=== PATIENT | male | born 1980 | race Caucasian/White ===

== ENCOUNTER 2020-07-15 15:00 | Outpatient (REF) | payer MEDICARE, MEDICAID, SELFPAY | END 2020-07-15 15:01 | disposition home or self-care (01) | LOC: HO.LAB 15:00 | PROVIDERS: PCP Internal Medicine; Visit Provider Internal Medicine | DX: Z20.828 Contact with and (suspected) exposure to other viral communicable diseases (principal) | CPT/HCPCS: 87635 ==

== ENCOUNTER 2020-10-10 13:14 | Outpatient (REF) | payer MEDICARE, MEDICAID, SELFPAY | END 2020-10-10 13:15 | disposition home or self-care (01) | LOC: HO.LAB 13:14 | PROVIDERS: PCP Internal Medicine; Visit Provider Internal Medicine | DX: Z20.822 Contact with and (suspected) exposure to COVID-19 (principal) | CPT/HCPCS: 36415; C9803; U0003 ==

== ENCOUNTER 2020-11-26 04:10 | Inpatient (IN) | payer MEDICARE, MEDICAID, SELFPAY ==
[2020-11-26] VITALS (10 sets, daily range): BP systolic 107–150; BP diastolic 66–91; PULSE 70–112; RESP 16–20; TEMP 36.4–37.4; O2SAT 94–100; BMI 34.4
--- NOTE | ~2020-11-26 | XR_ITS ---
EXAMINATION: XR SHOULDER, LEFT CLINICAL INFORMATION: Pain left shoulder COMPARISON: None TECHNIQUE: AP external rotation, Grashey, scapular Y, and axillary views of the left shoulder. FINDINGS: There is mild reduction in the left AC joint space with periarticular spurring. The glenohumeral joint space is normal. There is no visible acute fracture, dislocation or subluxation. The soft tissues are normal. XR/XR shoulder LT min 2V IMPRESSION: Mild degenerative changes left AC joint. No visible acute fracture or dislocation seen.
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
[2020-11-26] MEDS: LORazepam 1 MG TABLET 2 MG PO (04:40)
[2020-11-26 04:49] LABS: Basophils Absolute Auto 0.1 X10*3/uL (0.0-0.2); Basophils Percent Auto 0.5 % (0-2); Eosinophils Absolute Auto 0.1 X10*3/uL (0.0-0.4); Eosinophils Percent Auto 0.6 % (0-4); Imm Gran Abs Auto 0.04 X10*3/uL (0.00-0.03); Imm Gran Pct Auto 0.3 % (0.0-0.4); Lymphocytes Absolute Auto 3.7 X10*3/uL (1.2-4.9); Lymphocytes Percent Auto 25.8 % (20-40); Mean Corpuscular HGB Conc 34.1 g/dl (31.0-36.0); Mean Corpuscular Hemoglobin 29.8 pg (27.0-33.0); Mean Corpuscular Volume 87.3 fL (80-98); Mean Platelet Volume 9.1 fL (9.4-12.4); Monocytes Absolute Auto 0.9 X10*3/uL (0.1-1.2); Monocytes Percent Auto 6.3 % (2-11); Neutrophils Absolute Auto 9.5 X10*3/uL (2.0-8.3); Neutrophils Percent Auto 66.5 % (45-73); Platelet Count 414 X10*3/uL (160-400); Red Blood Count 5.04 X10*6/uL (4.60-5.80); Red Cell Distribution Width 13.2 % (11.0-16.0); White Blood Count 14.3 X10*3/uL (4.8-10.8)
[2020-11-26 04:50] LABS: MANUAL DIFF FLAG NO
--- NOTE | 2020-11-26 05:02 | PC.NURSE ---
AMBER ASSIGNED TO PT.
[2020-11-26 05:03] LABS: COVID-19 Test Negative (Negative)
[2020-11-26 05:12] LABS: Ethanol 149 mg/dL
[2020-11-26 05:16] LABS: Alanine Aminotransferase 20 U/L (0-40); Albumin Level 4.8 g/dL (3.5-5.0); Alkaline Phosphatase 64 U/L (39-117); Anion Gap 18 (12-20); Aspartate Amino Transferase 16 U/L (5-37); Bilirubin Direct < 0.2 mg/dL (0.0-0.5); Bilirubin Total 0.2 mg/dL (0.0-1.0); Blood Urea Nitrogen 12 mg/dL (9-16); Calcium 9.3 mg/dL (8.4-10.2); Carbon Dioxide 24 mmol/L (22-29); Chloride 104 mmol/L (96-108); Creatinine Clr Calc Pharmacy 85.2; Estimated Glomerular Filt Rate > 60; Glucose Random 114 mg/dL (60-115); Potassium 4.4 mmol/L (3.3-5.1); Sodium 142 mmol/L (135-145); Total Protein 7.8 g/dL (6.5-8.0)
[2020-11-26] MEDS: Ibuprofen 600 MG TABLET PO (05:49)
[2020-11-26 06:27] LABS: Amphetamine Screen Urine Not Detected (Not Detect); Barbiturates, Urine Not Detected (Not Detect); Benzodiazepines Screen Urine Not Detected (Not Detect); Cannabinoid Screen Urine POSITIVE (Not Detect); Cocaine Screen Urine POSITIVE (Not Detect); Opiate Screen Urine Not Detected (Not Detect); Phencyclidine Screen Urine Not Detected (Not Detect)
--- NOTE | 2020-11-26 07:03 | PC.NURSE ---
received report from Cherelle cruz pt is currently asleep, respirations even and unlabored, sitter in place
--- NOTE | 2020-11-26 09:42 | PC.NURSE ---
Pt transferred from main ED to Pod, report received from MOISES Villarreal. Pt awake, reports +SI, no plan ('whatever it takes.' Reports +etoh use daily, last used this morning. Pt in common area, familiar w/ pod, aware that he is waiting for [facility] evaluation. No other concerns reported at this time.
--- NOTE | 2020-11-26 11:26 | PC.NURSE ---
Pt alert, pleasant. awaiting [facility] evaluation. No concerns reported.
--- NOTE | 2020-11-26 12:00 | PC.NURSE ---
[facility] called to confirm receipt of fax- per clinician, fax received.
--- NOTE | 2020-11-26 14:25 | MHC.CARE ---
CARE Team assessed patient to need inpatient psychiatric treatment, he will remain in the ED until a placement is secured. At this time, patient is voluntary for treatment but is on a section 12A and considered not safe to leave. Providers updated about plan of care.
--- NOTE | 2020-11-26 16:30 | PC.NURSE ---
Pt resting, resp unlabored. Pt to xray and returned w/o incident.
--- NOTE | 2020-11-26 18:09 | PC.NURSE ---
Pt resting, denies any concerns at this time, no symptoms of withdrawal except for mild sensitivity.
[2020-11-27 00:11] VITALS: BP 126/75; PULSE 73; RESP 17; TEMP 36.9; O2SAT 97
[2020-11-27] MEDS: QUEtiapine Fumarate 50 MG TABLET 100 MG PO (00:37)
--- NOTE | 2020-11-27 00:49 | PC.NURSE ---
Patient reported he is struggling to sleep needs medication for help, stated he used to take serequel 300 mg at bedtime, pharmacy claim history checked and patient was Serequel 300 mg untill last January, provide notified/ordered Serequel 100 mg administered as ordered/pending effect, will continue to monitor.
--- NOTE | 2020-11-27 08:51 | PC.NURSE ---
PT SLEEPING. BEDSEARCH CONTINUES. CLOSE OBSERVATION MAINTAINED
[2020-11-27 08:54] VITALS: RESP 16
--- NOTE | 2020-11-27 15:16 | PC.NURSE ---
Pt asleep at current. No signs of distress. Respirations even and unlabored.
[2020-11-27 16:34] VITALS: BP 147/86; PULSE 89; RESP 20; TEMP 36.1; O2SAT 100
--- NOTE | 2020-11-27 17:02 | PC.NURSE ---
Pt reporting increasing anxiety, requesting medication. Provider aware.
[2020-11-27] MEDS: LORazepam 1 MG TABLET 2 MG PO (17:08)
--- NOTE | 2020-11-27 17:47 | PC.NURSE ---
Pt meeting with recovery unit operator at current
--- NOTE | 2020-11-27 17:53 | MHC.RECOVSUP ---
? Reason for consult : Support o Current location: [facility] o Identified substance use concern: Cocaine - Support ? Intervention: o Community resources provided o Harm reduction discussion ? Plan: o Patient to follow up with H after discharge ? Additional information: Patient is looking for support in his recovery.. Resources was given to Patient. Places that he would be able to go when he discharge from [facility] and find support he is looking for
--- NOTE | 2020-11-27 19:14 | PC.NURSE ---
Patient in milieu watching TV, socializing with co-patient, mood pleasant, no distress reported, will continue to monitor.
[2020-11-27] MEDS: QUEtiapine Fumarate 200 MG TABLET 100 MG PO (21:12)
--- NOTE | 2020-11-27 22:03 | PC.NURSE ---
Patient in bed appears resting, took his Serequel 100 mg as requested, no distress reported, will continue to monitor.
[2020-11-28] VITALS: BP 109/79; PULSE 113; RESP 18; TEMP 36.2; O2SAT 96
--- NOTE | 2020-11-28 | ECG_ITS ---
Test Reason : COCAINE USE Blood Pressure : / mmHG Vent. Rate : 071 BPM Atrial Rate : 071 BPM P-R Int : 148 ms QRS Dur : 096 ms QT Int : 390 ms P-R-T Axes : 011 059 016 degrees QTc Int : 423 ms Normal sinus rhythm Nonspecific ST and T wave abnormality Abnormal ECG When compared with ECG of 26-DEC-2019 11:03, No significant change was found Referred By: Yahir Grissom Electronically Signed By:FRANCOISE ADAMS MD
[2020-11-28 06:00] VITALS: RESP 18
--- NOTE | 2020-11-28 07:03 | PC.NURSE ---
Report received. PT currently sleeping, respirations even and unlabored, in no apparent distress. PT is inpatient bedsearch.
[2020-11-28 09:00] VITALS: BP 114/62; PULSE 73; RESP 18; TEMP 37; O2SAT 97
[2020-11-28] MEDS: LORazepam 1 MG TABLET 2 MG PO (10:50)
--- NOTE | 2020-11-28 12:39 | PC.NURSE ---
Nurse to nurse completed with Mary Jane from
[2020-11-28 16:20] VITALS: BP 130/67; PULSE 80; TEMP 36.9
[2020-11-28] MEDS: LORazepam 0.5 MG TABLET 1 MG PO (20:04)
--- NOTE | 2020-11-28 20:13 | PC.NURSE ---
this is one of several M5 admissions for this 40 year old male. legal CV. dx MDD, cocaine/alcohol use d/o. was referred to by N as well as the CARE team. nurse to nurse and collateral information obtained prior to admission. pt with no significant medical issues. cooperative to admission process. reports + depression and anxiety. reports + si with increase in thoughts when using substances but feels supported in hospital environment. reports poor sleep due to intrusive nightmares and reports feeling easily triggered. is homeless and recently sold car and belongings he had in storage. reports + ah. reports + street drug and alcohol intake. when asked how he supports use responded ''you can figure those things out'' ''I hustle'' reports binge drinking of alcohol several times a month with use of cocaine ''a gram at a time'' last use prior to ER admit. denies current w/d s/s ''i don't experience w/d'' [facility] VS:130/67, 80. reports he needs mental health treatment and does not want to consider placement at a [facility] at this time. has + behavioral health providers. reports being on probation but does not need to check in with them at this time but did sign release , also reports he needs to call the [place] court system tomorrow as he has a pending court date. oriented to unit. is visible in milieu.
--- NOTE | 2020-11-28 20:52 | PC.ADMIT ---
pharmacy-[facility] reports that pt has not had filled prescription for latuda since May. Seroquel he reports taking 300mg at hs is from an old prescription. reports medication clarification can be obtained from provider Jitendra Davalos
[2020-11-28] MEDS: QUEtiapine Fumarate 100 MG TABLET PO (23:12)
[2020-11-29] MEDS: traZODone HCL 50 MG TABLET PO (00:37)
[2020-11-29] MEDS: LORazepam 0.5 MG TABLET 1 MG PO ×3 (00:37→22:01)
[2020-11-29 06:00] VITALS: BP 96/58; PULSE 82; RESP 16; TEMP 36.7
[2020-11-29] MEDS: Lurasidone HCl 20 MG TABLET PO (08:25)
[2020-11-29] MEDS: Nicotine 21 MG PATCH.TD24 TRANSDERMA (08:25)
[2020-11-29 08:44] LABS: Cholesterol 239 mg/dL; Estimated Average Glucose 117 mg/dL; HDL Cholesterol 45 mg/dL; Hemoglobin A1c % 5.7 %; LDL Cholesterol Calculated 125 mg/dl; Triglycerides 345 mg/dL
[2020-11-29 09:08] LABS: Free T4 (Free Thyroxine) 1.01 ng/dL (0.71-1.85); Thyroid Stimulating Hormone 2.42 uIU/mL (0.32-4.0)
[2020-11-29 12:00] VITALS: BP 134/85; PULSE 86; RESP 18; TEMP 36.1; O2SAT 97
[2020-11-29 16:00] VITALS: BP 136/78; PULSE 89; TEMP 37.1
[2020-11-29 18:00] VITALS: BP 136/78; PULSE 89; TEMP 37.1
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
[2020-11-29] MEDS: QUEtiapine Fumarate 200 MG TABLET PO (22:01)
[2020-11-30 06:20] VITALS: BP 97/55; PULSE 67; RESP 18; TEMP 36.2; O2SAT 97
[2020-11-30 08:00] VITALS: BP 123/56; PULSE 66; RESP 16; TEMP 36.2; O2SAT 97
[2020-11-30] MEDS: Nicotine 21 MG PATCH.TD24 TRANSDERMA (08:56)
[2020-11-30] MEDS: Lurasidone HCl 20 MG TABLET PO (08:57)
[2020-11-30 10:00] VITALS: BP 104/58; PULSE 56; RESP 16; TEMP 36.9; O2SAT 97
[2020-11-30 11:53] LABS: Folate 15.9 ng/mL (> or = 4.0); Vitamin B12 442 pg/mL (200-900)
--- NOTE | 2020-11-30 12:13 | P.PNPSI_ITS ---
Subjective Subjective Date of Service: 11/30/20 Reason For Visit: Alcohol cocaine cannabis use D/O major depression Subjective Notes: Conditional Voluntary Interim History: Patient was pleasant and cooperative. Reported difficulties with insomnia and racing thoughts. I discussed CSS and patient is interested in [facility]. Later in afternoon patient became agitated and needed p.r.n. meds per staff. Will continue to monitor. Encourage abstinence and motivation Medication Compliance: Yes Side effects from medications: No Attending Groups: No Review of Systems Review of Systems Constitutional : No Fever, No Chills ENT/Mouth : No Ear Pain, No Nasal Congestion, No sore throat Eyes: No Eye Pain, No Swelling, No Redness Cardiovascular : No Chest Pain, No SOB Respiratory : No Cough, No Sputum, No Dyspnea Gastrointestinal : No Nausea, No Vomiting, No Diarrhea, No Hematochezia, No Melena Genitourinary : No Dysuria, No Urinary Frequency, No Hematuria Musculoskeletal : No Myalgias Skin : No Skin Lesions, No rash Neuro : No Weakness, No Numbness, No Paresthesias, No Dizziness, No Headache Psych : positive Anxiety, positive Depression, positive SI/HI Heme/Lymph: No Lymphadenopathy Endocrine : No Polyuria, No Polydipsia All other systems reviewed and are negative Reports behavioral changes Psychiatric: Reports anxiety, Reports behavioral changes, Reports depression, Reports difficulty concentrating, Reports hopelessness, Reports irritability, Reports mood swings, Reports homicidal ideation and Reports suicidal ideation Mental Status Exam Mental Status Exam Patient Appearance: Appropriate Patient Orientation: Person, Place, Time and Situation Level of Consciousness: Alert Patient Behavior: Talkative Mood Description: Labile and Angry Affect Description: Labile Patient Cognition Impaired: No Ability to Follow Directions: Good Speech Pattern: Spontaneous Speech and Loud Memory Description: Intact Diagnostics Vital Signs (24Hr): Vital Signs - 24 hr 11/29/20 16:00 11/29/20 18:00 11/30/20 06:20 Temperature 98.7 F 98.7 F 97.2 F Pulse Rate 89 89 67 Respiratory Rate 18 Blood Pressure 136/78 136/78 97/55 L Pulse Oximetry 97 11/30/20 08:00 11/30/20 10:00 Temperature 97.2 F 98.4 F Pulse Rate 66 56 Respiratory Rate 16 16 Blood Pressure 123/56 L 104/58 L Pulse Oximetry 97 97 Body Mass Index 34.4 Labs Results: 11/26/20 04:42 11/26/20 04:42 Labs: Laboratory Results - last 48 hr 11/29/20 11/29/20 11/29/20 08:03 08:03 08:03 Estimat Average Glucose 117 Hemoglobin A1c % 5.7 Magnesium 2.0 Triglycerides 345 Cholesterol 239 LDL Cholesterol, Calc 125 HDL Cholesterol 45 Vitamin B12 442 Folate 15.9 TSH 2.42 Free T4 1.01 Imaging Radiology Impressions: ITS Impressions Shoulder X-Ray 11/26/20 15:32 IMPRESSION: Mild degenerative changes left AC joint. No visible acute fracture or dislocation seen. Medications Medications Current Medications Generic Name Dose Route Start Last Admin Trade Name Freq PRN Reason Stop Dose Admin Acetaminophen 650 mg 11/28/20 13:03 Acetaminophen 325 Mg Tablet PO Q6H PRN Headache/Pain Mild Scale (1-3) Al Hydroxide/Mg Hydroxide 30 ml 11/28/20 13:03 Magnesium Hydrox/Alum Hydrox 30 Ml Oral.Susp PO Q6H PRN Heartburn/Nausea Hydroxyzine HCl 25 mg 11/28/20 13:03 Hydroxyzine Hcl 25 Mg Tablet PO BEDTIME PRN Anxiety Lorazepam 1 mg 11/28/20 13:03 11/29/20 22:01 Lorazepam 0.5 Mg Tablet PO 1 mg Q4H PRN Administration withdrawl, anxiety Lurasidone HCl 20 mg 11/29/20 09:00 11/30/20 08:57 Lurasidone Hcl 20 Mg Tablet PO 20 mg DAILY FLORENTIN Administration Magnesium Hydroxide 30 ml 11/28/20 13:03 Milk Of Magnesia 30 Ml Oral.Susp PO DAILY PRN Constipation Nicotine 21 mg 11/28/20 20:25 11/30/20 08:56 Nicotine 21 Mg Patch.Td24 TRANSDERMA 21 mg DAILY FLORENTIN Administration Nicotine Polacrilex 2 mg 11/28/20 20:20 Nicotine Polacrilex 2 Mg Lozenge BUCCAL Q2H PRN Nicotine Cravings Quetiapine Fumarate 200 mg 11/29/20 21:00 11/29/20 22:01 Quetiapine Fumarate 200 Mg Tablet PO 200 mg BEDTIME FLORENTIN Administration Trazodone HCl 50 mg 11/28/20 13:03 11/29/20 00:37 Trazodone Hcl 50 Mg Tablet PO 50 mg BEDTIME PRN Administration Insomnia Allergies Allergies Allergy/AdvReac Type Severity Reaction Status Date / Time No Known Allergies Allergy Unverified 06/06/20 16:26 [No Known Allergies*] Assessment & Plan Assessment & Plan (1) Bipolar 1 disorder: Status: Acute Code(s): F31.9 - Bipolar disorder, unspecified Assessment and Plan: -Increase Seroquel to 300 mg q.h.s. and add p.r.n.. Greater than 50% of the session was spent on counseling and/or coordination of care Reason for contiued inpatient stay Substantial Risk for: harm to self and rapid decompensation
[2020-11-30] MEDS: LORazepam 0.5 MG TABLET 1 MG PO ×2 (13:58→18:51)
[2020-11-30] MEDS: QUEtiapine Fumarate 100 MG TABLET PO (16:17)
[2020-11-30 18:00] VITALS: BP 132/84; PULSE 89; RESP 18; TEMP 36.6
[2020-11-30] MEDS: QUEtiapine Fumarate 300 MG TABLET PO (21:34)
[2020-12-01 06:35] VITALS: PULSE 71; RESP 18; TEMP 36.4; O2SAT 97
[2020-12-01 08:00] VITALS: BP 118/75; PULSE 70; RESP 16; TEMP 36.6; O2SAT 97
--- NOTE | 2020-12-01 08:02 | HO.PSYCHPN ---
Subjective Subjective Date of Service: 12/01/20 Reason For Visit: Alcohol cocaine cannabis use D/O major depression Interim History: 12/01/2020: Patient had a difficult afternoon yesterday. But responded well to p.r.n. . Was triggered by a male peer. Continues to experience agitation and anxiety. 11/30/2020atient was pleasant and cooperative. Reported difficulties with insomnia and racing thoughts. I discussed CSS and patient is interested in [facility]. Later in afternoon patient became agitated and needed p.r.n. meds per staff. Will continue to monitor. Encourage abstinence and motivation Review of Systems Review of Systems Constitutional : No Fever, No Chills ENT/Mouth : No Ear Pain, No Nasal Congestion, No sore throat Eyes: No Eye Pain, No Swelling, No Redness Cardiovascular : No Chest Pain, No SOB Respiratory : No Cough, No Sputum, No Dyspnea Gastrointestinal : No Nausea, No Vomiting, No Diarrhea, No Hematochezia, No Melena Genitourinary : No Dysuria, No Urinary Frequency, No Hematuria Musculoskeletal : No Myalgias Skin : No Skin Lesions, No rash Neuro : No Weakness, No Numbness, No Paresthesias, No Dizziness, No Headache Psych : positive Anxiety, positive Depression, positive SI/HI Heme/Lymph: No Lymphadenopathy Endocrine : No Polyuria, No Polydipsia All other systems reviewed and are negative Reports behavioral changes Psychiatric: Reports anxiety, Reports behavioral changes, Reports depression, Reports difficulty concentrating, Reports hopelessness, Reports irritability, Reports mood swings, Reports homicidal ideation and Reports suicidal ideation Mental Status Exam Mental Status Exam Patient Appearance: Appropriate Patient Orientation: Person, Place, Time and Situation Level of Consciousness: Alert Patient Behavior: Talkative Mood Description: Labile and Angry Affect Description: Labile Patient Cognition Impaired: No Ability to Follow Directions: Good Speech Pattern: Spontaneous Speech and Loud Memory Description: Intact Diagnostics Vital Signs (24Hr): Vital Signs - 24 hr 11/30/20 08:00 11/30/20 10:00 11/30/20 18:00 Temperature 97.2 F 98.4 F 97.8 F Pulse Rate 66 56 89 Respiratory Rate 16 16 18 Blood Pressure 123/56 L 104/58 L 132/84 Pulse Oximetry 97 97 12/01/20 06:35 Temperature 97.6 F Pulse Rate 71 Respiratory Rate 18 Blood Pressure Pulse Oximetry 97 Body Mass Index 34.4 Labs Results: 11/26/20 04:42 11/26/20 04:42 Labs: Laboratory Results - last 48 hr 11/29/20 11/29/20 11/29/20 08:03 08:03 08:03 Estimat Average Glucose 117 Hemoglobin A1c % 5.7 Magnesium 2.0 Triglycerides 345 Cholesterol 239 LDL Cholesterol, Calc 125 HDL Cholesterol 45 Vitamin B12 442 Folate 15.9 TSH 2.42 Free T4 1.01 Imaging Radiology Impressions: ITS Impressions Shoulder X-Ray 11/26/20 15:32 IMPRESSION: Mild degenerative changes left AC joint. No visible acute fracture or dislocation seen. Medications Medications Current Medications Generic Name Dose Route Start Last Admin Trade Name Freq PRN Reason Stop Dose Admin Acetaminophen 650 mg 11/28/20 13:03 Acetaminophen 325 Mg Tablet PO Q6H PRN Headache/Pain Mild Scale (1-3) Al Hydroxide/Mg Hydroxide 30 ml 11/28/20 13:03 Magnesium Hydrox/Alum Hydrox 30 Ml Oral.Susp PO Q6H PRN Heartburn/Nausea Hydroxyzine HCl 25 mg 11/28/20 13:03 Hydroxyzine Hcl 25 Mg Tablet PO BEDTIME PRN Anxiety Lorazepam 1 mg 11/28/20 13:03 11/30/20 18:51 Lorazepam 0.5 Mg Tablet PO 1 mg Q4H PRN Administration withdrawl, anxiety Lurasidone HCl 20 mg 11/29/20 09:00 11/30/20 08:57 Lurasidone Hcl 20 Mg Tablet PO 20 mg DAILY FLORENTIN Administration Magnesium Hydroxide 30 ml 11/28/20 13:03 Milk Of Magnesia 30 Ml Oral.Susp PO DAILY PRN Constipation Nicotine 21 mg 11/28/20 20:25 11/30/20 08:56 Nicotine 21 Mg Patch.Td24 TRANSDERMA 21 mg DAILY FLORENTIN Administration Nicotine Polacrilex 2 mg 11/28/20 20:20 Nicotine Polacrilex 2 Mg Lozenge BUCCAL Q2H PRN Nicotine Cravings Quetiapine Fumarate 100 mg 11/30/20 16:05 11/30/20 16:17 Quetiapine Fumarate 100 Mg Tablet PO 50 mg Q4H PRN Administration anxiety/restlessness Quetiapine Fumarate 300 mg 11/30/20 21:00 11/30/20 21:34 Quetiapine Fumarate 300 Mg Tablet PO 300 mg BEDTIME FLORENTIN Administration Trazodone HCl 50 mg 11/28/20 13:03 11/29/20 00:37 Trazodone Hcl 50 Mg Tablet PO 50 mg BEDTIME PRN Administration Insomnia Allergies Allergies Allergy/AdvReac Type Severity Reaction Status Date / Time No Known Allergies Allergy Unverified 06/06/20 16:26 [No Known Allergies*] Assessment & Plan Assessment & Plan (1) Bipolar 1 disorder: Status: Acute Code(s): F31.9 - Bipolar disorder, unspecified Assessment and Plan: -Increase Seroquel to 300 mg q.h.s. and add p.r.n.. Greater than 50% of the session was spent on counseling and/or coordination of care Reason for contiued inpatient stay Substantial Risk for: harm to self and inability to function
[2020-12-01] MEDS: Lurasidone HCl 20 MG TABLET PO (08:32)
[2020-12-01] MEDS: Nicotine 21 MG PATCH.TD24 TRANSDERMA (08:32)
[2020-12-01] MEDS: LORazepam 0.5 MG TABLET 1 MG PO ×3 (11:25→20:50)
[2020-12-01 18:00] VITALS: BP 127/74; PULSE 95; RESP 18; TEMP 36.3
[2020-12-01] MEDS: QUEtiapine Fumarate 100 MG TABLET PO (20:50)
[2020-12-01 20:54] VITALS: BP 130/78; PULSE 103; RESP 18; TEMP 36.7
[2020-12-01] MEDS: QUEtiapine Fumarate 300 MG TABLET PO (22:12)
[2020-12-02 03:50] VITALS: BP 110/71; PULSE 100; RESP 18; TEMP 36.3; O2SAT 97
[2020-12-02] MEDS: Lurasidone HCl 20 MG TABLET PO (10:07)
[2020-12-02] MEDS: LORazepam 0.5 MG TABLET 1 MG PO ×2 (10:47→15:52)
[2020-12-02] MEDS: QUEtiapine Fumarate 100 MG TABLET PO (15:52)
[2020-12-02 16:00] VITALS: BP 128/71; PULSE 90; RESP 18; TEMP 36.5
--- NOTE | 2020-12-02 17:32 | HO.PSYCHPN ---
Subjective Subjective Date of Service: 12/02/20 Reason For Visit: Alcohol cocaine cannabis use D/O major depression Subjective Notes: Conditional Voluntary Interim History: Pt reports sleep latency sx, 2-3 hours. Once asleep is able to remain asleep. Ongoing SI, discussed hearing voices, since youth. Main issue is my drifting situation . Son learned of pt's admission over the weekend. Pt discussed his ongoing worry and rumination regarding son's mother. She has had a conversation with pt regarding his needing to stabilize to care for their son-he worries she has a terminal illness as she has recently had medical issues that were serious. This concept is overwhelming, citing housing as the structural issue, however taking on primary parenting responsibility is a thought he does not begin to know how to prepare for. States niece told his son he was hospitalized-he was able to explain but with great anxiety and distress. Unsure if he can manage this, but wants guidance to try. Medication Compliance: Yes Side effects from medications: No Attending Groups: No Review of Systems Review of Systems Yes all other systems are reviewed and are negative (denies medical sx.) Reports behavioral changes Psychiatric: Reports abnormal sleep pattern, Reports anxiety, Reports behavioral changes, Reports depression, Reports difficulty concentrating, Reports auditory hallucinations, Reports hopelessness, Reports irritability, Reports mood swings and Reports panic attacks Mental Status Exam Mental Status Exam Patient Appearance: Disheveled (towel over his head) Patient Orientation: Person, Place, Time and Situation Level of Consciousness: Awake Patient Behavior: Appropriate, Talkative, Cooperative, Anxious, Distractible and Good Eye Contact Mood Description: Constricted Affect Description: Constricted Patient Cognition Impaired: No Ability to Follow Directions: Good Speech Pattern: Clear and Spontaneous Speech Memory Description: Intact Hallucinations: Auditory Delusions: Not Present Thought Content: positive for [place] and positive for Circumstantial Depressive Symptoms: Increased Anxiety, Insomnia, Diff. Making Decisions, Increased Irritability, Difficulty Sleeping, Feelings of Worthlessness, Feelings of Guilt, Unhappiness, Thoughts of /Suicide (+ SI) and Low Self Esteem Judgement: Fair Diagnostics Vital Signs (24Hr): Vital Signs - 24 hr 12/01/20 18:00 12/01/20 20:54 12/02/20 03:50 Temperature 97.4 F 98.0 F 97.4 F Pulse Rate 95 103 H 100 Respiratory Rate 18 18 18 Blood Pressure 127/74 130/78 110/71 Pulse Oximetry 97 Body Mass Index 34.4 Labs Results: 11/26/20 04:42 11/26/20 04:42 Imaging Radiology Impressions: ITS Impressions Shoulder X-Ray 11/26/20 15:32 IMPRESSION: Mild degenerative changes left AC joint. No visible acute fracture or dislocation seen. Medications Medications Current Medications Generic Name Dose Route Start Last Admin Trade Name Freq PRN Reason Stop Dose Admin Acetaminophen 650 mg 11/28/20 13:03 Acetaminophen 325 Mg Tablet PO Q6H PRN Headache/Pain Mild Scale (1-3) Al Hydroxide/Mg Hydroxide 30 ml 11/28/20 13:03 Magnesium Hydrox/Alum Hydrox 30 Ml Oral.Susp PO Q6H PRN Heartburn/Nausea Hydroxyzine HCl 25 mg 11/28/20 13:03 Hydroxyzine Hcl 25 Mg Tablet PO BEDTIME PRN Anxiety Lorazepam 1 mg 11/28/20 13:03 12/02/20 15:52 Lorazepam 0.5 Mg Tablet PO 1 mg Q4H PRN Administration withdrawl, anxiety Lurasidone HCl 20 mg 11/29/20 09:00 12/02/20 10:07 Lurasidone Hcl 20 Mg Tablet PO 20 mg DAILY FLORENTIN Administration Magnesium Hydroxide 30 ml 11/28/20 13:03 Milk Of Magnesia 30 Ml Oral.Susp PO DAILY PRN Constipation Nicotine 21 mg 11/28/20 20:25 12/02/20 10:09 Nicotine 21 Mg Patch.Td24 TRANSDERMA Not Given DAILY FLORENTIN Nicotine Polacrilex 2 mg 11/28/20 20:20 Nicotine Polacrilex 2 Mg Lozenge BUCCAL Q2H PRN Nicotine Cravings Quetiapine Fumarate 100 mg 11/30/20 16:05 12/02/20 15:52 Quetiapine Fumarate 100 Mg Tablet PO 100 mg Q4H PRN Administration anxiety/restlessness Quetiapine Fumarate 300 mg 11/30/20 21:00 12/01/20 22:12 Quetiapine Fumarate 300 Mg Tablet PO 300 mg BEDTIME FLORENTIN Administration Trazodone HCl 50 mg 11/28/20 13:03 11/29/20 00:37 Trazodone Hcl 50 Mg Tablet PO 50 mg BEDTIME PRN Administration Insomnia Allergies Allergies Allergy/AdvReac Type Severity Reaction Status Date / Time No Known Allergies Allergy Unverified 06/06/20 16:26 [No Known Allergies*] Assessment & Plan Assessment & Plan (1) Bipolar 1 disorder: Status: Acute Code(s): F31.9 - Bipolar disorder, unspecified Assessment and Plan: -Increase Latuda to 40 mg daily. -Remeron 7.5 mg hs Greater than 50% of the session was spent on counseling and/or coordination of care Reason for contiued inpatient stay Substantial Risk for: harm to self, inability to function and rapid decompensation
[2020-12-02 18:00] VITALS: BP 128/71; PULSE 90; RESP 18; TEMP 36.5
[2020-12-02] MEDS: Mirtazapine 7.5 MG TABLET PO (22:03)
[2020-12-02] MEDS: Lurasidone HCl 40 MG TABLET PO (22:03)
[2020-12-02] MEDS: QUEtiapine Fumarate 300 MG TABLET PO (22:03)
[2020-12-03 06:25] VITALS: BP 87/54; PULSE 70; RESP 20; TEMP 36.4; O2SAT 97
[2020-12-03] MEDS: LORazepam 0.5 MG TABLET 1 MG PO (09:25)
[2020-12-03 12:48] LABS: COVID-19 Test Negative (Negative)
[2020-12-03] MEDS: QUEtiapine Fumarate 100 MG TABLET PO (14:16)
[2020-12-03] MEDS: LORazepam 1 MG TABLET 2 MG PO (17:11)
[2020-12-03 17:35] VITALS: BP 135/66; PULSE 101; TEMP 37.1
[2020-12-03] MEDS: Lurasidone HCl 40 MG TABLET PO (17:52)
--- NOTE | 2020-12-03 18:08 | HO.PSYCHPN ---
Subjective Subjective Date of Service: 12/03/20 Reason For Visit: Alcohol cocaine cannabis use D/O major depression Subjective Notes: 3 Day Interim History: Pt reports that his former employer has offered him a job and an apartment. Ex-partner has offered assistance with transportation to the job. Ex-partner and son visited and pt reports he is wanting to take this opportunity. Reviewed current symptoms. Pt reports sleep latency continues to be about 1.5 hours. Appetite is intact. Symptoms of depression and SI are lessened, denies current SI, plan or intent stating- I just need help with resources-then I need to take responsibility and make things work . Having a place to live is everything-the help from my boss and ex I am very thankful for. I need to take meds, not use and follow up. Medication Compliance: Yes Side effects from medications: No Attending Groups: No Review of Systems Review of Systems Yes all other systems are reviewed and are negative (denies today) Mental Status Exam Mental Status Exam Patient Appearance: Appropriate Patient Orientation: Person, Place, Time and Situation Level of Consciousness: Alert Patient Behavior: Talkative Mood Description: Anxious, Labile and Apprehensive Affect Description: Labile Patient Cognition Impaired: No Ability to Follow Directions: Good Speech Pattern: Spontaneous Speech Memory Description: Intact Hallucinations: None Delusions: Not Present Thought Process: Intact Thought Content: positive for Intact Depressive Symptoms: Increased Anxiety, Increased Irritability and Low Self Esteem Judgement: Good Diagnostics Vital Signs (24Hr): Vital Signs - 24 hr 12/03/20 06:25 Temperature 97.6 F Pulse Rate 70 Respiratory Rate 20 Blood Pressure 87/54 L Pulse Oximetry 97 Body Mass Index 34.4 Labs Results: 11/26/20 04:42 11/26/20 04:42 Labs: Laboratory Results - last 48 hr 12/03/20 12:09 COVID-19 ([facility]) Negative COVID-19 Clin Com See Note Imaging Radiology Impressions: ITS Impressions Shoulder X-Ray 11/26/20 15:32 IMPRESSION: Mild degenerative changes left AC joint. No visible acute fracture or dislocation seen. Medications Medications Current Medications Generic Name Dose Route Start Last Admin Trade Name Freq PRN Reason Stop Dose Admin Acetaminophen 650 mg 11/28/20 13:03 Acetaminophen 325 Mg Tablet PO Q6H PRN Headache/Pain Mild Scale (1-3) Al Hydroxide/Mg Hydroxide 30 ml 11/28/20 13:03 Magnesium Hydrox/Alum Hydrox 30 Ml Oral.Susp PO Q6H PRN Heartburn/Nausea Hydroxyzine HCl 25 mg 11/28/20 13:03 Hydroxyzine Hcl 25 Mg Tablet PO BEDTIME PRN Anxiety Lurasidone HCl 40 mg 12/02/20 21:00 12/02/20 22:03 Lurasidone Hcl 40 Mg Tablet PO 40 mg BEDTIME FLORENTIN Administration Magnesium Hydroxide 30 ml 11/28/20 13:03 Milk Of Magnesia 30 Ml Oral.Susp PO DAILY PRN Constipation Mirtazapine 7.5 mg 12/02/20 21:00 12/02/20 22:03 Mirtazapine 7.5 Mg Tablet PO 7.5 mg BEDTIME FLORENTIN Administration Nicotine 21 mg 11/28/20 20:25 12/03/20 08:40 Nicotine 21 Mg Patch.Td24 TRANSDERMA Not Given DAILY FLORENTIN Nicotine Polacrilex 2 mg 11/28/20 20:20 Nicotine Polacrilex 2 Mg Lozenge BUCCAL Q2H PRN Nicotine Cravings Quetiapine Fumarate 100 mg 11/30/20 16:05 12/03/20 14:16 Quetiapine Fumarate 100 Mg Tablet PO 100 mg Q4H PRN Administration anxiety/restlessness Quetiapine Fumarate 300 mg 11/30/20 21:00 12/02/20 22:03 Quetiapine Fumarate 300 Mg Tablet PO 300 mg BEDTIME FLORENTIN Administration Trazodone HCl 50 mg 11/28/20 13:03 11/29/20 00:37 Trazodone Hcl 50 Mg Tablet PO 50 mg BEDTIME PRN Administration Insomnia Allergies Allergies Allergy/AdvReac Type Severity Reaction Status Date / Time No Known Allergies Allergy Unverified 06/06/20 16:26 [No Known Allergies*] Assessment & Plan Assessment & Plan (1) Bipolar 1 disorder: Status: Acute Code(s): F31.9 - Bipolar disorder, unspecified Assessment and Plan: Tentative discharge for tomorrow on TDN (2) Polysubstance abuse: Status: Acute Code(s): F19.10 - Other psychoactive substance abuse, uncomplicated Greater than 50% of the session was spent on counseling and/or coordination of care Reason for contiued inpatient stay Substantial Risk for: stable for discharge
[2020-12-03] MEDS: QUEtiapine Fumarate 300 MG TABLET PO (21:58)
[2020-12-03] MEDS: Mirtazapine 7.5 MG TABLET PO (21:58)
[2020-12-04 06:30] VITALS: BP 94/51; PULSE 70; RESP 18; TEMP 36.3; O2SAT 97
--- NOTE | 2020-12-04 15:32 | PM.PSYDC ---
DS: Providers Provider Date of Service: 12/22/20 Date of admission: 11/28/20 13:03 Date of discharge: 12/04/20 Primary care physician: Jaime Hackett MD Admitting clinician: Lia Palomino Attending physician on admission: Raulito Baez Attending physician on discharge: Raulito Baez Discharging clinician: Lia Palomino DS: Diagnosis Discharge Diagnosis (1) Bipolar 1 disorder: Status: Acute Problem details: 40 yo male, to ER from mother's home after he threatened violence and suicide due to issues of homelessness, conflict within the family, substance abuse and underdeveloped coping skills. Pt reported to ER team auditory perceptual alteractions, command, telling him to burn the apartment building down. He reported a history of bipolar disorder diagnosis and treatment, having recently initiated Latuda with his out patient team, but had stopped taking this for approximately 5 weeks ORAL AND MAXILLOFACIAL SURGERY due to not attending appointments. (2) Polysubstance abuse: Status: Acute Problem details: Pt reports daily alcohol use, daily cocaine use and intermittent cannabis use. DS: Medications Discharge Medications Home Medications: Home Medications Medication Instructions Recorded Confirmed No Known Home Meds 11/29/20 11/29/20 Previous Rx's Medication Instructions Recorded lurasidone [Latuda] 40 mg PO BEDTIME #30 tab 12/04/20 mirtazapine 7.5 mg PO BEDTIME #30 tab 12/04/20 quetiapine 300 mg PO BEDTIME #30 tab 12/04/20 Discharge Plan Discharge Anticipated Discharge Date/Time: 12/04/20 12:00 Patient Disposition: Home, Self-Care Referrals: Cherelle Minor (therapist) [Other] - 12/10/20 12:00 pm (Telehealth appointment) Amee Walter (psychiatrist) [Other] - 01/01/21 10:00 am (Telehealth appointment) Jaime Hackett MD [Primary Care Provider] - 12/16/20 2:00 pm (in office) Discharge Medications: New Latuda 40 mg Tablet 40 mg PO BEDTIME Qty: 30 RF: 0 mirtazapine 7.5 mg Tablet 7.5 mg PO BEDTIME Qty: 30 RF: 0 quetiapine 300 mg Tablet 300 mg PO BEDTIME Qty: 30 RF: 0 No Action No Known Home Meds RF: 0 Discharge Orders: Discharge Order (Routine); Ordered 12/04/20 Ordered By: Lia Palomino Diet: advance to usual diet Activity on Discharge: As tolerated Stand Alone Forms: Patient Portal Discharge page, Community Support Care Plan Goals: Mood stabilization Sobriety Health Concerns: Bipolar Disorder Polysubstance Use Plan of Treatment: Attend scheduled appointments Take medications as directed You have chosen to leave the hospital before discharge was recommended. Your medications will be in need of adjustment. You may follow up with your out patient providers for this. You have indicated that you have been offered work and housing by your employer, thus your reason to leave early. Call and or return if you are feeling unsafe or believe you need re-evaluation for in patient care. Discharge Date/Time: 12/04/20 12:30 Mental Status Exam Mental Status Exam Patient Appearance: Appropriate Patient Orientation: Person, Place, Time and Situation Level of Consciousness: Alert Patient Behavior: Talkative and Anxious Mood Description: Constricted Affect Description: Constricted Patient Cognition Impaired: No Ability to Follow Directions: Good Speech Pattern: Spontaneous Speech Memory Description: Intact Hallucinations: None Delusions: Not Present Thought Process: Intact Thought Content: positive for Intact, positive for [place] and positive for Circumstantial Abnormal Motor Activity Signs and Symptoms: Restlessness Judgement: Good Data Data Completed and Pending Completed studies during hospitalization [Text1]: 11/29/20 11/29/20 11/29/20 08:03 08:03 08:03 Estimat Average Glucose 117 Hemoglobin A1c % 5.7 Magnesium 2.0 Triglycerides 345 Cholesterol 239 LDL Cholesterol, Calc 125 HDL Cholesterol 45 Vitamin B12 442 Folate 15.9 TSH 2.42 Free T4 1.01 COVID-19 ([facility]) COVID-19 Clin Com 12/03/20 12:09 Estimat Average Glucose Hemoglobin A1c % Magnesium Triglycerides Cholesterol LDL Cholesterol, Calc HDL Cholesterol Vitamin B12 Folate TSH Free T4 COVID-19 ([facility]) Negative COVID-19 Clin Com See Note Imaging Diagnostic Imaging Impressions Shoulder X-Ray 11/26/20 15:32 IMPRESSION: Mild degenerative changes left AC joint. No visible acute fracture or dislocation seen. DS: Summary Hospital Course Hospital Course: Pt signed a conditional voluntary for admission. He identified several stressors which, combined with his bipolar disorder and substance abuse precipitated increased lability and suicidal ideation, including chronic homelessness for approximately 10 years. Pt was accepted for [place] housing in 2019, however, he reports his mother declined this offer for him without his awareness. This initiated a family conflict and significant anger toward mother which persists and is an issue. Mother lives in senior housing and pt is unable to stay with her and as a result lives with friends, in friends cars etc. Pt also has no license, no transportation and no job. Recently, the mother of his 12 yo son confronted him and told him he needed to get his life organized and he would need to take on responsiblity for the child-pt discussed feeling terrifed that she has terminal illness and is here to begin to get help so he can provide stable parenting for his child. Pt restarted medications, titrated Latuda to 40 mg, Seroquel to 300 mg to assist with agitation and initiated Remeron 7.5 mg to assist with sleep quality. The mother of his child and his former employer made him an offer at the ending of the hospitalization to return to work, have an apartment supplied by his employer, and the child's mother would assist with transportation with the understanding pt would comply with out pt treatment and participate in addiction self-help. Pt accepted their offer and left the hospital early to begin work with the understanding that he would comply with out-patient treatment. His symptoms of agitation were present throughout the admission and did decrease with assistance in these three areas of his life. Time spent discussing smoking cessation with patient: 3 to 10 minutes Status at Discharge Cognitive/behavioral status at discharge: alert, oriented, denies SI, HI, no sx of psychosis, affect and mood constricted and apprehensive to begin these new opportunities offered to him. Functional status at discharge: independent ambulation Overall status at discharge: patient is progressing back to baseline Time Spent with Patient Time attestation: Total time spent providing and/or coordinating discharge services:35 Time spent: Greater than 30 minutes
== END 2020-12-04 12:30 | disposition home or self-care (01) | DRG 885 ==
LOC: HO.ED 09:27 → HO.PM5 11-28 13:40
PROVIDERS: Admitting Provider Psychiatry & Neurology Psychiatry; Emergency Provider Emergency Medicine; PCP Internal Medicine; Visit Provider Clinical Nurse Specialist Psychiatric/Mental Health, Adult
DX: F31.9 Bipolar disorder, unspecified (principal); R45.851 Suicidal ideations; Z20.822 Contact with and (suspected) exposure to COVID-19; F17.210 Nicotine dependence, cigarettes, uncomplicated; Z71.6 Tobacco abuse counseling; Z79.899 Other long term (current) drug therapy
CPT/HCPCS: 36415; 73030; 80048; 80061; 80076; 80307; 80320; 82607; 82746; 83036; 83735; 84439; 84443; 85025; 87635; 93005; 99285

== ENCOUNTER 2025-05-03 14:46 | Inpatient (IN) | payer MEDICARE, SELFPAY ==
[2025-05-03] VITALS (17 sets, daily range): BP systolic 107–160; BP diastolic 59–95; PULSE 70–101; RESP 12–26; TEMP 36.5; O2SAT 94–99; BMI 34.3
--- NOTE | ~2025-05-03 | CT_ITS ---
EXAMINATION: CT HEAD WITHOUT CONTRAST (STROKE PROTOCOL) CLINICAL INFORMATION: Dysarthria right hemibody weakness. COMPARISON: None available. TECHNIQUE: Contiguous axial imaging was performed from the skull base to vertex without intravenous administration of contrast. This CT examination was performed using dose optimization techniques as appropriate, variously including the following: *Automated exposure control *Adjustment of mA and/or kV according to patient size (this includes techniques or standardized protocols for targeted exams where dose is matched to indication/reason for exam; i.e. extremities or head) *Use of iterative reconstruction technique. DLP: 703 mg centimeter. FINDINGS: No acute intracranial hemorrhage, mass effect, midline shift, hydrocephalus or herniation. Bhat-white matter differentiation is normal. No increased density in the MCA. Posterior cranial fossa contents demonstrated no acute hemorrhage or gross mass effect. There is normal position of the cerebellar tonsils. No gross masses in the sellar/suprasellar region. The paranasal sinuses demonstrate no air-fluid levels. Tympanic cavities and mastoid cells are aerated. CT/CT head for STROKE IMPRESSION: No acute brain abnormality or acute hemorrhage. This critical result was discussed via tiger connect with emergency physician Dr. Antonio Steele at 3:00 PM hours on May 03, 2025. It was ascertained that the content and urgency of the report was understood at the time of direct communication. Electronically signed by: Hayden Murillo MD 05/03/2025 03:03 PM EDT
--- NOTE | ~2025-05-03 | XR_ITS ---
EXAMINATION: XR CHEST 1 VIEW HISTORY: Right-sided weakness, evaluate for pneumonia, COMPARISON: Comparison is made with the prior examination dated 10/23/2016. FINDINGS: A single AP portable view of the chest performed at 3:16 PM is submitted. There are low lung volumes. There are opacities in both upper lung zones which could represent pneumonia. Evaluation is limited by AP portable technique. There is no pleural effusion, pneumothorax, or pulmonary vascular congestion. The heart is normal in size. The bones are intact. XR/XR chest 1V IMPRESSION: Low lung volumes. Opacities in both upper lung zones which could represent pneumonia. PA and lateral views with improved inspiratory effort are recommended when the patient is able. Electronically signed by: Austin Ervin MD 05/03/2025 03:29 PM EDT
--- NOTE | ~2025-05-03 | MR_ITS ---
EXAMINATION: MR BRAIN WITHOUT IV CONTRAST HISTORY: CVA s/p TNK TECHNIQUE: Sagittal T1, and axial T1, FLAIR, T2, gradient echo, and diffusion weighted MR images of the brain were obtained. COMPARISON: Correlation is made with an unenhanced head CT dated 05/03/2025. FINDINGS: The pituitary is normal in size. The cerebellar tonsils are normally located. There are small foci of restricted diffusion in the left stone radiata and left basal ganglia, consistent with acute infarcts. This area is hyperintense on FLAIR and T2-weighted images. Bhat/white differentiation is normal. A few scattered punctate T2 hyperintensities are noted on the FLAIR and T2-weighted images, which are nonspecific, but often seen in the setting of small vessel ischemic disease. There is no mass effect or midline shift. No intra or extra-axial fluid collections are identified. Normal vascular flow voids are noted in the basilar and carotid arteries. The visualized paranasal sinuses are clear. MR/MR head/brain wo con IMPRESSION: Small acute infarcts in the left stone radiata and basal ganglia. Findings discussed with Dr. Miller via secure text message on 05/04/2025 at 4:02 PM. Electronically signed by: Austin Ervin MD 05/04/2025 04:03 PM EDT
--- NOTE | ~2025-05-03 | CT_ITS ---
EXAMINATION: CTA NECK WITH CONTRAST (STROKE) CTA BRAIN WITH CONTRAST (STROKE) CLINICAL INFORMATION: Suspect acute stroke. Assess for major vessel occlusion. Please call report. COMPARISON: CT brain without contrast performed earlier today. TECHNIQUE: CTA of the head and neck was performed in the axial plane from the mediastinum to the skull vertex using 70 mL Omnipaque 350 intravenous contrast. Additional reformatted multiplanar images including maximum intensity projection MIP images are generated on the CT workstation. This CT examination was performed using dose optimization techniques as appropriate, variously including the following: *Automated exposure control *Adjustment of mA and/or kV according to patient size (this includes techniques or standardized protocols for targeted exams where dose is matched to indication/reason for exam; i.e. extremities or head) *Use of iterative reconstruction technique FINDINGS: The degree of stenosis determined by criteria similar to NASCET. Brain: Postcontrast CT brain reveals no enhancing mass, edema or midline shift. The lateral ventricles are symmetrical and appear normal. There is symmetrical vascular distribution seen in both cerebral and cerebellar hemispheres. Chest CTA: The pulmonary artery and its bifurcation right and left pulmonary artery are normal. No intraluminal filling defect. The thoracic aorta is of normal caliber normal three-vessel branching. The origins are patent. The right brachiocephalic artery bifurcates normally into the right common carotid and subclavian artery. The origin of right vertebral artery of the subclavian is normal. The left common carotid and left subclavian arteries are widely patent. The right subclavian artery is of normal caliber Neck CTA: Bilateral common carotid artery, bulb and bifurcation into internal/external carotid arteries are widely patent. Both internal carotid arteries are patent throughout their course in the neck except for mild tortuosity and hair pin band in the distal segments. Both vertebral arteries are patent throughout the course of the neck with left vertebral artery slightly larger compared to the right side. Mild prominent bilateral tonsils is noted with mild concentric pharyngeal airway narrowing. No abnormal lymph nodes visualized Brain CTA: Vertebral arteries combine to form a widely patent basilar artery. The basilar artery bifurcates normally into bilateral posterior cerebral arteries. No aneurysm or dissection seen in the posterior circulation. Both internal carotid arteries are patent throughout the petrous, cavernous and supraclinoid ICA segments. Normal into anterior middle cerebral artery branches in middle cerebral arteries trifurcate normally in the sylvian fissure. Bone windows reveal no gross CT/CT angio head neck STROKE IMPRESSION: Unremarkable CTA neck. Unremarkable CTA brain. This critical test result is communicated to Dr. Josias Steele by phone in the ED at 3:40 PM. Electronically signed by: Oscar Beltran MD 05/03/2025 03:46 PM EDT
--- NOTE | ~2025-05-03 | CT_ITS ---
CLINICAL HISTORY: Recurrence of expressive aphasia and right-sided --- Additional Notes or Special Instructions: Weakness, patient received TNK rule out bleed CT head without contrast. COMPARISON: CT head dated 05/03/25 at 14:54 EDT FINDINGS: The visualized paranasal sinuses are clear. The mastoid air cells are clear. No calvarial fracture. No evidence for mass or mass effect. No intracranial hemorrhage or abnormal extra-axial fluid collection. No CT evidence of acute infarct. No evidence of hydrocephalus. The basilar cisterns are patent. Posterior fossa appears unremarkable. IMPRESSION: 1. No acute intracranial findings. This document has been electronically signed by: Charly Hung MD on 05/03/2025 17:55:21
--- NOTE | 2025-05-03 14:49 | ECG_ITS ---
Test Reason : STROKE Blood Pressure : */* mmHG Vent. Rate : 83 BPM Atrial Rate : 83 BPM P-R Int : 142 ms QRS Dur : 132 ms QT Int : 456 ms P-R-T Axes : 32 46 17 degrees QTcB Int : 535 ms Normal sinus rhythm with sinus arrhythmia Non-specific intra-ventricular conduction block Abnormal ECG When compared with ECG of 28-Nov-2020 09:16, Questionable change in QRS duration Referred By: Antonio Steele Electronically Signed By: Ciro Thurston
--- NOTE | 2025-05-03 14:49 | ED_ITS ---
HPI - Neuro Symptoms/Deficit General Chief Complaint: Stroke Stated Complaint: ?STROKE,DONNA R WEAK,SLURR,DROOP PER EMS Time Seen by Provider: 05/03/25 14:49 Source: patient and EMS Mode of arrival: EMS Limitations: no limitations History of Present Illness ED Provider: Dr. Antonio Steele HPI Narrative: 44-year-old male with a history of bipolar disorder, schizophrenia off medications for 1 year who presents emergency department for evaluation of sudden onset of right-sided hemiparalysis and dysarthric speech with last well- known time at 14:00 hours. The patient states that he went to visit his mother at [facility] in his taking the bus back to [facility]. He states that around 14:00 hours he noted numbness of the right side of his face, and right side of his body. He states the numbness resolved but then returned. He states that the bus ticket turning almost fell out of the seat because his right side was weak. When the patient got to a bus stop an ambulance was called and he was brought to emergency department for evaluation of possible stroke. On my evaluation the patient had right-sided facial droop with dysarthric speech and right paralysis of his arm and leg. Patient was weighed and then transferred to immediately to the CT scan. CT scan of the brain without IV contrast on my reading revealed no acute bleed, Dr. Rowan came to the emergency department and also read the CT scan is negative for bleed therefore the patient was given TNK while he was in CT. CT angiogram was then performed after TNK was given. The patient was then brought to room 2 and his symptoms completely resolved. Patient has no dysarthric speech and has full range of motion of his right side with no facial droop but no numbness. Related Data Home Medications ?Medication ?Instructions ?Recorded ?Confirmed No Known Home Meds 05/03/25 05/03/25 Allergies Allergy/AdvReac Type Severity Reaction Status Date / Time No Known Allergies (No Known Allergy Unverified 05/03/25 15:17 Allergies*) Review of Systems 2 Review of Systems: Yes all other systems are reviewed and are negative [facility] Past Medical History [facility] Narrative: Social history: The patient denies tobacco use. He states he occasionally drinks alcohol in the last drank 6 beers yesterday. Patient states that he smokes large marijuana blunts 6 times a day. Patient states that he has several social stressors including having to leave his apartment because he assuming his landlord and his mother being ill. Medical History Bipolar 1 disorder Schizophrenia Family History Family History Father Anxiety Mother Diabetes High blood pressure Social History Social History Household Members: Other Housing: Homeless Do you presently have visiting nurse or other home services: No Alcohol intake: current Alcohol intake frequency: holidays/special occasions only Cigarette Packs Per Day: 1 Cigarettes Per Day: 20.0 Years Smoked: since age 9 Second Hand Smoke Exposure: Yes Substance Use Type: Crack/Cocaine and Marijuana service: No Sexual orientation: Straight/Heterosexual Physical Exam 2 Vital Signs: Vital Signs: Last Vital Signs Temp 97.7 F 05/03/25 15:14 Pulse 81 05/03/25 15:30 Resp 21 H 05/03/25 15:30 BP 148/88 H 05/03/25 15:30 Pulse Ox 98 05/03/25 15:30 O2 Del Method Room Air 05/03/25 15:30 BMI result Body Mass Index 34.3 Vital signs revealed an elevated respiratory rate of 21 and elevated blood pressure of 148/88 Exam: General: Awake, alert, dysarthric but comprehensible speech Head: Normocephalic, atraumatic EENT: PERRL, Lids normal, sclera normal, conjunctiva normal, nose normal , ears normal, throat without erythema or exudates Neck: Supple, no adenopathy Lung: breath sounds symmetric, no wheezing, rales or rhonchi Chest: symmetric movement, nontender Heart: regular rate and rhythm, normal S1, S2 no murmurs or rubs Abdomen: soft, non-tender, nondistended, normal bowel sounds Back: no vertebral tenderness, no CVAT Extremities: no deformities, moves all extremities symmetrically Neuro: General: ?Awake, alert, oriented person, month and age, dysarthric, comprehensible speech Cranial nerves: ?Cranial nerves revealed a right facial droop Strength: Paralysis of the right upper and lower extremities Cerebellar: Initially unable to perform secondary to right-sided paralysis Psych: Pleasant, cooperative Medications Administered Generic Name Dose Route Start Last Admin Trade Name Freq PRN Reason Stop Dose Admin Sodium Chloride 1,000 mls @ 999 mls/hr 05/03/25 15:00 05/03/25 15:34 Ns IV 05/03/25 16:00 999 mls/hr .[id number] FLORENTIN Administration Discontinued Medications Generic Name Dose Route Start Last Admin Trade Name Freq PRN Reason Stop Dose Admin Iohexol 100 ml 05/03/25 15:15 05/03/25 15:16 Iohexol 350 Mg/Ml 100 Ml Infus..Btl IV 05/03/25 15:16 70 ml ONCE ONE Administration Tenecteplase 25 mg 05/03/25 14:52 05/03/25 15:05 Tenecteplase 50 Mg/10 Ml Kit IVPUSH 05/03/25 14:53 25 mg ONCE ONE Administration Medical Decision Making Medical Decision Making MDM Narrative: 44-year-old male with a history of bipolar disorder, schizophrenia off medications for 1 year who presents emergency department for evaluation of sudden onset of right-sided hemiparalysis and dysarthric speech with last well- known time at 14:00 hours. The patient states that he went to visit his mother at [facility] in his taking the bus back to [facility]. He states that around 14:00 hours he noted numbness of the right side of his face, and right side of his body. He states the numbness resolved but then returned. He states that the bus ticket turning almost fell out of the seat because his right side was weak. When the patient got to a bus stop an ambulance was called and he was brought to emergency department for evaluation of possible stroke. On my evaluation the patient had right-sided facial droop with dysarthric speech and right paralysis of his arm and leg. Patient was weighed and then transferred to immediately to the CT scan. CT scan of the brain without IV contrast on my reading revealed no acute bleed, Dr. Rowan came to the emergency department and also read the CT scan is negative for bleed therefore the patient was given TNK while he was in CT. CT angiogram was then performed after TNK was given. The patient was then brought to room 2 and his symptoms completely resolved. Patient has no dysarthric speech and has full range of motion of his right side with no facial droop but no numbness. Differential diagnosis: ?Includes but is not limited to stroke, tumor, mass effect, intracranial bleed, anemia, electrolyte abnormalities Course: 15:54 My independent interpretation patient's laboratory evaluation is as follows: WBC elevated 13,700-appears to be chronic. Normocytic anemia with an H&H of 13.9 and 39.9-chronic. Platelet count was normal 363,000. Coags normal. Glucose elevated 121. LFTs were normal. Triglycerides slightly elevated 164. Total cholesterol elevated 214. LDH elevated 128. HDL elevated 54. CT scan of the brain revealed no acute bleed or stroke. CT angiogram head and neck revealed no acute findings. 16:02 I did discuss the patient's presentation over tiger text with the covering ship captain, Dr. Miller and the patient will be admitted to the intensive care unit for further management of his stroke and TNK treatment. Admission/Observation Consideration of admission/observation: Escalation of care including admission/observation considered (Yes) Consult Healthcare Provider Management of the patient was discussed with: [employer] Production Technician (Full Stack Developer, Dr. Miller and neurologist, Dr. Rowan) Lab Data MDM Lab Attestation statement: I reviewed the patient's lab results. 05/03/25 15:08 05/03/25 15:08 Labs: Lab Results 05/03/25 05/03/25 Range/Units 14:54 15:08 WBC 13.7 H (4.8-10.8) X10*3/uL RBC 4.56 L (4.60-5.80) X10*6/uL Hgb 13.9 L (14.0-18.0) g/dl Hct 39.9 L (42.0-52.0) % MCV 87.5 (80.0-98.0) fL MCH 30.5 (27.0-33.0) pg MCHC 34.8 (31.0-36.0) g/dl RDW 14.1 (11.0-16.0) % Plt Count 363 (160-400) X10*3/uL MPV 9.0 L (9.4-12.4) fL Immature Gran % (Auto) 0.3 (0.0-0.4) % Neut % (Auto) 67.0 (45-73) % Lymph % (Auto) 25.5 (20-40) % [place] % (Auto) 6.7 (2-11) % Eos % (Auto) 0.3 (0-4) % Baso % (Auto) 0.2 (0-2) % Lymph # (Auto) 3.5 (1.2-4.9) X10*3/uL [place] # (Auto) 0.9 (0.1-1.2) X10*3/uL Eos # (Auto) 0.0 (0.0-0.4) X10*3/uL Baso # (Auto) 0.0 (0.0-0.2) X10*3/uL Abs Immat Gran (auto) 0.04 H (0.00-0.03) X10*3/uL Absolute Neuts (auto) 9.2 H (2.0-8.3) x10*3/uL Absolute Nucleated RBC 0.000 (0.0-0.012) X10*3/uL Nucleated RBC % (auto) 0.0 (0.0-0.2) /100WBC PT 10.5 L (10.9-12.4) SEC Whole Blood PT 13.1 (11.1-13.5) sec INR 0.9 (0.9-1.1) Whole Blood INR 1.1 (0.9-1.1) APTT 26.9 (26.7-34.1) SEC Sodium 138 (135-145) mmol/L Potassium 3.6 (3.3-5.1) mmol/L Chloride 105 (96-108) mmol/L Carbon Dioxide 22 (22-29) mmol/L Anion Gap 15 (12-20) BUN 12 (9-16) mg/dL Creatinine 0.76 (0.5-1.4) mg/dL Estim Creat Clear Calc 139.2 Estimated GFR > 60 POC Glucose 132 H (60-115) mg/dL Random Glucose 121 H (60-115) mg/dL Calcium 8.9 (8.4-10.2) mg/dL Total Bilirubin 0.4 (0.0-1.0) mg/dL Direct Bilirubin 0.2 (0.0-0.5) mg/dL AST 20 (5-37) U/L ALT 16 (0-40) U/L Alkaline Phosphatase 66 (39-117) U/L Total Protein 6.9 (6.5-8.0) g/dL Albumin 4.4 (3.5-5.0) g/dL Triglycerides 164 H (<150) mg/dL Cholesterol 214 H (<200) mg/dL LDL Cholesterol, Calc 128 H (<100) mg/dL HDL Cholesterol 54 (>40) mg/dL Independent Interpretation I performed an independent interpretation of an: EKG Interpretation: My independent interpretation patient's 12 EKG is as follows, normal sinus rhythm with a rate of 83, normal AR interval, prolonged QRS of 132 milliseconds, prolonged QTC of 535 milliseconds, nonspecific intraventricular conduction delay, no ST segment elevation, no ST segment depression, no PACs, no PVCs, no significant T-wave abnormalities. Radiology Impression Discussion of test interpretation with radiology: I have reviewed the radiologist's reading. Radiologist Impression: CT head for STROKE IMPRESSION: No acute brain abnormality or acute hemorrhage. This critical result was discussed via tiger connect with emergency physician Dr. Antonio Steele at 3:00 PM hours on May 03, 2025. It was ascertained that the content and urgency of the report was understood at the time of direct communication. Electronically signed by: Hayden Murillo MD 05/03/2025 03:[address] angio head neck STROKE IMPRESSION: Unremarkable CTA neck. Unremarkable CTA brain. This critical test result is communicated to Dr. Josias Steele by phone in the ED at 3:40 PM. Electronically signed by: Oscar Beltran MD 05/03/2025 03:46 PM EDT Independent Historian Clinical information obtained from an independent historian. History obtained from or confirmed by: EMS Chronic Conditions Patient?s care impacted by: Other (Bipolar disorder) NIH Stroke Scale Internal: Initial- Upon Arrival Level of Consciousness: Alert Level of Consciousness Questions: Answers both questions correctly Level of Consciousness Commands: Performs both tasks correctly Best Gaze: Normal Visual: No visual loss Critical Care Time Critical Care Time Critical Care Time: Yes Total Critical Care Time: 55 Attestation: Critical Care: The patient was critically ill with a high probability of imminent or life threatening deterioration. I spent greater than 30 minutes of discontinuous time evaluating the patient,delivering critical care at the bedside, discussing and evaluating pertinent data with consultants. Critical care time does not include time spent performing separately billable procedures or teaching. Total time spent performing critical care was 55 minutes. Discharge Plan Discharge Patient Disposition: Admitted As Inpatient Print Language: Tristanian
[2025-05-03 15:03] LABS: Prothrombin Time Whole Bld POC 13.1 sec (11.1-13.5); ~PT, ~INR - Anti Coag Clinic 1.1 (0.9-1.1)
[2025-05-03 15:05] LABS: Glucose, Whole Blood 132 mg/dL (60-115)
[2025-05-03 15:12] LABS: MANUAL DIFF FLAG NO
[2025-05-03 15:13] LABS: Hematocrit 39.9 % (42.0-52.0); Hemoglobin 13.9 g/dl (14.0-18.0); Imm Gran Abs Auto 0.04 X10*3/uL (0.00-0.03); Imm Gran Pct Auto 0.3 % (0.0-0.4); Lymphocytes Absolute Auto 3.5 X10*3/uL (1.2-4.9); Mean Corpuscular HGB Conc 34.8 g/dl (31.0-36.0); Mean Corpuscular Hemoglobin 30.5 pg (27.0-33.0); Mean Corpuscular Volume 87.5 fL (80.0-98.0); NRBC Abs Auto 0.000 X10*3/uL (0.0-0.012); NRBC Pct Auto 0.0 /100WBC (0.0-0.2); Platelet Count 363 X10*3/uL (160-400); Red Blood Count 4.56 X10*6/uL (4.60-5.80); White Blood Count 13.7 X10*3/uL (4.8-10.8)
[2025-05-03] MEDS: iohexoL 350 MG/ML 100 ML INFUS..BTL IV (15:16)
[2025-05-03 15:18] LABS: INTERNATIONAL NORM RATIO 0.9 (0.9-1.1); Prothrombin Time 10.5 SEC (10.9-12.4)
[2025-05-03 15:20] LABS: Partial Thromboplastin Time 26.9 SEC (26.7-34.1)
[2025-05-03 15:22] LABS: Stroke Lab Use COMPLETE
--- NOTE | 2025-05-03 15:26 | MHC.STROKE ---
Stroke Alert in the ED Pt evaluated at the door by provider and went directly to CT Pt with sudden onset right sided weakness - upper and lower extremity and slurred speech. LKWT 2pm Dr. Rowan to CT for evaluation. Decision was made to give TNK. Dose per protocol. Pt educated on Stroke protocol. Stroke Education provided - pamphlet given. Will continue to assist as needed.
[2025-05-03 15:29] LABS: Alanine Aminotransferase 16 U/L (0-40); Albumin Level 4.4 g/dL (3.5-5.0); Alkaline Phosphatase 66 U/L (39-117); Anion Gap 15 (12-20); Aspartate Amino Transferase 20 U/L (5-37); Blood Urea Nitrogen 12 mg/dL (9-16); Calcium 8.9 mg/dL (8.4-10.2); Carbon Dioxide 22 mmol/L (22-29); Chloride 105 mmol/L (96-108); Cholesterol 214 mg/dL (<200); Creatinine Clr Calc Pharmacy 139.2; Estimated Glomerular Filt Rate > 60; HDL Cholesterol 54 mg/dL (>40); Potassium 3.6 mmol/L (3.3-5.1); Sodium 138 mmol/L (135-145); Total Protein 6.9 g/dL (6.5-8.0); Triglycerides 164 mg/dL (<150)
[2025-05-03 15:36] LABS: Troponin-I High Sensitivity < 2.7 ng/L (<3.5-35.0)
--- NOTE | 2025-05-03 15:55 | PC.NURSE ---
Pt comes to ED via EMS as a stroke alert. Per EMS: [place] bus [place] with c/o sudden onset R upper and lower limb flaccidity, slurred speech, and R facial droop. Pt A&Ox3 on arrival to scene, VSS Pt reports family Hx stroke On arrival Pt evaluated on stretcher by Dr. Steele and sent to CT for emergent for imaging. RN stroke educator at bedside Following dry first CT imagine, verbal orders given by Dr. Steele to give TNK. TNK given at 1505. Upon completion of imaging Pt proceeds to ED 2 and remains under direct video effects editor. VS [id number] with neuro checks. 1535: Pt alerts this RN that he is now able to perform ROMs of RUE and RLE Speech is now clear No facial droop noted. Dr. Mayorga and RN stroke educator alerted and both come to bedside for eval. VS continue to remain stable and neuro checks are unremarkable. Pt will remain on Q15min VS until 1700. Pt will be admitted and transported to ICU when room available.
--- NOTE | 2025-05-03 15:57 | MHC.STROKE ---
1535- Pt with complete resolution of symptoms. Pt speaking in full clear sentences, moving all extremities. Provider and neurology aware
--- NOTE | 2025-05-03 16:43 | PHA.MEDREC ---
Addendum entered by Caterina Knott RPh 05/03/25 16:48: reviewed by [facility]. Original Note: Pharmacy Consult ? Medication Reconciliation Pharmacy has reviewed the medication reconciliation done by nursing. Patient states he is taking Quetiapine 50 mg Qam, Quetiapine 100 mg Daily, Quetiapine 300 mg Qpm, and Zolpedem 10 mg, however there is no claim history. Patient states he hasn't been able to pick them up from his pharmacy due to his insurance. Patient states he hasn't had any of his medication in over a year. Left off med list.
[2025-05-03 16:53] LABS: Cannabinoid Screen Urine POSITIVE (Not Detect)
--- NOTE | 2025-05-03 16:56 | PC.NURSE ---
1654: Pt presents with sudden onset of flaccidity to R arm and R L as well as inability to formulate words. Pt is A&Ox3 and can shake head yes and no to answer questions. Dr. Steele called to bedside urgently for eval. Pt will be brought urgently for CT.
[2025-05-03 16:57] LABS: Glucose, Whole Blood 94 mg/dL (60-115)
--- NOTE | 2025-05-03 17:09 | PC.NURSE ---
1703: While on CT table, Pt reports return of ability to move R arm and leg. Pt demonstrates ability to life R leg and move R arm Speech is clear at this time. Pt proceeds with imaging.
--- NOTE | 2025-05-03 17:39 | PC.NURSE ---
Pt to be transferred to ICU for continued care RN to RN report completed with MOISES Maravilla. Pt escorted to ICU by this RN and RN Stroke Educator. Care of Pt relinquished to MOISES Maravilla at 1727.
--- NOTE | 2025-05-03 19:11 | P.HPCC_ITS ---
History of Present Illness Date of Service: 05/04/25 Chief Complaint: Right-sided hemiplegia 45-year-old gentleman with underlying bipolar disorder, schizophrenia off medications presented complaining of an acute offset of right-sided weakness with difficulty speaking. On ER evaluation CT head with no acute findings. Patient administered TNK and admitted to intensive care unit for close monitoring. Had/neck imaging with no large vessel obstruction. Review of Systems 2 Constitutional: Constitutional: Denies daytime sleepiness, Denies excessive sweating, Denies fatigue, Denies fever(s), Denies lethargy, Denies malaise, Denies night sweats, Denies snoring and Denies weight loss Eyes: Eyes: Denies blurry vision and Denies itchy eyes ENT: Denies nasal congestion, Denies post nasal drip, Denies sinus pain, Denies sinus pressure and Denies other ( Thrush) Cardiovascular: Cardiovascular: Denies chest pain, Denies pedal edema, Denies dyspnea, Denies orthopnea and Denies paroxysmal nocturnal dyspnea Respiratory: Respiratory: Denies cough, Denies hemoptysis, Denies excessive phlegm production, Denies dyspnea, Denies snoring and Denies wheezing Gastrointestinal: Gastrointestinal: Denies abdominal pain and Denies heartburn Musculoskeletal: Musculoskeletal: Denies myalgias, Denies arthralgias and Denies joint swelling Integumentary/Breasts: Skin/Breast: Denies rash Neurologic: Reports focal weakness Psychiatric: Psychiatric: Denies abnormal sleep pattern and Denies anxiety Endocrine: Endocrine: Denies excessive sweating, Denies fatigue and Denies heat intolerance Hematologic/Lymphatic: Hematologic/Lymphatic: Denies easy bruising Allergic/Immunologic: Allergic/Immunologic: Denies itchy eyes, Denies seasonal rhinorrhea and Denies wheezing PMFSH Past Medical History Medical History Bipolar 1 disorder Schizophrenia Family History Family History Father Anxiety Mother Diabetes High blood pressure Social History Social History Household Members: None Housing: Apartment Do you presently have visiting nurse or other home services: No Alcohol intake: current Alcohol intake frequency: holidays/special occasions only Patient Tobacco Use Status: Never used Tobacco Cigarette Packs Per Day: 1 Cigarettes Per Day: 20.0 Years Smoked: since age 9 Smoked in Last 30 Days: No Second Hand Smoke Exposure: Yes Use of substances other than those prescribed or required for medical reasons: No Substance Use Type: Crack/Cocaine and Marijuana Currently Displaying Signs/Symptoms of Drug Intoxication Withdrawal: No Have you been hit, kicked, punched, or otherwise hurt by someone within the past year? If so, by whom?: No Advance Directives: No Advance Directives Information Provided: Yes Do you have a plan to hurt others: No Plan Nutrition Risks: No Nutritional Risk Poor oral hygiene: No service: No Sexual orientation: Straight/Heterosexual Meds Allergies Allergy/AdvReac Type Severity Reaction Status Date / Time No Known Allergies (No Known Allergy Unverified 05/03/25 15:17 Allergies*) Active Medications: Current Medications Sodium Chloride (0.9 % Sodium Chloride Flush 3 Ml Syringe) 3 ml IVFLUSH QSHIFT [facility] Home Medications ?Medication ?Instructions ?Recorded ?Confirmed ?Last Taken ?Type No Known Home Meds 05/03/25 05/03/25 Un known History Physical Exam 2 Vital Signs: Vital Signs: Last Vital Signs Temp 97.7 F 05/03/25 15:14 Pulse 77 05/03/25 19:00 Resp 12 05/03/25 19:00 BP 131/61 05/03/25 19:00 Pulse Ox 96 05/03/25 19:00 O2 Del Method Room Air 05/03/25 19:00 BMI result Body Mass Index 34.3 Const: General: no acute distress and alert Nutritional Appearance: not obese Orientation/consciousness: Other orientation findings ( oriented) HEENT: Head: Yes atraumatic Eyes: General: appearance normal, both eyes and all related structures S clerae: sclerae normal EOM: EOMs intact bilaterally Neck: Neck: Yes supple Lymphatic: no lymphadenopathy noted Resp: Effort & Inspection: normal respiratory effort and no use of accessory muscles Auscultation: clear to auscultation bilaterally Cardio: Rate: regular rate Rhythm: regular rhythm Heart sounds: no gallops, no murmurs and no rubs GI: Palpation (GI): Soft to palpation and Other GI palpation findings present ( Nontender) Auscultation: normal bowel sounds Skin: General skin exam: other ( warm) Neuro: Other: Essentially normal neurological exam. Extrem: General: No clubbing, No cyanosis and No edema Results Labs 05/04/25 04:30 05/04/25 04:30 Labs: Laboratory Results - last 24 hr 05/03/25 05/03/25 05/03/25 14:54 15:08 16:25 MCV 87.5 MCH 30.5 MCHC 34.8 RDW 14.1 Plt Count 363 MPV 9.0 L Immature Gran % (Auto) 0.3 Neut % (Auto) 67.0 Lymph % (Auto) 25.5 [place] % (Auto) 6.7 Eos % (Auto) 0.3 Baso % (Auto) 0.2 Lymph # (Auto) 3.5 [place] # (Auto) 0.9 Eos # (Auto) 0.0 Baso # (Auto) 0.0 Abs Immat Gran (auto) 0.04 H Absolute Neuts (auto) 9.2 H Absolute Nucleated RBC 0.000 Nucleated RBC % (auto) 0.0 PT 10.5 L Whole Blood PT 13.1 INR 0.9 Whole Blood INR 1.1 APTT 26.9 Anion Gap 15 Estim Creat Clear Calc 139.2 Estimated GFR > 60 POC Glucose 132 H Random Glucose 121 H Calcium 8.9 Total Bilirubin 0.4 Direct Bilirubin 0.2 AST 20 ALT 16 Alkaline Phosphatase 66 Total Protein 6.9 Albumin 4.4 Triglycerides 164 H Cholesterol 214 H LDL Cholesterol, Calc 128 H HDL Cholesterol 54 Urine Opiates Screen Not Detected Ur Buprenorphine Scrn Not Detected Ur Oxycodone Screen Not Detected Urine Methadone Screen Not Detected Urine Fentanyl Screen Not Detected Ur Barbiturates Screen Not Detected Ur Phencyclidine Scrn Not Detected Ur Amphetamines Screen Not Detected U Benzodiazepines Scrn Not Detected Urine Cocaine Screen Not Detected U Marijuana (THC) Screen POSITIVE H 05/03/25 16:51 MCV MCH MCHC RDW Plt Count MPV Immature Gran % (Auto) Neut % (Auto) Lymph % (Auto) [place] % (Auto) Eos % (Auto) Baso % (Auto) Lymph # (Auto) [place] # (Auto) Eos # (Auto) Baso # (Auto) Abs Immat Gran (auto) Absolute Neuts (auto) Absolute Nucleated RBC Nucleated RBC % (auto) PT Whole Blood PT INR Whole Blood INR APTT Anion Gap Estim Creat Clear Calc Estimated GFR POC Glucose 94 Random Glucose Calcium Total Bilirubin Direct Bilirubin AST ALT Alkaline Phosphatase Total Protein Albumin Triglycerides Cholesterol LDL Cholesterol, Calc HDL Cholesterol Urine Opiates Screen Ur Buprenorphine Scrn Ur Oxycodone Screen Urine Methadone Screen Urine Fentanyl Screen Ur Barbiturates Screen Ur Phencyclidine Scrn Ur Amphetamines Screen U Benzodiazepines Scrn Urine Cocaine Screen U Marijuana (THC) Screen Imaging Radiologist's Impressions: Impressions Head CT 05/03/25 13:54 IMPRESSION: No acute brain abnormality or acute hemorrhage. This critical result was discussed via tiger connect with emergency physician Dr. Antonio Steele at 3:00 PM hours on May 03, 2025. It was ascertained that the content and urgency of the report was understood at the time of direct communication. Electronically signed by: Hayden Murillo MD 05/03/2025 03:03 PM EDT RP Chest X-Ray 05/03/25 14:16 IMPRESSION: Low lung volumes. Opacities in both upper lung zones which could represent pneumonia. PA and lateral views with improved inspiratory effort are recommended when the patient is able. Electronically signed by: Austin Ervin MD 05/03/2025 03:29 PM EDT RP Head/Neck CTA 05/03/25 14:59 IMPRESSION: Unremarkable CTA neck. Unremarkable CTA brain. This critical test result is communicated to Dr. Josias Steele by phone in the ED at 3:40 PM. Electronically signed by: Oscar Beltran MD 05/03/2025 03:46 PM EDT RP Assessment and Plan (1) Polysubstance abuse: Status: Acute (2) Bipolar 1 disorder: Status: Acute (3) Stroke: Status: Acute Plan Assessment: 45-year-old gentleman with underlying bipolar disorder and schizophrenia off medications, substance abuse admitted with stroke-like symptoms, now status post TNK with resolution of symptoms. Plan: Neuro: Stroke-like symptoms with resolution after TNK. MRI brain is pending. Neurology consultation is pending. PT/OT. Cardiac: No acute issues. Pulmonary: No acute issues. Renal: No acute issues. Endo: No acute issues. GI: No acute issues. ID: No acute issues Heme/Onc: No acute issues. Psych: Underlying bipolar/schizophrenia. Miscellaneous: No acute issues. Prophylaxis: Pneumatic compression Diet: Cardiac
[2025-05-03] MEDS: 0.9 % Sodium Chloride Flush 3 ML SYRINGE IVFLUSH (23:21)
[2025-05-04] VITALS (15 sets, daily range): BP systolic 111–144; BP diastolic 65–90; PULSE 61–78; RESP 12–31; TEMP 36.1–36.7; O2SAT 95–100; BMI 34.0
[2025-05-04 04:57] LABS: MANUAL DIFF FLAG NO
[2025-05-04 04:59] LABS: Hematocrit 39.8 % (42.0-52.0); Hemoglobin 13.9 g/dl (14.0-18.0); Imm Gran Abs Auto 0.07 X10*3/uL (0.00-0.03); Imm Gran Pct Auto 0.5 % (0.0-0.4); Lymphocytes Absolute Auto 3.0 X10*3/uL (1.2-4.9); Mean Corpuscular HGB Conc 34.9 g/dl (31.0-36.0); Mean Corpuscular Hemoglobin 30.6 pg (27.0-33.0); Mean Corpuscular Volume 87.7 fL (80.0-98.0); NRBC Abs Auto 0.000 X10*3/uL (0.0-0.012); NRBC Pct Auto 0.0 /100WBC (0.0-0.2); Platelet Count 338 X10*3/uL (160-400); Red Blood Count 4.54 X10*6/uL (4.60-5.80); White Blood Count 12.9 X10*3/uL (4.8-10.8)
[2025-05-04 05:16] LABS: Anion Gap 12 (12-20); Blood Urea Nitrogen 11 mg/dL (9-16); Calcium 8.4 mg/dL (8.4-10.2); Carbon Dioxide 25 mmol/L (22-29); Chloride 104 mmol/L (96-108); Cholesterol 200 mg/dL (<200); Creatinine Clr Calc Pharmacy 141.1; Estimated Glomerular Filt Rate > 60; HDL Cholesterol 50 mg/dL (>40); Magnesium 2.0 mg/dL (1.6-2.6); Potassium 3.4 mmol/L (3.3-5.1); Sodium 138 mmol/L (135-145); Triglycerides 168 mg/dL (<150)
--- NOTE | 2025-05-04 07:00 | CA_ITS ---
Transthoracic Echocardiogram Patient (Last, First, Middle): Stephan Johnson, Gender: Male Date of : 1980 Age: 45 Procedure Date: 05/04/2025 Procedure Type: Transthoracic Echocardiogram Location: ICU Height: 172.72 cm Weight: 101.15 kg BSA: 2.14 m2 Heart Rate: 74 bpm BP: 121 / 79 mmHg Cuff Stitcher: SB Referring MD: Brock Miller MD Symptoms: CVA s/p TNK Study Quality: Adequate w/Contrast ECG Rhythm: Sinus Conclusions: - Normal left ventricular size, thickness, systolic function, and wall motion. The visually estimated ejection fraction is between 55-60%. Diastolic function is normal for age. - Normal right ventricular cavity size and systolic function. - There is no evidence of interatrial shunt by agitated saline. - There is mild dilatation of the sinuses of Valsalva measuring 3.80 cm and mild dilatation of the ascending aorta measuring 3.40 cm. Findings Procedure Information Contrast agent, definity, is being given per protocol without apparent complications. Left Ventricle Normal left ventricular size, thickness, systolic function, and wall motion. The visually estimated ejection fraction is between 55-60%. Diastolic function is normal for age. Right Ventricle Normal right ventricular cavity size and systolic function. Atria The left atrium is normal in size. There is no evidence of interatrial shunt by agitated saline. The right atrium is normal in size. Aortic Valve Normal aortic valve structure and function. There is no aortic valve stenosis. There is no aortic valve regurgitation. Mitral Valve Normal mitral valve structure and function. There is no mitral valve regurgitation. There is no mitral valve stenosis. Pulmonic Valve The pulmonic valve is normal. There is no pulmonic valve regurgitation. Tricuspid Valve Normal tricuspid valve structure. There is no tricuspid valve regurgitation. Tricuspid regurgitation envelope is inadequate for calculation of right ventricular systolic pressure. Normal right atrial pressure. Great Vessels There is mild dilatation of the sinuses of Valsalva measuring 3.80 cm and mild dilatation of the ascending aorta measuring 3.40 cm. The visualized portions of the pulmonary artery and branches are normal. Venous The inferior vena cava is normal in size and collapses greater than 50% with inspiration. Pericardium/Pleural There is no evidence of pericardial effusion. Prior Study Comparison No prior study available for comparison. Measurements 2D Linear Measurements IVSd: 1.15 0.6-0.9/0.6-1.0 cm LVIDd: 5.04 3.9-5.3/4.2-5.9 cm LVIDd Index: 2.36 2.4-3.2/2.2-3.1 cm/m2 LVIDs: 3.17 2.0-3.6 cm LVPWd: 1.01 0.7-1.1 cm LA Diam: 3.40 2.7-3.8/3.0-4.0 cm LAIDs Index: 1.59 1.5-2.3 cm/m2 LV Mass: 255.03 67-162/88-224 g LV Mass Index: 119.17 43-95/49-115 g/m2 LVOT Diam: 2.50 3.0+(-)1.3 cm 2D Systolic Function EF 4C: 56.10 >55% EF 2C: 50.60 >55% EF BiP: 55.00 >55% Mitral Valve MV Pk E: 0.59 MV PK A: 0.57 MV Decel Time: 243.00 E/A: 1.00 E'Lateral: 8.38 E'Medial: 5.22 E/E' Med: 11.30 E/E' Lat: 7.10 PHT: 71.00 MVA PHT: 3.10 Decel [place]: 2.43 Aortic Valve AoV Pk Brian: 1.12 AoV Mn Brian: 0.71 AoV VTI: 0.19 AoV Pk Grad: 5.00 Aov Mn Grad: 3.00 JOSE Cont.VTI: 5.39 LVOT LVOT Pk Brian: 1.20 LVOT Mn Brian: 0.88 LVOT VTI: 0.20 LVOT Pk Grad: 6.00 LVOT Mn Grad: 4.00 LVOT Diam: 2.50 LVOT Area: 4.91 Diastolic Function MV Pk E: 0.59 MV Pk A: 0.57 E/A: 1.00 E'Medial: 5.22 E/E' Med: 11.30 E' Laterial: 8.38 E/E' Lat: 7.10 Right Ventricle TAPSE (mm): 24.40 TVS' Brian: 20.70 Great Vessels Aorta Sinus of Valsalva: 3.80 2.0-3.5 cm Ao Asc: 3.40 2.1-3.4 cm Pulmonary Veins Pulm Vein S/D 1.80 Pulmonary Valve PV Pk Brian: 0.92 Peak PV Grad: 3.00 Updated in Other Vendor System with Status of Final Ciro Thurston MD electronically signed on 05/04/2025 3:35:58 PM with status of Final
--- NOTE | 2025-05-04 07:03 | PC.NURSE ---
Assumed care of patient at 2300 Neuro?s every hour, negative since 2299, headache that was noted no longer present, stroke symptoms continue to be absent, denies pain or discomfort, voiding clear urine in urinal at bedside, patient repositions self, stand by assist for urining
[2025-05-04 07:20] LABS: Glucose, Whole Blood 99 mg/dL (60-115)
[2025-05-04] MEDS: 0.9 % Sodium Chloride Flush 3 ML SYRINGE IVFLUSH ×3 (07:34→21:02)
[2025-05-04] MEDS: Potassium Chloride Packet 20 MEQ PACKET 40 MEQ PO (07:34)
--- NOTE | 2025-05-04 08:28 | MHC.SLORD ---
Speech Language Pathology Order Status: Speech order to be cancelled. Patient is s/p TNK administration w/ complete resolution of symptoms. Discussed w/ Dr. Miller. Patient passed RN swallow screen and is ordered regular [place] diet. CONSUMER INSIGHT MANAGER consult no longer needed per Dr. Miller. Please re-refer if needed.
--- NOTE | 2025-05-04 08:55 | P.PNCC_ITS ---
Subjective Subjective Date of Service: 05/04/25 Interval History: 45-year-old gentleman with underlying bipolar disorder, schizophrenia off medications presented complaining of an acute offset of right-sided weakness with difficulty speaking. On ER evaluation CT head with no acute findings. Patient administered TNK and admitted to intensive care unit for close monitoring. Head/neck imaging with no large vessel obstruction. No events overnight. Critical Care Time (minutes): 0 Physical Exam 2 Vital Signs: Vital Signs: Last Vital Signs Temp 97.0 F 05/04/25 08:00 Pulse 77 05/04/25 08:00 Resp 21 H 05/04/25 08:00 BP 119/84 05/04/25 08:00 Pulse Ox 96 05/04/25 08:00 O2 Del Method Room Air 05/04/25 08:00 BMI result Body Mass Index 34.0 Const: General: no acute distress, alert and awake Eyes: Sclerae: sclerae normal EOM: EOMs intact bilaterally Neck: Neck: Yes no lymphadenopathy, Yes trachea midline and Yes supple Resp: Effort & Inspection: normal respiratory effort and no respiratory distress Auscultation: clear to auscultation bilaterally Cardio: Rate: regular rate Rhythm: regular rhythm Heart sounds: no gallops, no murmurs and no rubs GI: Palpation (GI): Soft to palpation and Other GI palpation findings present ( Nontender) Auscultation: normal bowel sounds Neuro: Other: Normal neurologic exam Extrem: General: Yes no pedal edema, No clubbing and No cyanosis Objective Data Labs 05/04/25 04:30 05/04/25 04:30 Labs: Laboratory Results - last 24 hr 05/03/25 05/03/25 05/03/25 14:54 15:08 16:25 WBC 13.7 H RBC 4.56 L Hgb 13.9 L Hct 39.9 L MCV 87.5 MCH 30.5 MCHC 34.8 RDW 14.1 Plt Count 363 MPV 9.0 L Immature Gran % (Auto) 0.3 Neut % (Auto) 67.0 Lymph % (Auto) 25.5 [place] % (Auto) 6.7 Eos % (Auto) 0.3 Baso % (Auto) 0.2 Lymph # (Auto) 3.5 [place] # (Auto) 0.9 Eos # (Auto) 0.0 Baso # (Auto) 0.0 Abs Immat Gran (auto) 0.04 H Absolute Neuts (auto) 9.2 H Absolute Nucleated RBC 0.000 Nucleated RBC % (auto) 0.0 PT 10.5 L Whole Blood PT 13.1 INR 0.9 Whole Blood INR 1.1 APTT 26.9 Sodium 138 Potassium 3.6 Chloride 105 Carbon Dioxide 22 Anion Gap 15 BUN 12 Creatinine 0.76 Estim Creat Clear Calc 139.2 Estimated GFR > 60 POC Glucose 132 H Random Glucose 121 H Calcium 8.9 Phosphorus Magnesium Total Bilirubin 0.4 Direct Bilirubin 0.2 AST 20 ALT 16 Alkaline Phosphatase 66 Troponin I High Sens < 2.7 Total Protein 6.9 Albumin 4.4 Triglycerides 164 H Cholesterol 214 H LDL Cholesterol, Calc 128 H HDL Cholesterol 54 Urine Opiates Screen Not Detected Ur Buprenorphine Scrn Not Detected Ur Oxycodone Screen Not Detected Urine Methadone Screen Not Detected Urine Fentanyl Screen Not Detected Ur Barbiturates Screen Not Detected Ur Phencyclidine Scrn Not Detected Ur Amphetamines Screen Not Detected U Benzodiazepines Scrn Not Detected Urine Cocaine Screen Not Detected U Marijuana (THC) Screen POSITIVE H 05/03/25 05/04/25 05/04/25 16:51 04:30 07:15 WBC 12.9 H RBC 4.54 L Hgb 13.9 L Hct 39.8 L MCV 87.7 MCH 30.6 MCHC 34.9 RDW 14.0 Plt Count 338 MPV 9.1 L Immature Gran % (Auto) 0.5 H Neut % (Auto) 67.0 Lymph % (Auto) 23.6 [place] % (Auto) 7.8 Eos % (Auto) 0.9 Baso % (Auto) 0.2 Lymph # (Auto) 3.0 [place] # (Auto) 1.0 Eos # (Auto) 0.1 Baso # (Auto) 0.0 Abs Immat Gran (auto) 0.07 H Absolute Neuts (auto) 8.6 H Absolute Nucleated RBC 0.000 Nucleated RBC % (auto) 0.0 PT Whole Blood PT INR Whole Blood INR APTT Sodium 138 Potassium 3.4 Chloride 104 Carbon Dioxide 25 Anion Gap 12 BUN 11 Creatinine 0.75 Estim Creat Clear Calc 141.1 Estimated GFR > 60 POC Glucose 94 99 Random Glucose 92 Calcium 8.4 Phosphorus 3.4 Magnesium 2.0 Total Bilirubin Direct Bilirubin AST ALT Alkaline Phosphatase Troponin I High Sens Total Protein Albumin Triglycerides 168 H Cholesterol 200 H LDL Cholesterol, Calc 117 H HDL Cholesterol 50 Urine Opiates Screen Ur Buprenorphine Scrn Ur Oxycodone Screen Urine Methadone Screen Urine Fentanyl Screen Ur Barbiturates Screen Ur Phencyclidine Scrn Ur Amphetamines Screen U Benzodiazepines Scrn Urine Cocaine Screen U Marijuana (THC) Screen Progress Note: A&P Assessment and plan (1) Bipolar 1 disorder: Status: Acute (2) Polysubstance abuse: Status: Acute (3) Stroke: Status: Acute Plan Assessment: 45-year-old gentleman with underlying bipolar disorder and schizophrenia off medications, substance abuse admitted with stroke-like symptoms, now status post TNK with resolution of symptoms. Plan: Neuro: Stroke-like symptoms with resolution after TNK. MRI brain is pending. Neurology consultation is pending. PT/OT. Cardiac: No acute issues. 2D echo is pending. Pulmonary: No acute issues. Renal: No acute issues. Endo: No acute issues. GI: No acute issues. ID: No acute issues Heme/Onc: No acute issues. Psych: Underlying bipolar/schizophrenia. Miscellaneous: No acute issues. Prophylaxis: Pneumatic compression Diet: Cardiac Quality Stroke Does the patient have a stroke diagnosis?: Yes Reason for No Anti-thrombotic by Day Two: N/A - Med Ordered VTE Prior VTE?: No VTE Risk Level:: Medical - moderate - high VTE Device Contraindication: N/A - Device Ordered VTE Drug Contraindication: Treatment Not Indicated
--- NOTE | 2025-05-04 10:36 | MHC.CM.PN ---
Addendum entered by Tiffany Lewis RN 05/04/25 16:02: WHEN PT COMPLETED HCP, PT REPORTED THEY WANT HIM TO GO UPSTAIRS TO PSYCH UNIT WHEN HE IS CLEARED, PT REPORTS HE WOULD LIKE TO SIGN IN AND GET BACK ON HIS PSYCH MEDS HE HAS BEEN OFF MEDS FOR ALMOST 2 YRS. Addendum entered by Tiffany Lewis RN 05/04/25 15:58: CM RECEIVED MESSAGE FROM PATIENT CASE COORDINATOR WHO REPORTED SHE CALLED SEVERAL PCP OFFICES AND WAS TOLD THEY WERE NOT TAKING NEW PT'S UNTIL NEXT YEAR. CM MET W/PT TO COMPLETE HCP, PT PROVIDED W/EDUCATIONAL HAND OUT IN [place], PT HAS NAMED HIS CHILD MOTHER/EX PONCE PIERRE [phone] HIS [facility] AND SISTER MARIA ANTONIA JOHN [phone] HIS ALTERNATE, PT RECEIVED ORIGINAL AND COPY PLACED IN PHYSICAL CHART. Original Note: IMM 05/04/25, EMR REVIEWED, PT W/R SIDED WEAKNESS/STROKE IN ICU TNK, CM MET W/PT WHO IS A&0X4, PT REPORRTS HE LIVES ALONE, IS FULLY INDEP W/CARE, DENIES USE OF DME/SERVICES, PT REPORTS HIS GOAL FOR DC IS HOME W/SHUTTLE VS BUS PASS. PT REPORTS HE HAS NOT SEEN HIS PCP FOR APPROX 5 YRS AND IS INTERESTED IN NEW PCP, TASK FOR NEW PCP APPT SENT TO CM OFFICE.
--- NOTE | 2025-05-04 11:36 | P.CNNE_ITS ---
History of Present Illness Data of Consult Service Date: 05/03/25 Primary Care Provider: Jaime Hackett MD HPI Reason for consult: Stroke 45 years old man with past medical history of psychotic disease and sometime using cocaine came to hospital with sudden onset of right-sided weakness and difficulty speaking. He was evaluated in emergency room where I saw him and then I again saw him this morning. In emergency room he had right hemiparesis including face arm or leg and mild difficulty speaking. With tentative diagnosis of acute ischemic infarct and negative head CT, he was treated with TNK and admitted in ICU. This morning he was doing better with resolution of symptoms. He said that his last use of cocaine was few days ago. Review of Systems 2 Review of Systems: No recent cold or flu-like illness or headache PMFSH Past Medical History Medical History Bipolar 1 disorder Schizophrenia Family History Family History Father Anxiety Mother Diabetes High blood pressure Social History Social History Household Members: None Housing: Apartment Do you presently have visiting nurse or other home services: No Alcohol intake: current Alcohol intake frequency: holidays/special occasions only Patient Tobacco Use Status: Never used Tobacco Cigarette Packs Per Day: 1 Cigarettes Per Day: 20.0 Years Smoked: since age 9 Smoked in Last 30 Days: No Second Hand Smoke Exposure: Yes Use of substances other than those prescribed or required for medical reasons: No Substance Use Type: Crack/Cocaine and Marijuana Currently Displaying Signs/Symptoms of Drug Intoxication Withdrawal: No Have you been hit, kicked, punched, or otherwise hurt by someone within the past year? If so, by whom?: No Advance Directives: No Advance Directives Information Provided: Yes Do you have a plan to hurt others: No Plan Nutrition Risks: No Nutritional Risk Poor oral hygiene: No service: No Sexual orientation: Straight/Heterosexual Meds Allergies Allergy/AdvReac Type Severity Reaction Status Date / Time No Known Allergies (No Known Allergy Unverified 05/03/25 15:17 Allergies*) Active Medications: Current Medications Melatonin (Melatonin 3 Mg Tablet) 9 mg PO BEDTIME PRN PRN Reason: Insomnia Last Admin: 05/03/25 22:29 Dose: 9 mg Sodium Chloride (0.9 % Sodium Chloride Flush 3 Ml Syringe) 3 ml IVFLUSH QSHIFT FLORENTIN Last Admin: 05/04/25 07:34 Dose: 3 ml Home Medications ?Medication ?Instructions ?Recorded ?Confirmed ?Last Taken ?Type No Known Home Meds 05/03/25 05/03/25 Un known History Physical Exam 2 Vital Signs: Vital Signs: Last Vital Signs Temp 97.0 F 05/04/25 10:00 Pulse 74 05/04/25 10:00 Resp 12 05/04/25 10:00 BP 124/76 05/04/25 10:00 Pulse Ox 96 05/04/25 10:00 O2 Del Method Room Air 05/04/25 10:00 BMI result Body Mass Index 34.0 Neuro: Other: He is alert and awake with normal spontaneity of speech fluency comprehension and slightly anxious affect. Face is symmetrical. Visual naqvi are full. There was no pronator drift. [id number] testing is normal. There was no focal arm or leg weakness. Plantars are flexor. Deep tendon reflexes are trace to absent. Speech is normal. Results Labs 05/04/25 04:30 05/04/25 04:30 Labs: Short CBC 05/03/25 05/04/25 Range/Units 15:08 04:30 WBC 13.7 H 12.9 H (4.8-10.8) X10*3/uL Hgb 13.9 L 13.9 L (14.0-18.0) g/dl Hct 39.9 L 39.8 L (42.0-52.0) % Plt Count 363 338 (160-400) X10*3/uL BMP 05/03/25 05/04/25 15:08 04:30 Sodium 138 138 Potassium 3.6 3.4 Chloride 105 104 Carbon Dioxide 22 25 BUN 12 11 Creatinine 0.76 0.75 Calcium 8.9 8.4 Liver Function 05/03/25 Range/Units 15:08 Total Bilirubin 0.4 (0.0-1.0) mg/dL Direct Bilirubin 0.2 (0.0-0.5) mg/dL AST 20 (5-37) U/L ALT 16 (0-40) U/L Alkaline Phosphatase 66 (39-117) U/L Albumin 4.4 (3.5-5.0) g/dL Head CT did not reveal any significant abnormality. CTA was okay. Assessment and Plan (1) Stroke: Qualifiers: CVA mechanism: unspecified Qualified Code(s): I63.9 - Cerebral infarction, unspecified Status: Acute 45 years old man with underlying history of psychotic disease and history of cocaine use, last use few days ago, came to hospital with sudden onset of right hemiparesis and slurred speech. With tentative diagnosis of acute ischemic infarct, he was treated with TNK. CTA did not reveal any large vessel disease. Now he was doing better with resolution of symptoms. My recommendation is to obtain a noncontrast MRI of brain. He was educated about strokes and was strongly advised to not use cocaine and minimize alcohol use. Other stroke risk factors including lipid abnormality should also be treated. His blood pressure was intermittently high and should also be address. After 24 hours of TNK, I would start him on aspirin 81 mg daily and a statin dose. Procedures Date of Service Date of Service: 05/04/25
--- NOTE | 2025-05-04 11:50 | PM.EVENT ---
Event Note Date of Service: 05/04/25 Event Note: Patient admitted for right-sided weakness with difficulty speaking. Received TNK in ED, symptoms resolved. Symptoms then recurred, repeat brain imaging was negative. Symptoms have subsequently resolved, MRI pending. Evaluated by PT/OT not deemed to need any services. Passed swallow evaluation. Seen by Neurology, After 24 hours of TNK we will start aspirin, statin. Time Spent With Patient Time: Total time managing care of this patient today ____ minutes.
[2025-05-04 12:06] LABS: Glucose, Whole Blood 103 mg/dL (60-115)
--- NOTE | 2025-05-04 15:39 | PC.NURSE ---
P: Alteration in Neurological Functioning I: See nursing documentation and MD orders E: Neuro exam done Q1hr sp TNK per provider. No new deficits noted. Pt transferred to [facility]
[2025-05-04 15:41] LABS: Glucose, Whole Blood 119 mg/dL (60-115)
[2025-05-04 21:08] LABS: Glucose, Whole Blood 109 mg/dL (60-115)
[2025-05-05] VITALS: BP 112/62; PULSE 82; RESP 16; TEMP 36.4; O2SAT 98
[2025-05-05 05:57] VITALS: BMI 34.1
[2025-05-05 07:46] LABS: Glucose, Whole Blood 104 mg/dL (60-115)
[2025-05-05] MEDS: 0.9 % Sodium Chloride Flush 3 ML SYRINGE IVFLUSH (07:54)
--- NOTE | 2025-05-05 07:58 | PM.DS ---
DS: Providers Provider Date of Service: 05/05/25 Date of admission: 05/03/25 16:12 Date of discharge: 05/05/25 Primary care physician: Jaime Hackett MD Consults: 05/03/25 16:09 Consult to Neurology Routine Consulting Provider: [facility] Reason for consultation: CVA s/p TNK Has provider been notified: No DS: Diagnosis Discharge Diagnosis (1) Stroke: Status: Acute DS: Summary Hospital Course Hospital Course: History and physical as per admitting provider. 45-year-old gentleman with underlying bipolar disorder, schizophrenia off medications presented complaining of an acute offset of right-sided weakness with difficulty speaking. On ER evaluation CT head with no acute findings. Patient administered TNK and admitted to intensive care unit for close monitoring. Had/neck imaging with no large vessel obstruction. 45-year-old man treated for acute stroke. Status post TNK on 05/03/2025 with resolution of symptoms. Brain MRI showed small acute infarcts in the left stone radiata and basal ganglia. Seen and evaluated by Physical therapy with no recommendation for continued physical therapy or occupational therapy. Patient educated on the importance of healthy lifestyle, weight loss, exercise, avoiding drug use. Patient will be sent home on aspirin and statin. Patient should follow up with the primary care provider as needed Bipolar, schizophrenia. Not on any home medications. Recommended to follow up with outpatient psychiatry Time Attestation Discharge Coordination Time (in mins): 40 Quality: Safe Use of Opioids Does Pt have an Active Cancer Diagnosis on the Problem List?: No Quality: Stroke Does the patient have a stroke diagnosis?: No Physical Exam Exam: Exam: Appearing in no acute distress head is normocephalic atraumatic eyes pupils are PERRLA sclera is anicteric mouth throat mucous membranes are intact and moist neck is supple no lymphadenopathy, no JVD noted lung sounds are clear to auscultation heart regular rate rhythm, clear S1, S2 positive bowel sounds, abdomen is soft, nontender neuro patient is alert x3, no focal deficits Vital Signs: Vital Signs: Last Vital Signs Temp 97.5 F 05/05/25 00:00 Pulse 82 05/05/25 00:00 Resp 16 05/05/25 00:00 BP 112/62 05/05/25 00:00 Pulse Ox 98 05/05/25 00:00 O2 Del Method Room Air 05/05/25 00:00 BMI result Body Mass Index 34.1 DS: Data Data Completed and Pending Labs on day of discharge: Laboratory Results - last 24 hr 05/04/25 05/04/25 05/04/25 11:44 15:36 21:02 POC Glucose 103 119 H 109 05/05/25 07:31 POC Glucose 104 Discharge Plan Discharge Anticipated Discharge Date/Time: 05/05/25 07:56 Patient Disposition: Home, Self-Care Discharge Diagnosis: Stroke Referrals: Jaime Hackett MD [Primary Care Provider, Internal Medicine] - 1 Week Discharge Medications: New atorvastatin 40 mg Tablet 40 mg PO BEDTIME Qty: 30 0RF aspirin 81 mg Tablet,Delayed Release (Dr/Ec) 81 mg PO DAILY Qty: 30 0RF Discharge Orders: Discharge Order (Routine); Ordered 05/05/25 Ordered By: Khadijah Benitez Diet: Advance to usual diet Activity on Discharge: As tolerated Stand Alone Forms: Patient Portal Discharge page Print Language: Uzbek Care Plan Goals: You have been started on aspirin 81 mg daily and atorvastatin 40 mg daily Health Concerns: Stroke Plan of Treatment: Follow up with primary care provider as needed Take all medications as prescribed Assessment: See discharge summary
[2025-05-05 08:00] VITALS: BP 133/87; PULSE 71; RESP 18; TEMP 36.1; O2SAT 99
[2025-05-05 08:03] LABS: MANUAL DIFF FLAG NO
[2025-05-05 08:11] LABS: Hematocrit 40.9 % (42.0-52.0); Hemoglobin 14.1 g/dl (14.0-18.0); Imm Gran Abs Auto 0.04 X10*3/uL (0.00-0.03); Imm Gran Pct Auto 0.4 % (0.0-0.4); Lymphocytes Absolute Auto 2.3 X10*3/uL (1.2-4.9); Mean Corpuscular HGB Conc 34.5 g/dl (31.0-36.0); Mean Corpuscular Hemoglobin 30.8 pg (27.0-33.0); Mean Corpuscular Volume 89.3 fL (80.0-98.0); NRBC Abs Auto 0.000 X10*3/uL (0.0-0.012); NRBC Pct Auto 0.0 /100WBC (0.0-0.2); Platelet Count 329 X10*3/uL (160-400); Red Blood Count 4.58 X10*6/uL (4.60-5.80); White Blood Count 11.1 X10*3/uL (4.8-10.8)
[2025-05-05 08:28] LABS: Albumin Level 4.0 g/dL (3.5-5.0); Anion Gap 18 (12-20); Blood Urea Nitrogen 17 mg/dL (9-16); Calcium 8.7 mg/dL (8.4-10.2); Carbon Dioxide 25 mmol/L (22-29); Chloride 100 mmol/L (96-108); Creatinine Clr Calc Pharmacy 131.8; Estimated Glomerular Filt Rate > 60; Magnesium 2.1 mg/dL (1.6-2.6); Potassium 3.7 mmol/L (3.3-5.1); Sodium 139 mmol/L (135-145)
--- NOTE | 2025-05-05 11:25 | MHC.CM.PN ---
Pt is medically cleared for discharge home self-care, he will transport home via Lyft ride.
== END 2025-05-05 10:24 | disposition home or self-care (01) | DRG 62 ==
LOC: HO.ED 16:15 → HO.EDOVER 16:39 → HO.ICU 17:16 → HO.IMC 05-04 12:47
PROVIDERS: Admitting Provider Internal Medicine Pulmonary Disease; Emergency Provider Emergency Medicine Emergency Medical Services; PCP Internal Medicine; Visit Provider Nurse Practitioner Acute Care
DX: I63.9 Cerebral infarction, unspecified (principal); G81.91 Hemiplegia, unspecified affecting right dominant side; F31.9 Bipolar disorder, unspecified; F19.10 Other psychoactive substance abuse, uncomplicated; Z79.82 Long term (current) use of aspirin; Z79.899 Other long term (current) drug therapy
CPT/HCPCS: 36415; 70450; 70496; 70498; 70551; 71045; 80048; 80061; 80076; 80307; 82040; 82947; 83735; 84100; 84484; 85025; 85610; 85730; 93005; 93306; 97161; 97165; 99285; J2250; J3101; Q9957; Q9967

== ENCOUNTER → 2025-05-03 14:49 | Outpatient (BNV) | payer MEDICARE, MEDICAID, SELFPAY | PROVIDERS: Emergency Provider Emergency Medicine Emergency Medical Services; Visit Provider Radiology Diagnostic Radiology | DX: I63.9 Cerebral infarction, unspecified (principal); R91.8 Other nonspecific abnormal finding of lung field | CPT/HCPCS: 70496; 70498; 71045 ==

== ENCOUNTER → 2025-05-03 14:49 | Outpatient (BNV) | payer MEDICARE, SELFPAY | PROVIDERS: Admitting Provider Internal Medicine Pulmonary Disease; Emergency Provider Emergency Medicine Emergency Medical Services; PCP Internal Medicine; Visit Provider Internal Medicine Cardiovascular Disease | DX: I49.9 Cardiac arrhythmia, unspecified (principal); I45.4 Nonspecific intraventricular block | CPT/HCPCS: 93010 ==

== ENCOUNTER 2025-05-03 16:12 | Outpatient (BNV) | payer MEDICARE, SELFPAY | END 2025-05-04 08:00 | PROVIDERS: Admitting Provider Internal Medicine Pulmonary Disease; Emergency Provider Emergency Medicine Emergency Medical Services; PCP Internal Medicine; Visit Provider Radiology Diagnostic Radiology | DX: I63.81 Other cerebral infarction due to occlusion or stenosis of small artery (principal) | CPT/HCPCS: 70551 ==

== ENCOUNTER 2025-05-03 16:12 | Outpatient (BNV) | payer MEDICARE, SELFPAY | END 2025-05-04 07:00 | PROVIDERS: Admitting Provider Internal Medicine Pulmonary Disease; Emergency Provider Emergency Medicine Emergency Medical Services; PCP Internal Medicine; Visit Provider Internal Medicine Cardiovascular Disease | DX: I67.9 Cerebrovascular disease, unspecified (principal) | CPT/HCPCS: 93306 ==

== ENCOUNTER → 2025-05-03 16:12 | Outpatient (BNV) | payer MEDICARE, SELFPAY | PROVIDERS: Admitting Provider Internal Medicine Pulmonary Disease; Emergency Provider Emergency Medicine Emergency Medical Services; PCP Internal Medicine; Visit Provider Internal Medicine Pulmonary Disease | DX: F19.10 Other psychoactive substance abuse, uncomplicated (principal); F31.9 Bipolar disorder, unspecified; I63.9 Cerebral infarction, unspecified | CPT/HCPCS: 99222; 99231 ==

== ENCOUNTER → 2025-05-03 16:12 | Outpatient (BNV) | payer MEDICARE, SELFPAY | PROVIDERS: Admitting Provider Internal Medicine Pulmonary Disease; Emergency Provider Emergency Medicine Emergency Medical Services; PCP Internal Medicine; Visit Provider Physician Assistant Medical | DX: I63.9 Cerebral infarction, unspecified (principal) | CPT/HCPCS: 99239; 99499 ==

== ENCOUNTER → 2025-05-03 16:12 | Outpatient (BNV) | payer MEDICARE, SELFPAY | PROVIDERS: Admitting Provider Internal Medicine Pulmonary Disease; Emergency Provider Emergency Medicine Emergency Medical Services; PCP Internal Medicine; Visit Provider Psychiatry & Neurology Neurology | DX: I63.9 Cerebral infarction, unspecified (principal) | CPT/HCPCS: 99222 ==

== ENCOUNTER 2025-05-05 23:35 | Inpatient (IN) | payer MEDICARE, SELFPAY ==
[2025-05-05 23:49] VITALS: BP 165/79; PULSE 113; RESP 20; TEMP 35.8; O2SAT 99; BMI 32.7
[2025-05-06 00:16] LABS: MANUAL DIFF FLAG NO
[2025-05-06 00:18] LABS: Hematocrit 39.9 % (42.0-52.0); Hemoglobin 14.0 g/dl (14.0-18.0); Imm Gran Abs Auto 0.04 X10*3/uL (0.00-0.03); Imm Gran Pct Auto 0.3 % (0.0-0.4); Lymphocytes Absolute Auto 3.5 X10*3/uL (1.2-4.9); Mean Corpuscular HGB Conc 35.1 g/dl (31.0-36.0); Mean Corpuscular Hemoglobin 30.2 pg (27.0-33.0); Mean Corpuscular Volume 86.2 fL (80.0-98.0); NRBC Abs Auto 0.000 X10*3/uL (0.0-0.012); NRBC Pct Auto 0.0 /100WBC (0.0-0.2); Platelet Count 400 X10*3/uL (160-400); Red Blood Count 4.63 X10*6/uL (4.60-5.80); White Blood Count 13.4 X10*3/uL (4.8-10.8)
[2025-05-06 00:40] LABS: Alanine Aminotransferase 18 U/L (0-40); Albumin Level 4.8 g/dL (3.5-5.0); Alkaline Phosphatase 69 U/L (39-117); Anion Gap 18 (12-20); Aspartate Amino Transferase 17 U/L (5-37); Blood Urea Nitrogen 12 mg/dL (9-16); Calcium 9.5 mg/dL (8.4-10.2); Carbon Dioxide 21 mmol/L (22-29); Chloride 108 mmol/L (96-108); Creatinine Clr Calc Pharmacy 124.5; Estimated Glomerular Filt Rate > 60; Potassium 3.8 mmol/L (3.3-5.1); Sodium 143 mmol/L (135-145); Total Protein 7.6 g/dL (6.5-8.0)
--- NOTE | 2025-05-06 00:56 | ED_ITS ---
HPI - Psych General Chief Complaint: Psychiatric Symptoms Stated Complaint: depression Time Seen by Provider: 05/06/25 00:27 Source: patient Mode of arrival: ambulatory Limitations: no limitations History of Present Illness ED Provider: Dr. Pilar Thomas HPI Narrative: Patient comes to the emergency room by private vehicle. According to the patient, he was discharged home today from the hospital, he was here for a CVA. Patient states that when he got home, his niece and the patient had an argument, then use brought him to the emergency room and dropped him off. Patient states that he feels suicidal, wants to kill himself in any possible way, complaining of family health stressors. At this time, patient states that he feels very angry because he can not sleep, overall, patient states that he has a lot of stress and feels very unhappy with his life and wants to end it. Denies HI Related Data Previous Rx's ?Medication ?Instructions ?Recorded aspirin 81 mg tablet,delayed 81 mg PO DAILY #30 tabs 0 05/05/25 release atorvastatin 40 mg tablet 40 mg PO BEDTIME #30 tabs Allergies Allergy/AdvReac Type Severity Reaction Status Date / Time No Known Allergies (No Known Allergy Verified 05/05/25 23:52 Allergies*) Review of Systems 2 Review of Systems: Constitutional : No Weight loss, No Fever, No Chills, No Night Sweats, No Fatigue, No Malaise ENT/Mouth : No Hearing loss, No Ear Pain, No Nasal Congestion, No Sinus Pain, No Hoarseness, No sore throat, No Rhinorrhea, No Swallowing Difficulty Eyes: No Eye Pain, No Swelling, No Redness, No Foreign Body, No Discharge, No Vision Changes Cardiovascular : No Chest Pain, No SOB, No Dyspnea on Exertion, No Orthopnea, No Edema, No Palpitations Respiratory : No Cough, No Sputum, No Wheezing, No Smoke Exposure, No Dyspnea Gastrointestinal : No Nausea, No Vomiting, No Diarrhea, No Constipation, No abdominal Pain, No Hematochezia, No Melena Genitourinary : no irregular bleeding, No Dysuria, No Urinary Frequency, No Hematuria, No Urinary Incontinence, No Urgency, No Flank Pain, No Urinary Flow Changes, No Hesitancy Musculoskeletal : No joint pain, No Myalgias, No Joint Swelling Skin : No Skin Lesions, No rash Neuro : No Weakness, No Numbness, No Paresthesias, No Loss of Consciousness, No Dizziness, No Headache Psych : complaining of anxiety, depression, suicidal ideation, no homicidal ideation Heme/Lymph: No Bruising, No Bleeding,No Lymphadenopathy Endocrine : No Polyuria, No Polydipsia, No Temperature Intolerance [facility] Past Medical History Medical History Schizophrenia Bipolar 1 disorder Family History Family History Father Anxiety Mother Diabetes High blood pressure Social History Social History Household Members: None Housing: Apartment Do you presently have visiting nurse or other home services: No Alcohol intake: current Alcohol intake frequency: holidays/special occasions only Patient Tobacco Use Status: Never used Tobacco Cigarette Packs Per Day: 1 Cigarettes Per Day: 20.0 Years Smoked: since age 9 Smoked in Last 30 Days: No Second Hand Smoke Exposure: Yes Use of substances other than those prescribed or required for medical reasons: No Substance Use Type: Crack/Cocaine and Marijuana Advance Directives: No Advance Directives Information Provided: No Do you have a plan to hurt others: No Plan service: No Sexual orientation: Straight/Heterosexual Physical Exam 2 Exam: Exam: Appearance: Alert. Oriented X3. No acute distress. Eyes: Pupils equal, round and reactive to light. ENT: Pharynx normal. Neck: Normal inspection. Neck supple. No lymph nodes noted. No crepitus CVS: Normal heart rate and rhythm. Pulses normal. Normal S1 and S2 Respiratory: No respiratory distress. Breath sounds normal. No Wheezing. No rales Abdomen: Soft and nontender. No rigidity. No distention. Skin: Skin warm and dry. Normal skin color. Normal skin turgor. Extremities: No lower extremity edema. No Lacerations. No Rash Neuro: Oriented X 3. No motor deficit. No sensory deficit. Moving all extremities. No slurred speech. CN 2 through 12 grossly intact Psych: calm, cooperative, normal affect Vital Signs: Vital Signs: Last Vital Signs Temp 98.6 F 05/07/25 09:04 Pulse 73 05/07/25 09:04 Resp 14 05/07/25 09:04 BP 133/87 05/07/25 09:04 Pulse Ox 97 05/07/25 09:04 O2 Del Method Room Air 05/07/25 09:04 BMI result Body Mass Index 32.7 Course Course Course Narrative: patient was discharged a few hours ago for a CVA. Now returning for psychiatric symptoms including anxiety depression anger, complaining of suicidal ideation, denies HI Reevaluation(s) Reevaluation #1: DR. Padilla's progress note 05/06/2025 9:00. VSS, calm, continue with section 12, bed search is underway, will continue with physician observation. Time: 09:00 Reevaluation #2: Time: 08:40 Date: 05/07/25 Provider: EDGAR Etienne Patient in physician observation for psychiatric evaluation.? No acute events reported overnight. No current complaints. VS stable.? Patient is in bed search status. Will continue to monitor. Reevaluation #3: Time: 15:29 Date: 05/07/25 Provider: Essence Pickens DO Physician observation ended at 329pm. Patient to be admitted as inpatient to psychiatry Medications Administered Discontinued Medications Generic Name Dose Route Start Last Admin Trade Name Freq PRN Reason Stop Dose Admin Diphenhydramine HCl 50 mg 05/06/25 00:59 05/06/25 01:59 Diphenhydramine Hcl 25 Mg Capsule PO 05/06/25 01:00 50 mg ONCE ONE Administration Lorazepam 2 mg 05/06/25 00:59 05/06/25 02:01 Lorazepam 1 Mg Tablet PO 05/06/25 01:00 2 mg ONCE ONE Administration Lorazepam 2 mg 05/06/25 11:29 05/06/25 12:34 Lorazepam 1 Mg Tablet PO 05/06/25 11:30 2 mg ONCE ONE Administration Lorazepam 1 mg 05/07/25 14:34 05/07/25 14:41 Lorazepam 1 Mg Tablet PO 05/07/25 14:35 1 mg ONCE ONE Administration Medical Decision Making Medical Decision Making [facility] Narrative: no significant acute abnormality in patient's hematology or chemistry, normal LFTs, ETOH 190 patient is now on a Section 1 care team consult pending physician observation started at 01:00 Differential Diagnosis Differential Diagnoses: The differential diagnosis associated with the presentation includes ( anxiety, depression, suicidal ideation, bipolar disorder) Admission/Observation Consideration of admission/observation: Escalation of care including admission/observation considered ( patient is waiting to be seen by the care team to determine his disposition) Lab Data MDM Lab Attestation statement: I reviewed the patient's lab results. 05/06/25 00:11 05/06/25 00:11 Labs: Lab Results 05/06/25 05/06/25 Range/Units 00:11 11:18 WBC 13.4 H (4.8-10.8) X10*3/uL RBC 4.63 (4.60-5.80) X10*6/uL Hgb 14.0 (14.0-18.0) g/dl Hct 39.9 L (42.0-52.0) % MCV 86.2 (80.0-98.0) fL MCH 30.2 (27.0-33.0) pg MCHC 35.1 (31.0-36.0) g/dl RDW 14.0 (11.0-16.0) % Plt Count 400 (160-400) X10*3/uL MPV 8.8 L (9.4-12.4) fL Immature Gran % (Auto) 0.3 (0.0-0.4) % Neut % (Auto) 67.4 (45-73) % Lymph % (Auto) 25.9 (20-40) % [place] % (Auto) 5.7 (2-11) % Eos % (Auto) 0.4 (0-4) % Baso % (Auto) 0.3 (0-2) % Lymph # (Auto) 3.5 (1.2-4.9) X10*3/uL [place] # (Auto) 0.8 (0.1-1.2) X10*3/uL Eos # (Auto) 0.1 (0.0-0.4) X10*3/uL Baso # (Auto) 0.0 (0.0-0.2) X10*3/uL Abs Immat Gran (auto) 0.04 H (0.00-0.03) X10*3/uL Absolute Neuts (auto) 9.1 H (2.0-8.3) x10*3/uL Absolute Nucleated RBC 0.000 (0.0-0.012) X10*3/uL Nucleated RBC % (auto) 0.0 (0.0-0.2) /100WBC Sodium 143 (135-145) mmol/L Potassium 3.8 (3.3-5.1) mmol/L Chloride 108 (96-108) mmol/L Carbon Dioxide 21 L (22-29) mmol/L Anion Gap 18 (12-20) BUN 12 (9-16) mg/dL Creatinine 0.83 (0.5-1.4) mg/dL Estim Creat Clear Calc 124.5 Estimated GFR > 60 Random Glucose 117 H (60-115) mg/dL Calcium 9.5 D (8.4-10.2) mg/dL Total Bilirubin 0.2 (0.0-1.0) mg/dL AST 17 (5-37) U/L ALT 18 (0-40) U/L Alkaline Phosphatase 69 (39-117) U/L Total Protein 7.6 (6.5-8.0) g/dL Albumin 4.8 (3.5-5.0) g/dL Urine Color Yellow Urine Appearance Clear Urine pH 5.5 (5.0-9.0) Ur Specific [place] 1.020 (1.005-1.025) Urine Protein Negative (Neg-Trace) mg/dL Urine Glucose (UA) Negative (Negative) mg/dL Urine Ketones Negative (Negative) mg/dL Urine Blood Trace H (Negative) Urine Nitrite Negative (Negative) Ur Leukocyte Esterase Negative (Negative) Urine RBC 3-5 H (0-2) /HPF Urine WBC 0-5 (0-5) /HPF Ur Squamous Epith Cells 0-2 (0-2) /HPF Urine Bacteria None Seen (None Seen) Hyaline Casts 0-2 (0-2) /LPF Urine Opiates Screen Not Detected (Not Detect) Ur Buprenorphine Scrn Not Detected (Not Detect) ng/mL Ur Oxycodone Screen Not Detected (Not Detect) ng/mL Urine Methadone Screen Not Detected (Not Detect) ng/mL Urine Fentanyl Screen Not Detected (Not Detect) Ur Barbiturates Screen Not Detected (Not Detect) Ur Phencyclidine Scrn Not Detected (Not Detect) Ur Amphetamines Screen Not Detected (Not Detect) U Benzodiazepines Scrn Not Detected (Not Detect) Urine Cocaine Screen Not Detected (Not Detect) U Marijuana (THC) Screen POSITIVE H (Not Detect) Ethyl Alcohol 190 mg/dL Critical Care Time Critical Care Time Critical Care Time: Yes Total Critical Care Time: 35 Attestation: I have personally provided critical care time. Time includes review of lab data, radiology results, discussion with consultants, and monitoring for potential decompensation. Intervention performed as documented. Discharge Plan Discharge Clinical Impression: Bipolar 1 disorder Patient Disposition: Admitted As Inpatient Interventions: [place]-Suicide Risk Severity Scale Last Done: 05/06/25 00:53
--- NOTE | 2025-05-06 00:56 | PC.NURSE ---
Pt brought back to the pod by security and EDT. He was awake, alert, calm and cooperative without distress noted. The pt independently ambulated to room 1 where he was assigned and politely settled into the room. MHA-T assisted with completing a belongings list for this patient. RN to bedside to find patient laying in the bed, awake with eyes open and respirations even and unlabored without distress noted. He offers not complaints at this time, states that he was just discharged from the 4th floor earlier today after having 4 back to back strokes , he is conversing freely and moving all extremities and adjusting himself in the bed freely and independently. He reports feeling unsafe at home s/t his episodes of paralysis that scares him and he felt as though he would be unsafe and potentially in his sleep if he were to remain home alone. Pt provided with gingerale per request
--- NOTE | 2025-05-06 05:01 | PC.NURSE ---
patient appears to be resting quietly at this time, no signs/symptoms of distress noted.
[2025-05-06 06:22] VITALS: BP 120/77; PULSE 76; RESP 16; TEMP 36.4; O2SAT 98
--- NOTE | 2025-05-06 06:24 | PC.NURSE ---
discussed medications with patient, states he has medications he has not been taking for approx a year. med rec completed w/ patient
--- NOTE | 2025-05-06 06:52 | PC.NURSE ---
Addendum entered by Jennifer Archer RN 05/06/25 06:53: Patient is a 45-year-old gentleman with underlying bipolar disorder, schizophrenia off medications presented complaining of an acute offset of right-sided weakness with difficulty speaking. On ER evaluation CT head with no acute findings. Patient administered TNK and admitted to intensive care unit for close monitoring. Had/neck imaging with no large vessel obstruction. Brain MRI showed small acute infarcts in the left stone radiata and basal ganglia. Seen and evaluated by Physical therapy with no recommendation for continued physical therapy or occupational therapy. Patient educated on the importance of healthy lifestyle, weight loss, exercise, avoiding drug use. Patient will be sent home on aspirin and statin. Upon discharge, patient had a disagreement with a family member and returned stating SI with no specific plan secondary to family stressors. Placed on a section 12. Patient resting quietly. Respirations even and non-labored. No distress noted at this time. Original Note: Medical History Schizophrenia Bipolar 1 disorder
[2025-05-06 08:25] VITALS: BP 118/77; PULSE 86; RESP 16; O2SAT 100
[2025-05-06 11:25] LABS: Appearance Urine Clear; Glucose Urine UA Negative (Negative); PH 5.5 (5.0-9.0); Specific Gravity - Urine 1.020 (1.005-1.025); UMIC TRIGGER UA YES
[2025-05-06 11:37] LABS: Cannabinoid Screen Urine POSITIVE (Not Detect)
[2025-05-06 19:50] VITALS: BP 101/59; PULSE 70; RESP 18; TEMP 37; O2SAT 97
--- NOTE | 2025-05-07 05:59 | PC.NURSE ---
Pt slept throughout the night. No apparent distress noted. Breaths equal even and unlabored with equal chest rises. Monitoring is ongoing.
[2025-05-07 06:07] VITALS: RESP 16
--- NOTE | 2025-05-07 07:13 | PC.NURSE ---
Assumed care of patient at 0645, patient appears to be in no apparent distress this am, calm and cooperative, ate breakfast and is now laying back in bed at this time. Continue plan of care for IPLOC
[2025-05-07 09:04] VITALS: BP 133/87; PULSE 73; RESP 14; TEMP 37; O2SAT 97
--- NOTE | 2025-05-07 10:17 | PHA.MEDREC ---
Pharmacy Consult ? Medication Reconciliation Pharmacy has REVIEWED the medication reconciliation COMPLETED BY NURSING. Claims match discharge packet from 05/05/25.
[2025-05-07 17:10] VITALS: BP 130/67; PULSE 88; TEMP 37.2; O2SAT 100
--- NOTE | 2025-05-07 19:02 | PC.ADMIT ---
Stephan Johnson is a 45 year old male, who is bilingual (thai/persian) and has a history of alcohol use disorder, cocaine use disorder, bipolar 1 disorder and schizophrenia (off meds for the past year). Pt arrived on the unit from the POD on 15:24 via wheelchair + security on a CV. On 05/03 pt was admitted to the [facility] ICU for monitoring after presenting to the ED with stroke-like symptoms. Pt was given TKA and was brought to the ICU for further monitoring. Pt states he had 4 strokes back to back but not clear per documentation that he had 4 strokes. Upon discharge pt stated to providers there that he needed admission to [facility] due to not feeling well. Pt stated he had a really good experience on [facility] a couple of years ago and knows the staff there really well. Pt was allegedly denied admission to inpatient psych and was released from the hospital. Pt then feeling upset, went home and drank as much as he can and had a recurrence on EtOH after a 2-month period of sobriety. Pt then presented to the hospital for increased depression and SI w/ plan to do whatever it takes . Recent stressors include insurance issues causing him to loose his current providers and unable to access care. Upon arrival to the unit pt got not pleased he was brought to [facility] and requesting to be transferred to [facility]. After discussion with provider Kaylee pt calmed down and agreed to be open to the experience. Utox (+) for marijuana only. Skin check completed and WNL. No known allergies. Pt wants to speak with ACS team in regards to LESLIE - eventually wants Vivitrol injection but was advised it's only covered by insurance outpatient.
[2025-05-07 20:00] VITALS: BP 149/72; PULSE 94; RESP 18; TEMP 36.8; O2SAT 98
--- NOTE | 2025-05-07 20:35 | P.HPPS_ITS ---
HPI Date of Service: 05/07/25 Chief Complaint: SI Sources of Information: patient interviewed, chart reviewed and crisis/core team assessment reviewed HPI Subjective Notes: [place] Warning and Conditional Voluntary Healthcare Proxy: No Guardianship: No Medical Problems Affecting Mental Status: No Narrative: Per care team note: Patient is a 45 years old single bilingual male with history of schizophrenic who self presented to ED reporting SI and worsening depression. On M3: Patient reports that he came to the hospital having stroke . Reported he has for strokes in the past couple of months, with less strokes was on last . He was discharged, and re-presented. He does not want to drink and do bad stuff outside. He requests to be admitted here. He comfortable with M5 and requests to be transferred upstairs on admission. However he eventually he becomes less anxious, settle down, and do not replace to be transfered to . He spent a long time talking about his symptoms of stroke prior to be admitted. He denies suicidal thoughts at this current time/denies SIB/ denies HI/denies AVH. However reports that he always having suicidal thoughts, denies plan or intention to harm himself. Reports history of cut, last cut was when he was 13 years old. He shows some scars on the knees from cutting. He also reportx hx of head banging. Reported that he usually experiences command hallucination telling me to hurt myself or jump on the [place] . Also reports history of seeing shadow However he thought it is d/t his eye vision. Reports he last hearing voices was on Wednesday when he was at home. He does not appear to be psychotic, do not make any delusional statement. However, he reported that he feel paranoid, at home as he wants to make sure everyone's going to sleep first before he can sleep. He is tangential, hyperverbal. Reports mood is sad but happy to able to get help . Reports anxiety and depression lately is like 20/10 . Goal-directed: He wants to get better and stay away from drugs. Housing issues: He spent a lot of money on cocaine causing financial problem that he was not able to pay the bill. Reported that he has some housing issue with the landlord, went to court, and he needs to move soon to a new place- having section 8. Inconsistent with the reports. He requests to have Vivitrol IM for his alcohol. He do not appear to be withdrawal from anything but reports drinking alcohol 2 to 3 times a week with 12 beers. Smoke a lot of marijuana, and use cocaine. Has been stopped using cocaine the past 3-4 months. Past Psychiatric History: IP: Several at [facility]. Report this is his 5th admission here. First time on M3. OP: Used to have provider at [facility]; Jitendra Davalos. However, not currently. Not seeing Psychiatrist/therapist more than a year. Trials: Been taking Seroquel and Ambien from this dad. Not current prescribed. Medical Evaluation Reviewed: Yes [facility] Medical History Schizophrenia Bipolar 1 disorder Family History: Mom and dad is still alive. Reports lots of depression anxiety bipolar in his family with mom and dad and his 4 siblings. brothers (3) and one sister. Reports 1 of his brother is substance user. Social History: He is single, has 15 years old son who is with his mom. He never . Got GED, some housing situation with section 8. Reported that he has not able to pay for the bill. Went to court. With to move into the new place. Denies legal issues. He currently is not working. Substance History: Using a lot marijuana daily since he was 10 years old. Cut down on cocaine with last use was 3-4 months ago which he spent most of his money on. Denies cigarette smoking. Reports using alcohol 12 beers 2 to 3 times a week with last use was prior to come to the hospital. He wants Vivitrol IM for aftercare. Trauma History: Yes Diagnostics Vital Signs (24Hr): Vital Signs - 24 hr 05/07/25 06:07 05/07/25 09:04 05/07/25 17:10 Temperature 98.6 F 98.9 F Pulse Rate 73 88 Respiratory Rate 16 14 Blood Pressure 133/87 130/67 Pulse Oximetry 97 100 Oxygen Delivery Method Room Air Room Air BMI result Body Mass Index 32.7 Labs 05/06/25 00:11 05/06/25 00:11 Labs: Laboratory Results - last 48 hr 05/06/25 05/06/25 00:11 11:18 WBC 13.4 H RBC 4.63 Hgb 14.0 Hct 39.9 L MCV 86.2 MCH 30.2 MCHC 35.1 RDW 14.0 Plt Count 400 MPV 8.8 L Immature Gran % (Auto) 0.3 Neut % (Auto) 67.4 Lymph % (Auto) 25.9 Miller % (Auto) 5.7 Eos % (Auto) 0.4 Baso % (Auto) 0.3 Lymph # (Auto) 3.5 Miller # (Auto) 0.8 Eos # (Auto) 0.1 Baso # (Auto) 0.0 Abs Immat Gran (auto) 0.04 H Absolute Neuts (auto) 9.1 H Absolute Nucleated RBC 0.000 Nucleated RBC % (auto) 0.0 Sodium 143 Potassium 3.8 Chloride 108 Carbon Dioxide 21 L Anion Gap 18 BUN 12 Creatinine 0.83 Estim Creat Clear Calc 124.5 Estimated GFR > 60 Random Glucose 117 H Calcium 9.5 D Total Bilirubin 0.2 AST 17 ALT 18 Alkaline Phosphatase 69 Total Protein 7.6 Albumin 4.8 Urine Color Yellow Urine Appearance Clear Urine pH 5.5 Ur Specific [place] 1.020 Urine Protein Negative Urine Glucose (UA) Negative Urine Ketones Negative Urine Blood Trace H Urine Nitrite Negative Ur Leukocyte Esterase Negative Urine RBC 3-5 H Urine WBC 0-5 Ur Squamous Epith Cells 0-2 Urine Bacteria None Seen Hyaline Casts 0-2 Urine Opiates Screen Not Detected Ur Buprenorphine Scrn Not Detected Ur Oxycodone Screen Not Detected Urine Methadone Screen Not Detected Urine Fentanyl Screen Not Detected Ur Barbiturates Screen Not Detected Ur Phencyclidine Scrn Not Detected Ur Amphetamines Screen Not Detected U Benzodiazepines Scrn Not Detected Urine Cocaine Screen Not Detected U Marijuana (THC) Screen POSITIVE H Ethyl Alcohol 190 Meds/Allergies Allergies Allergies Allergy/AdvReac Type Severity Reaction Status Date / Time No Known Allergies (No Known Allergy Verified 05/05/25 23:52 Allergies*) Mental Status Exam Mental Status Exam Narrative: Patient is alert and oriented; behavior is cooperative, friendly with mild to moderate anxiety and depression; patient is not in distress; dressed in hospital attire with kempt hair and adequate hygiene; mood is described as sad but happy to able to get help affect incongruent; eye contact appropriate; Speech is normal rate, someehat hyperverbal, tangential, normal volume and prosody and not pressured; no psychomotor agitation/retardation present; thought process is disorganized but goal directed;inconsistent with report. Thought content is WNL and wanted treatment, pertinent to relevant topics and without any delusional content, or grandiosity; denies any SI/SIB/HI. However, report paranoid feeling. Denies AH and there is no evidence of perceptual disturbance. Patient's insight and judgment poor. Assessment & Plan Assessment & Plan (1) Polysubstance abuse: Status: Acute Code(s): F19.10 - Other psychoactive substance abuse, uncomplicated (2) Bipolar 1 disorder: Status: Acute Code(s): F31.9 - Bipolar disorder, unspecified Plan HPI: Patient is a 45 years old single bilingual male with history of schizophrenic who self presented to ED reporting SI and worsening depression. Formulation/clinical reasoning: No medication x1 year, here and there taking his dad Ambien and Seroquel. No outpatient providers or therapist, occasionally seen by PCP at [facility]. Increased depression, anxiety.? Manic episode/racing thoughts. Increased suicidal thoughts, experience AVH/CAH. Also reports paranoid, tangential, rumination. History of bipolar type 1, and schizophrenic. Given the above information, patient could be benefit in restrictive environment for his own safety, medication management, and refer to outpatient psychiatry services as aftercare the discharge. Hospital course: 05/07/25: Appeared to having some mild to moderate manic behavior with substance use, tangential, rumination, inconsistent with reports. We will leave it to attending to discussed with patient regarding mood stabilizer, and he has never been on mood stabilizer before herself reports. Start patient on Seroquel 100 at bedtime for mood Seroquel 12.5 mg b.i.d. 0900 and 1500 severe anxiety. Seroquel 25 mg b.i.d. p.r.n. for agitation. Hydroxyzine and trazodone p.r.n. for anxiety and insomnia. Plan Patient on 15 minute checks for safety. Admitted to . CV. Work with treatment team to do collateral or/and CSS/CCS if possible for aftercare. Refer to patient to ventilator specialist for alcohol use: pending result. Will place patient on CIWA protocol with PRN Ativan d/t drinking hx: Drinking 12 beers 2 to 3 times a week. Last drink was prior to coming to the hospital. BAL was 190. Patient educated on: diagnosis, medication risk/benefits, substance abuse and therapeutic strategies Informed Consent: understands and further education needed Reason for continued inpatient stay Substantial Risk for: med/psych decompensation Statement Statement: I have reviewed the history and physical and performed a pertinent examination on my patient. No changes have occurred unless specified. If the History and Physical was not performed prior to admission, the Hospitalist's service will be consulted for completing the admission physical. Time Spent With Patient Time: Total time managing care of this patient today ____ minutes.
[2025-05-08 07:32] VITALS: BP 122/78; PULSE 63; RESP 16; TEMP 36.4; O2SAT 99
[2025-05-08] MEDS: Aspirin Enteric Coated 81 MG TABLET.DR PO (08:28)
[2025-05-08 08:29] LABS: Hemoglobin A1C 135.8674 umol/L; Total Hemoglobin (HGBA1C) 3685.6414 umol/L
[2025-05-08 09:00] LABS: Alanine Aminotransferase 16 U/L (0-40); Albumin Level 4.3 g/dL (3.5-5.0); Alkaline Phosphatase 68 U/L (39-117); Anion Gap 13 (12-20); Aspartate Amino Transferase 20 U/L (5-37); Blood Urea Nitrogen 19 mg/dL (9-16); Calcium 9.1 mg/dL (8.4-10.2); Carbon Dioxide 24 mmol/L (22-29); Chloride 106 mmol/L (96-108); Cholesterol 181 mg/dL (<200); Creatinine Clr Calc Pharmacy 134.2; Estimated Glomerular Filt Rate > 60; HDL Cholesterol 46 mg/dL (>40); Potassium 4.4 mmol/L (3.3-5.1); Sodium 139 mmol/L (135-145); Total Protein 7.2 g/dL (6.5-8.0); Triglycerides 169 mg/dL (<150)
--- NOTE | 2025-05-08 10:30 | P.PNPSI_ITS ---
Subjective Subjective Date of Service: 05/08/25 Reason For Visit: SI Subjective Notes: Conditional Voluntary Interim History: Active on unit. social with peers. attending groups. pt reports feeling anxious d/t stressing out about having strokes . Pt stated, I'm worried about going out there and relapsing. I was sober for 2 months but the stress made me relapse on alcohol . Pt reports chronic suicidal ideation but states he would not act on these thoughts d/t his son. Pt stated, my kid keeps me going . Pt reports he has not been taking his psychiatric medications for the past year d/t insurance problems. He reports chronic auditory hallucinations that tell him to leave the unit. Pt reports previous psychiatric medications being helpful. denies HI/VH. Pt stated, I don't want to leave until I feel stable . Continue current tx plan. Medication Compliance: Yes Side effects from medications: No Attending Groups: Yes Mental Status Exam Mental Status Exam Narrative: Pt is alert and oriented; behavior is cooperative, and calm; dressed in casual attire; mood is described as anxious ; eye contact appropriate; Speech is normal rate, volume and not pressured; thought process is organized and goal directed; Thought content is on tx; denies HI/VH. He reports chronic SI with no plan/intent. Chronic auditory hallucinations. Diagnostics Vital Signs (24Hr): Vital Signs - 24 hr 05/07/25 17:10 05/07/25 20:00 05/08/25 07:32 Temperature 98.9 F 98.3 F 97.6 F Pulse Rate 88 94 63 Respiratory Rate 18 16 Blood Pressure 130/67 149/72 H 122/78 Pulse Oximetry 100 98 99 Oxygen Delivery Method Room Air Room Air Room Air BMI result Body Mass Index 32.7 Labs 05/06/25 00:11 05/08/25 07:59 Labs: Laboratory Results - last 48 hr 05/06/25 05/08/25 11:18 07:59 Sodium 139 Potassium 4.4 Chloride 106 Carbon Dioxide 24 Anion Gap 13 BUN 19 H Creatinine 0.77 Estim Creat Clear Calc 134.2 Estimated GFR > 60 Random Glucose 96 Estimat Average Glucose 111 Hemoglobin A1c % 5.5 Calcium 9.1 Total Bilirubin 0.4 AST 20 ALT 16 Alkaline Phosphatase 68 Total Protein 7.2 Albumin 4.3 Triglycerides 169 H Cholesterol 181 LDL Cholesterol, Calc 102 H HDL Cholesterol 46 TSH 2.06 Urine Color Yellow Urine Appearance Clear Urine pH 5.5 Ur Specific [place] 1.020 Urine Protein Negative Urine Glucose (UA) Negative Urine Ketones Negative Urine Blood Trace H Urine Nitrite Negative Ur Leukocyte Esterase Negative Urine RBC 3-5 H Urine WBC 0-5 Ur Squamous Epith Cells 0-2 Urine Bacteria None Seen Hyaline Casts 0-2 Urine Opiates Screen Not Detected Ur Buprenorphine Scrn Not Detected Ur Oxycodone Screen Not Detected Urine Methadone Screen Not Detected Urine Fentanyl Screen Not Detected Ur Barbiturates Screen Not Detected Ur Phencyclidine Scrn Not Detected Ur Amphetamines Screen Not Detected U Benzodiazepines Scrn Not Detected Urine Cocaine Screen Not Detected U Marijuana (THC) Screen POSITIVE H Medications Medications Current Medications Acetaminophen (Acetaminophen 325 Mg Tablet) 650 mg PO Q6H PRN PRN Reason: Headache/Pain, Scale 1-10 Al Hydroxide/Mg Hydroxide (Magnesium Hydrox/Alum Hydrox 30 Ml Oral.Susp) 30 ml PO Q6H PRN PRN Reason: Heartburn/Nausea Aspirin (Aspirin Enteric Coated 81 Mg Tablet.) 81 mg PO DAILY [facility] Last Admin: 05/08/25 08:28 Dose: 81 mg Atorvastatin Calcium (Atorvastatin Calcium 40 Mg Tablet) 40 mg PO BEDTIME [facility] Last Admin: 05/07/25 22:18 Dose: 40 mg Hydroxyzine HCl (Hydroxyzine Hcl 50 Mg Tablet) 50 mg PO Q6H PRN PRN Reason: mild anxiety Lorazepam (Lorazepam 1 Mg Tablet) 1 mg PO Q2H PRN PRN Reason: CIWA 8-11 Lorazepam (Lorazepam 1 Mg Tablet) 2 mg PO Q2H PRN PRN Reason: CIWA 12-15 Magnesium Hydroxide (Milk Of Magnesia 30 Ml Oral.Susp) 30 ml PO DAILY PRN PRN Reason: Constipation Nicotine (Nicotine 21 Mg Patch.Td24) 21 mg TRANSDERMA DAILY [facility] Last Admin: 05/08/25 08:29 Dose: Not Given Nicotine Polacrilex (Nicotine Polacrilex 2 Mg Gum) 4 mg BUCCAL Q2H PRN PRN Reason: Nicotine Cravings Quetiapine Fumarate (Quetiapine Fumarate 100 Mg Tablet) 100 mg PO BEDTIME [facility] Last Admin: 05/07/25 22:18 Dose: 100 mg Quetiapine Fumarate (Quetiapine Fumarate 25 Mg Tablet) 25 mg PO BID PRN PRN Reason: agitation/psychosis Quetiapine Fumarate (Quetiapine Fumarate 25 Mg Tablet) 12.5 mg PO BID@0900,1500 [facility] Last Admin: 05/08/25 08:28 Dose: 12.5 mg Thiamine HCl (Thiamine Hcl 100 Mg Tablet) 100 mg PO DAILY [facility] Last Admin: 05/08/25 08:28 Dose: 100 mg Trazodone HCl (Trazodone Hcl 50 Mg Tablet) 50 mg PO BEDTIME [facility]X1 PRN PRN Reason: Insomnia Last Admin: 05/07/25 22:18 Dose: 50 mg Allergies Allergies Allergy/AdvReac Type Severity Reaction Status Date / Time No Known Allergies (No Known Allergy Verified 05/05/25 23:52 Allergies*) Assessment & Plan Assessment & Plan (1) Polysubstance abuse: Status: Acute Code(s): F19.10 - Other psychoactive substance abuse, uncomplicated (2) Bipolar 1 disorder: Status: Acute Code(s): F31.9 - Bipolar disorder, unspecified Plan HPI: Patient is a 45 years old single bilingual male with history of schizophrenic who self presented to ED reporting SI and worsening depression. Formulation/clinical reasoning: No medication x1 year, here and there taking his dad Ambien and Seroquel. No outpatient providers or therapist, occasionally seen by PCP at [facility]. Increased depression, anxiety.? Manic episode/racing thoughts. Increased suicidal thoughts, experience AVH/CAH. Also reports paranoid, tangential, rumination. History of bipolar type 1, and schizophrenic. Given the above information, patient could be benefit in restrictive environment for his own safety, medication management, and refer to outpatient psychiatry services as aftercare the discharge. Hospital course: 05/07/25: Appeared to having some mild to moderate manic behavior with substance use, tangential, rumination, inconsistent with reports. We will leave it to attending to discussed with patient regarding mood stabilizer, and he has never been on mood stabilizer before herself reports. Start patient on Seroquel 100 at bedtime for mood Seroquel 12.5 mg b.i.d. 0900 and 1500 severe anxiety. Seroquel 25 mg b.i.d. p.r.n. for agitation. Hydroxyzine and trazodone p.r.n. for anxiety and insomnia. Plan Patient on 15 minute checks for safety. Admitted to . CV. Work with treatment team to do collateral or/and CSS/CCS if possible for aftercare. Refer to patient to resume specialist for alcohol use: pending result. Will place patient on CIWA protocol with PRN Ativan d/t drinking hx: Drinking 12 beers 2 to 3 times a week. Last drink was prior to coming to the hospital. BAL was 190. 05/08: Active on unit. social with peers. attending groups. pt reports feeling anxious d/t stressing out about having strokes . Pt stated, I'm worried about going out there and relapsing. I was sober for 2 months but the stress made me relapse on alcohol . Pt reports chronic suicidal ideation but states he would not act on these thoughts d/t his son. Pt stated, my kid keeps me going . Pt reports he has not been taking his psychiatric medications for the past year d/t insurance problems. He reports chronic auditory hallucinations that tell him to leave the unit. Pt reports previous psychiatric medications being helpful. denies HI/VH. Pt stated, I don't want to leave until I feel stable . Continue current tx plan. Patient educated on: diagnosis, medication risk/benefits and therapeutic strategies Reason for continued inpatient stay Substantial Risk for: med/psych decompensation Time Spent With Patient Time: Total time managing care of this patient today _20___ minutes.
[2025-05-08 20:00] VITALS: BP 135/85; PULSE 99; RESP 16; TEMP 36.4; O2SAT 97
[2025-05-09 08:00] VITALS: BP 118/64; PULSE 73; RESP 14; TEMP 36.6; O2SAT 98
[2025-05-09] MEDS: Aspirin Enteric Coated 81 MG TABLET.DR PO (09:03)
--- NOTE | 2025-05-09 14:40 | P.PNPSI_ITS ---
Subjective Subjective Date of Service: 05/09/25 Reason For Visit: SI Subjective Notes: Conditional Voluntary Interim History: Active on unit. social with peers. attending groups. pt reports he is starting to feel better but continues with feeling anxious and depressed; Seroquel increased to 200mg PO bedtime, per his previous medication regimen. Pt reports chronic suicidal ideation without plan or intent. He reports chronic auditory hallucinations telling him to leave the unit. denies HI/VH. DC CIWA; no longer scoring or having withdrawal symptoms. Patient reports he is interested in a referral to respite; social welfare administrator aware. Medication Compliance: Yes Side effects from medications: No Attending Groups: Yes Mental Status Exam Mental Status Exam Narrative: Pt is alert and oriented; behavior is cooperative, and calm; dressed in casual attire; mood is described as getting better ; eye contact appropriate; Speech is normal rate, volume and not pressured; thought process is organized and goal directed; Thought content is on tx; denies HI/VH. He reports chronic SI with no plan/intent. Chronic auditory hallucinations. Diagnostics Vital Signs (24Hr): Vital Signs - 24 hr 05/08/25 20:00 05/09/25 08:00 Temperature 97.6 F 97.8 F Pulse Rate 99 73 Respiratory Rate 16 14 Blood Pressure 135/85 118/64 Pulse Oximetry 97 98 Oxygen Delivery Method Room Air Room Air BMI result Body Mass Index 32.7 Labs 05/06/25 00:11 05/08/25 07:59 Labs: Laboratory Results - last 48 hr 05/08/25 07:59 Sodium 139 Potassium 4.4 Chloride 106 Carbon Dioxide 24 Anion Gap 13 BUN 19 H Creatinine 0.77 Estim Creat Clear Calc 134.2 Estimated GFR > 60 Random Glucose 96 Estimat Average Glucose 111 Hemoglobin A1c % 5.5 Calcium 9.1 Total Bilirubin 0.4 AST 20 ALT 16 Alkaline Phosphatase 68 Total Protein 7.2 Albumin 4.3 Triglycerides 169 H Cholesterol 181 LDL Cholesterol, Calc 102 H HDL Cholesterol 46 TSH 2.06 Medications Medications Current Medications Acetaminophen (Acetaminophen 325 Mg Tablet) 650 mg PO Q6H PRN PRN Reason: Headache/Pain, Scale 1-10 Al Hydroxide/Mg Hydroxide (Magnesium Hydrox/Alum Hydrox 30 Ml Oral.Susp) 30 ml PO Q6H PRN PRN Reason: Heartburn/Nausea Aspirin (Aspirin Enteric Coated 81 Mg Tablet.) 81 mg PO DAILY [facility] Last Admin: 05/09/25 09:03 Dose: 81 mg Atorvastatin Calcium (Atorvastatin Calcium 40 Mg Tablet) 40 mg PO BEDTIME [facility] Last Admin: 05/08/25 20:03 Dose: 40 mg Hydroxyzine HCl (Hydroxyzine Hcl 25 Mg Tablet) 25 mg PO Q6H PRN PRN Reason: mild anxiety Magnesium Hydroxide (Milk Of Magnesia 30 Ml Oral.Susp) 30 ml PO DAILY PRN PRN Reason: Constipation Nicotine Polacrilex (Nicotine Polacrilex 2 Mg Gum) 4 mg BUCCAL Q2H PRN PRN Reason: Nicotine Cravings Quetiapine Fumarate (Quetiapine Fumarate 25 Mg Tablet) 25 mg PO BID PRN PRN Reason: agitation/psychosis Quetiapine Fumarate (Quetiapine Fumarate 200 Mg Tablet) 200 mg PO BEDTIME [facility] Trazodone HCl (Trazodone Hcl 50 Mg Tablet) 50 mg PO BEDTIME MRX1 PRN PRN Reason: Insomnia Last Admin: 05/08/25 22:24 Dose: 50 mg Allergies Allergies Allergy/AdvReac Type Severity Reaction Status Date / Time No Known Allergies (No Known Allergy Verified 05/05/25 23:52 Allergies*) Assessment & Plan Assessment & Plan (1) Bipolar 1 disorder: Status: Acute Code(s): F31.9 - Bipolar disorder, unspecified (2) Polysubstance abuse: Status: Acute Code(s): F19.10 - Other psychoactive substance abuse, uncomplicated Plan Patient is a 45 years old single bilingual male with history of schizophrenic who self presented to ED reporting SI and worsening depression. Formulation/clinical reasoning: No medication x1 year, here and there taking his dad Ambien and Seroquel. No outpatient providers or therapist, occasionally seen by PCP at [facility]. Increased depression, anxiety.? Manic episode/racing thoughts. Increased suicidal thoughts, experience AVH/CAH. Also reports paranoid, tangential, rumination. History of bipolar type 1, and schizophrenic. Given the above information, patient could be benefit in restrictive environment for his own safety, medication management, and refer to outpatient psychiatry services as aftercare the discharge. Plan: Patient on 15 minute checks for safety. Admitted to . CV. Work with treatment team to do collateral or/and CSS/CCS if possible for aftercare. Refer to patient to embroidery specialist for alcohol use: pending result. Will place patient on CIWA protocol with PRN Ativan d/t drinking hx: Drinking 12 beers 2 to 3 times a week. Last drink was prior to coming to the hospital. BAL was 190. 05/07/25: Appeared to having some mild to moderate manic behavior with substance use, tangential, rumination, inconsistent with reports. We will leave it to attending to discussed with patient regarding mood stabilizer, and he has never been on mood stabilizer before herself reports. Start patient on Seroquel 100 at bedtime for mood Seroquel 12.5 mg b.i.d. 0900 and 1500 severe anxiety. Seroquel 25 mg b.i.d. p.r.n. for agitation. Hydroxyzine and trazodone p.r.n. for anxiety and insomnia. 05/08: Active on unit. social with peers. attending groups. pt reports feeling anxious d/t stressing out about having strokes . Pt stated, I'm worried about going out there and relapsing. I was sober for 2 months but the stress made me relapse on alcohol . Pt reports chronic suicidal ideation but states he would not act on these thoughts d/t his son. Pt stated, my kid keeps me going . Pt reports he has not been taking his psychiatric medications for the past year d/t insurance problems. He reports chronic auditory hallucinations that tell him to leave the unit. Pt reports previous psychiatric medications being helpful. denies HI/VH. Pt stated, I don't want to leave until I feel stable . Continue current tx plan. 05/09: Active on unit. social with peers. attending groups. pt reports he is starting to feel better but continues with feeling anxious and depressed; Seroquel increased to 200mg PO bedtime, per his previous medication regimen. Pt reports chronic suicidal ideation without plan or intent. He reports chronic auditory hallucinations telling him to leave the unit. denies HI/VH. DC CIWA; no longer scoring or having withdrawal symptoms. Patient reports he is interested in a referral to respite; social welfare administrator aware. Patient educated on: diagnosis, medication risk/benefits and therapeutic strategies Reason for continued inpatient stay Substantial Risk for: med/psych decompensation Time Spent With Patient Time: Total time managing care of this patient today _20___ minutes.
[2025-05-09 18:55] VITALS: BP 133/87; PULSE 97; RESP 17; TEMP 36.6; O2SAT 99
--- NOTE | 2025-05-09 18:56 | PC.NURSE ---
Patient c/o a 10/10 headache this evening, requested PRN Tylenol. Stated This is how it felt last week when I had a stroke . Vitals were taken (BP 133/87, 99%, 97, 97.8, 17R), patient had no other complaints, no s/s of stroke noted upon assessment (no facial droop, arm weakness or slurred speech noted) given a cool wash cloth for his head.
[2025-05-10 07:00] VITALS: BMI 32.9
[2025-05-10 07:51] VITALS: BP 150/76; PULSE 70; RESP 18; TEMP 36.5; O2SAT 98
[2025-05-10] MEDS: Aspirin Enteric Coated 81 MG TABLET.DR PO (08:22)
--- NOTE | 2025-05-10 11:29 | P.PNPSI_ITS ---
Subjective Subjective Date of Service: 05/10/25 Reason For Visit: SI Subjective Notes: Conditional Voluntary Interim History: pt reports feeling pretty good because of the medications ; Pt reports chronic suicidal ideation without plan or intent. He reports chronic auditory hallucinations. denies HI/VH. Patient stated, the meds make me feel relaxed ; observed laughing and joking with peers and staff. Medication Compliance: Yes Side effects from medications: No Attending Groups: Yes Mental Status Exam Mental Status Exam Narrative: Pt is alert and oriented; behavior is cooperative, and calm; dressed in casual attire; mood is described as getting better ; eye contact appropriate; Speech is normal rate, volume and not pressured; thought process is organized and goal directed; Thought content is on tx; denies HI/VH. He reports chronic SI with no plan/intent. Chronic auditory hallucinations. Diagnostics Vital Signs (24Hr): Vital Signs - 24 hr 05/09/25 18:55 05/10/25 07:51 Temperature 97.8 F 97.7 F Pulse Rate 97 70 Respiratory Rate 17 18 Blood Pressure 133/87 150/76 H Pulse Oximetry 99 98 Oxygen Delivery Method Room Air Room Air BMI result Body Mass Index 32.9 Labs 05/06/25 00:11 05/08/25 07:59 Medications Medications Current Medications Acetaminophen (Acetaminophen 325 Mg Tablet) 650 mg PO Q6H PRN PRN Reason: Headache/Pain, Scale 1-10 Last Admin: 05/09/25 18:48 Dose: 650 mg Al Hydroxide/Mg Hydroxide (Magnesium Hydrox/Alum Hydrox 30 Ml Oral.Susp) 30 ml PO Q6H PRN PRN Reason: Heartburn/Nausea Aspirin (Aspirin Enteric Coated 81 Mg Tablet.) 81 mg PO DAILY [facility] Last Admin: 05/10/25 08:22 Dose: 81 mg Atorvastatin Calcium (Atorvastatin Calcium 40 Mg Tablet) 40 mg PO BEDTIME [facility] Last Admin: 05/09/25 21:36 Dose: 40 mg Hydroxyzine HCl (Hydroxyzine Hcl 25 Mg Tablet) 25 mg PO Q6H PRN PRN Reason: mild anxiety Last Admin: 05/09/25 15:31 Dose: 25 mg Magnesium Hydroxide (Milk Of Magnesia 30 Ml Oral.Susp) 30 ml PO DAILY PRN PRN Reason: Constipation Naltrexone HCl (Naltrexone Hcl 50 Mg Tablet) 50 mg PO DAILY [facility] Last Admin: 05/10/25 10:48 Dose: 50 mg Nicotine Polacrilex (Nicotine Polacrilex 2 Mg Gum) 4 mg BUCCAL Q2H PRN PRN Reason: Nicotine Cravings Quetiapine Fumarate (Quetiapine Fumarate 25 Mg Tablet) 25 mg PO BID PRN PRN Reason: agitation/psychosis Last Admin: 05/09/25 23:28 Dose: 25 mg Quetiapine Fumarate (Quetiapine Fumarate 200 Mg Tablet) 200 mg PO BEDTIME [facility] Last Admin: 05/09/25 21:36 Dose: 200 mg Trazodone HCl (Trazodone Hcl 50 Mg Tablet) 50 mg PO BEDTIME MRX1 PRN PRN Reason: Insomnia Last Admin: 05/09/25 23:28 Dose: 50 mg Allergies Allergies Allergy/AdvReac Type Severity Reaction Status Date / Time No Known Allergies (No Known Allergy Verified 05/05/25 23:52 Allergies*) Assessment & Plan Assessment & Plan (1) Bipolar 1 disorder: Status: Acute Code(s): F31.9 - Bipolar disorder, unspecified (2) Polysubstance abuse: Status: Acute Code(s): F19.10 - Other psychoactive substance abuse, uncomplicated Plan Patient is a 45 years old single bilingual male with history of schizophrenic who self presented to ED reporting SI and worsening depression. Formulation/clinical reasoning: No medication x1 year, here and there taking his dad Ambien and Seroquel. No outpatient providers or therapist, occasionally seen by PCP at [facility]. Increased depression, anxiety.? Manic episode/racing thoughts. Increased suicidal thoughts, experience AVH/CAH. Also reports paranoid, tangential, rumination. History of bipolar type 1, and schizophrenic. Given the above information, patient could be benefit in restrictive environment for his own safety, medication management, and refer to outpatient psychiatry services as aftercare the discharge. Plan: Patient on 15 minute checks for safety. Admitted to . CV. Work with treatment team to do collateral or/and CSS/CCS if possible for aftercare. Refer to patient to rn clinical documentation specialist for alcohol use: pending result. Will place patient on CIWA protocol with PRN Ativan d/t drinking hx: Drinking 12 beers 2 to 3 times a week. Last drink was prior to coming to the hospital. BAL was 190. 05/07/25: Appeared to having some mild to moderate manic behavior with substance use, tangential, rumination, inconsistent with reports. We will leave it to attending to discussed with patient regarding mood stabilizer, and he has never been on mood stabilizer before herself reports. Start patient on Seroquel 100 at bedtime for mood Seroquel 12.5 mg b.i.d. 0900 and 1500 severe anxiety. Seroquel 25 mg b.i.d. p.r.n. for agitation. Hydroxyzine and trazodone p.r.n. for anxiety and insomnia. 05/08: Active on unit. social with peers. attending groups. pt reports feeling anxious d/t stressing out about having strokes . Pt stated, I'm worried about going out there and relapsing. I was sober for 2 months but the stress made me relapse on alcohol . Pt reports chronic suicidal ideation but states he would not act on these thoughts d/t his son. Pt stated, my kid keeps me going . Pt reports he has not been taking his psychiatric medications for the past year d/t insurance problems. He reports chronic auditory hallucinations that tell him to leave the unit. Pt reports previous psychiatric medications being helpful. denies HI/VH. Pt stated, I don't want to leave until I feel stable . Continue current tx plan. 05/09: Active on unit. social with peers. attending groups. pt reports he is starting to feel better but continues with feeling anxious and depressed; Seroquel increased to 200mg PO bedtime, per his previous medication regimen. Pt reports chronic suicidal ideation without plan or intent. He reports chronic auditory hallucinations telling him to leave the unit. denies HI/VH. DC CIWA; no longer scoring or having withdrawal symptoms. Patient reports he is interested in a referral to respite; social science research assistant aware. 05/10: pt reports feeling pretty good because of the medications ; Pt reports chronic suicidal ideation without plan or intent. He reports chronic auditory hallucinations. denies HI/VH. Patient stated, the meds make me feel relaxed ; observed laughing and joking with peers and staff. Patient educated on: diagnosis, medication risk/benefits and therapeutic strategies Reason for continued inpatient stay Substantial Risk for: med/psych decompensation Time Spent With Patient Time: Total time managing care of this patient today _20___ minutes.
--- NOTE | 2025-05-10 11:52 | HO.ADDICTCON ---
History of Present Illness Date of Service: 05/10/2025 Chief Complaint: SI Reason for Consult: AUD -LESLIE eval Sources of Information: patient interviewed and chart reviewed HPI Narrative: Patient is a 45 year old male with history of AUD and Bipolar disorder admitted to unit. Consult requested as patient reported wanting to re-start LESLIE--vivitrol. Patient seen on M3. He is awake, alert, engaged in interview. Somewhat challenging to obtain substance use history as he was quite tangential, but overall responded well to redirection. He reports long history of AUD, with periods of abstinence. Unclear if he has ever had ATS admissions, as he said yes, then referenced his admissions to [facility]. Reports history of cocaine use. Denies any other substance use. UDS at admission +thc only EtoH 190 Denies any withdrawal sx. States he only drank to be admitted to the hospital. Reports his drinking is more episodic/binging He would like to restart vivitrol. Reports receiving 2 injections in 2019 and found them very helpful in addressing cravings Past Psychiatric History: IP: Several at [facility]. Report this is his 5th admission here. First time on M3. OP: Used to have provider at [facility]psych[facility]; Jitendra Davalos. However, not currently. Not seeing Psychiatrist/therapist more than a year. Trials: Been taking Seroquel and Ambien from this dad. Not current prescribed. Review of Systems Constitutional: Reports as per HPI and Reports no additional constitutional complaints Diagnostics Vital Signs (24Hr): Vital Signs - 24 hr 05/09/25 18:55 05/10/25 07:51 Temperature 97.8 F 97.7 F Pulse Rate 97 70 Respiratory Rate 17 18 Blood Pressure 133/87 150/76 H Pulse Oximetry 99 98 Oxygen Delivery Method Room Air Room Air BMI result Body Mass Index 32.9 Labs 05/06/25 00:11 05/08/25 07:59 Mental Status Exam Mental Status Exam Patient Appearance: Well Grooomed and Appropriate Level of Consciousness: Awake, Appropriate and Alert Patient Behavior: Appropriate and Talkative Affect Description: Calm Speech Pattern: Clear Hallucinations: None Thought Process: Intact Thought Content: positive for Circumstantial and positive for Tangential Judgement: Good Medications Medications Current Medications Acetaminophen (Acetaminophen 325 Mg Tablet) 650 mg PO Q6H PRN PRN Reason: Headache/Pain, Scale 1-10 Last Admin: 05/09/25 18:48 Dose: 650 mg Al Hydroxide/Mg Hydroxide (Magnesium Hydrox/Alum Hydrox 30 Ml Oral.Susp) 30 ml PO Q6H PRN PRN Reason: Heartburn/Nausea Aspirin (Aspirin Enteric Coated 81 Mg Tablet.Dr) 81 mg PO DAILY [facility] Last Admin: 05/10/25 08:22 Dose: 81 mg Atorvastatin Calcium (Atorvastatin Calcium 40 Mg Tablet) 40 mg PO BEDTIME [facility] Last Admin: 05/09/25 21:36 Dose: 40 mg Hydroxyzine HCl (Hydroxyzine Hcl 25 Mg Tablet) 25 mg PO Q6H PRN PRN Reason: mild anxiety Last Admin: 05/09/25 15:31 Dose: 25 mg Magnesium Hydroxide (Milk Of Magnesia 30 Ml Oral.Susp) 30 ml PO DAILY PRN PRN Reason: Constipation Naltrexone HCl (Naltrexone Hcl 50 Mg Tablet) 50 mg PO DAILY [facility] Last Admin: 05/10/25 10:48 Dose: 50 mg Nicotine Polacrilex (Nicotine Polacrilex 2 Mg Gum) 4 mg BUCCAL Q2H PRN PRN Reason: Nicotine Cravings Quetiapine Fumarate (Quetiapine Fumarate 25 Mg Tablet) 25 mg PO BID PRN PRN Reason: agitation/psychosis Last Admin: 05/09/25 23:28 Dose: 25 mg Quetiapine Fumarate (Quetiapine Fumarate 200 Mg Tablet) 200 mg PO BEDTIME [facility] Last Admin: 05/09/25 21:36 Dose: 200 mg Trazodone HCl (Trazodone Hcl 50 Mg Tablet) 50 mg PO BEDTIME MRX1 PRN PRN Reason: Insomnia Last Admin: 05/09/25 23:28 Dose: 50 mg Allergies Allergies Allergy/AdvReac Type Severity Reaction Status Date / Time No Known Allergies (No Known Allergy Verified 05/05/25 23:52 Allergies*) Assessment & Plan Assessment & Plan (1) Alcohol use disorder, moderate, dependence: Status: Acute Code(s): F10.20 - Alcohol dependence, uncomplicated Assessment and Plan: naltrexone 50mg QD referral to provider at discharge for continuation of treatment and injection no additional follow up indicated at this time Total time managing care of this patient today ____ minutes. PMFSH Past Medical History Medical History Schizophrenia Bipolar 1 disorder Family History Family History Father Anxiety Mother Diabetes High blood pressure Social History Social History Household Members: Family Housing: Apartment Do you presently have visiting nurse or other home services: No Alcohol intake: current Alcohol intake frequency: holidays/special occasions only Patient Tobacco Use Status: Never used Tobacco Cigarette Packs Per Day: 1 Cigarettes Per Day: 20.0 Years Smoked: since age 9 Smoked in Last 30 Days: No Second Hand Smoke Exposure: Yes Use of substances other than those prescribed or required for medical reasons: No Substance Use Type: Crack/Cocaine and Marijuana Currently Displaying Signs/Symptoms of Drug Intoxication Withdrawal: No Have you been hit, kicked, punched, or otherwise hurt by someone within the past year? If so, by whom?: No Do you feel safe in your current relationship?: No Current Relationship Is there a partner from a previous relationship who is making you feel unsafe now?: No Are you made to feel afraid or neglected: No [employer]ae[employer] Healthcare Practices: [facility] Advance Directives: No Advance Directives Information Provided: No Do you have thoughts of harming others: None Do you have a plan to hurt others: No Plan Recently lost weight without trying: No How much weight loss: Not applicable Eating poorly because of decreased appetite: No Nutrition screen score: 0 Nutrition Risks: No Nutritional Risk Poor oral hygiene: No service: No Sexual orientation: Straight/Heterosexual
[2025-05-10 19:22] VITALS: BP 145/76; PULSE 105; RESP 16; TEMP 36.9; O2SAT 98
[2025-05-10] MEDS: Magnesium Hydrox/Alum Hydrox 30 ML ORAL.SUSP PO (23:36)
[2025-05-11 07:46] VITALS: BP 131/90; PULSE 100; RESP 24; TEMP 36.3; O2SAT 97
[2025-05-11] MEDS: Aspirin Enteric Coated 81 MG TABLET.DR PO (08:28)
--- NOTE | 2025-05-11 09:22 | HO.PSYCHPN ---
Subjective Subjective Date of Service: 05/11/25 Reason For Visit: SI Subjective Notes: Conditional Voluntary Interim History: Active on unit. observed laughing and joking with peers and staff. pt reports feeling the same as yesterday ; pt stated, I'm just waiting to see if I get accepted into respite or a program. Pt continues to report chronic suicidal ideation without plan or intent. He reports chronic auditory hallucinations. denies HI/VH. Medication Compliance: Yes Side effects from medications: No Attending Groups: Yes Mental Status Exam Mental Status Exam Narrative: Pt is alert and oriented; behavior is cooperative, and calm; dressed in casual attire; mood is described as getting better ; eye contact appropriate; Speech is normal rate, volume and not pressured; thought process is organized and goal directed; Thought content is on tx; denies HI/VH. He reports chronic SI with no plan/intent. Chronic auditory hallucinations. Diagnostics Vital Signs (24Hr): Vital Signs - 24 hr 05/10/25 19:22 05/11/25 07:46 Temperature 98.5 F 97.4 F Pulse Rate 105 H 100 Respiratory Rate 16 24 H Blood Pressure 145/76 H 131/90 H Pulse Oximetry 98 97 Oxygen Delivery Method Room Air Room Air BMI result Body Mass Index 32.9 Labs 05/06/25 00:11 05/08/25 07:59 Medications Medications Current Medications Acetaminophen (Acetaminophen 325 Mg Tablet) 650 mg PO Q6H PRN PRN Reason: Headache/Pain, Scale 1-10 Last Admin: 05/09/25 18:48 Dose: 650 mg Al Hydroxide/Mg Hydroxide (Magnesium Hydrox/Alum Hydrox 30 Ml Oral.Susp) 30 ml PO Q6H PRN PRN Reason: Heartburn/Nausea Last Admin: 05/10/25 23:36 Dose: 30 ml Aspirin (Aspirin Enteric Coated 81 Mg Tablet.) 81 mg PO DAILY [facility] Last Admin: 05/11/25 08:28 Dose: 81 mg Atorvastatin Calcium (Atorvastatin Calcium 40 Mg Tablet) 40 mg PO BEDTIME [facility] Last Admin: 05/10/25 22:50 Dose: 40 mg Hydroxyzine HCl (Hydroxyzine Hcl 25 Mg Tablet) 25 mg PO Q6H PRN PRN Reason: mild anxiety Last Admin: 05/10/25 20:35 Dose: 25 mg Magnesium Hydroxide (Milk Of Magnesia 30 Ml Oral.Susp) 30 ml PO DAILY PRN PRN Reason: Constipation Naltrexone HCl (Naltrexone Hcl 50 Mg Tablet) 50 mg PO DAILY [facility] Last Admin: 05/11/25 08:28 Dose: 50 mg Nicotine Polacrilex (Nicotine Polacrilex 2 Mg Gum) 4 mg BUCCAL Q2H PRN PRN Reason: Nicotine Cravings Quetiapine Fumarate (Quetiapine Fumarate 25 Mg Tablet) 25 mg PO BID PRN PRN Reason: agitation/psychosis Last Admin: 05/10/25 21:56 Dose: 25 mg Quetiapine Fumarate (Quetiapine Fumarate 200 Mg Tablet) 200 mg PO BEDTIME [facility] Last Admin: 05/10/25 22:50 Dose: 200 mg Trazodone HCl (Trazodone Hcl 50 Mg Tablet) 50 mg PO BEDTIME MRX1 PRN PRN Reason: Insomnia Last Admin: 05/10/25 22:50 Dose: 50 mg Allergies Allergies Allergy/AdvReac Type Severity Reaction Status Date / Time No Known Allergies (No Known Allergy Verified 05/05/25 23:52 Allergies*) Assessment & Plan Assessment & Plan (1) Alcohol use disorder, moderate, dependence: Status: Acute Code(s): F10.20 - Alcohol dependence, uncomplicated Assessment and Plan: naltrexone 50mg QD referral to provider at discharge for continuation of treatment and injection no additional follow up indicated at this time (2) Bipolar 1 disorder: Status: Acute Code(s): F31.9 - Bipolar disorder, unspecified Plan Patient is a 45 years old single bilingual male with history of schizophrenic who self presented to ED reporting SI and worsening depression. Formulation/clinical reasoning: No medication x1 year, here and there taking his dad Ambien and Seroquel. No outpatient providers or therapist, occasionally seen by PCP at [facility]. Increased depression, anxiety.? Manic episode/racing thoughts. Increased suicidal thoughts, experience AVH/CAH. Also reports paranoid, tangential, rumination. History of bipolar type 1, and schizophrenic. Given the above information, patient could be benefit in restrictive environment for his own safety, medication management, and refer to outpatient psychiatry services as aftercare the discharge. Plan: Patient on 15 minute checks for safety. Admitted to M5. CV. Work with treatment team to do collateral or/and CSS/CCS if possible for aftercare. Refer to patient to beauty specialist for alcohol use: pending result. Will place patient on CIWA protocol with PRN Ativan d/t drinking hx: Drinking 12 beers 2 to 3 times a week. Last drink was prior to coming to the hospital. BAL was 190. 05/07/25: Appeared to having some mild to moderate manic behavior with substance use, tangential, rumination, inconsistent with reports. We will leave it to attending to discussed with patient regarding mood stabilizer, and he has never been on mood stabilizer before herself reports. Start patient on Seroquel 100 at bedtime for mood Seroquel 12.5 mg b.i.d. 0900 and 1500 severe anxiety. Seroquel 25 mg b.i.d. p.r.n. for agitation. Hydroxyzine and trazodone p.r.n. for anxiety and insomnia. 05/08: Active on unit. social with peers. attending groups. pt reports feeling anxious d/t stressing out about having strokes . Pt stated, I'm worried about going out there and relapsing. I was sober for 2 months but the stress made me relapse on alcohol . Pt reports chronic suicidal ideation but states he would not act on these thoughts d/t his son. Pt stated, my kid keeps me going . Pt reports he has not been taking his psychiatric medications for the past year d/t insurance problems. He reports chronic auditory hallucinations that tell him to leave the unit. Pt reports previous psychiatric medications being helpful. denies HI/VH. Pt stated, I don't want to leave until I feel stable . Continue current tx plan. 05/09: Active on unit. social with peers. attending groups. pt reports he is starting to feel better but continues with feeling anxious and depressed; Seroquel increased to 200mg PO bedtime, per his previous medication regimen. Pt reports chronic suicidal ideation without plan or intent. He reports chronic auditory hallucinations telling him to leave the unit. denies HI/VH. DC CIWA; no longer scoring or having withdrawal symptoms. Patient reports he is interested in a referral to respite; social work professor aware. 05/10: pt reports feeling pretty good because of the medications ; Pt reports chronic suicidal ideation without plan or intent. He reports chronic auditory hallucinations. denies HI/VH. Patient stated, the meds make me feel relaxed ; observed laughing and joking with peers and staff. 05/11: Active on unit. observed laughing and joking with peers and staff. pt reports feeling the same as yesterday ; pt stated, I'm just waiting to see if I get accepted into respite or a program. Pt continues to report chronic suicidal ideation without plan or intent. He reports chronic auditory hallucinations. denies HI/VH. Patient educated on: diagnosis, medication risk/benefits and therapeutic strategies Reason for continued inpatient stay Substantial Risk for: med/psych decompensation Time Spent With Patient Time: Total time managing care of this patient today __20__ minutes.
[2025-05-11 20:00] VITALS: BP 155/93; PULSE 98; RESP 16; TEMP 36.3; O2SAT 98
[2025-05-12 07:25] VITALS: BP 118/65; PULSE 65; RESP 18; TEMP 36.3; O2SAT 99
--- NOTE | 2025-05-12 07:53 | HO.PSYCHPN ---
Subjective Subjective Date of Service: 05/12/25 Reason For Visit: SI Subjective Notes: Conditional Voluntary Interim History: irritable. Anxious intermittently. Frustrated around Seroquel regimen and clarified 50 mg morning, 100 mg as needed in the afternoon, 150 mg at bedtime 150 mg as needed. Reports being year for discharge and that he prefers to live alone because other people annoy him. chronic auditory hallucinations. Denies suicidal thoughts. Intermittently in the milieu. Appetite good. Medication Compliance: Yes Side effects from medications: No Attending Groups: Intermittent Review of Systems Review of Systems Unremarkable Mental Status Exam Mental Status Exam Narrative: Pt is alert and oriented; behavior is cooperative, and calm; dressed in casual attire; mood is described as ok; eye contact appropriate; Speech is normal rate, volume and not pressured; thought process is organized and goal directed; Thought content is on tx; denies HI/VH. He reports chronic SI with no plan/intent. Chronic auditory hallucinations. Diagnostics Vital Signs (24Hr): Vital Signs - 24 hr 05/11/25 20:00 Temperature 97.4 F Pulse Rate 98 Respiratory Rate 16 Blood Pressure 155/93 H Pulse Oximetry 98 Oxygen Delivery Method Room Air BMI result Body Mass Index 32.9 Labs 05/06/25 00:11 05/08/25 07:59 Medications Medications Current Medications Acetaminophen (Acetaminophen 325 Mg Tablet) 650 mg PO Q6H PRN PRN Reason: Headache/Pain, Scale 1-10 Last Admin: 05/09/25 18:48 Dose: 650 mg Al Hydroxide/Mg Hydroxide (Magnesium Hydrox/Alum Hydrox 30 Ml Oral.Susp) 30 ml PO Q6H PRN PRN Reason: Heartburn/Nausea Last Admin: 05/10/25 23:36 Dose: 30 ml Aspirin (Aspirin Enteric Coated 81 Mg Tablet.) 81 mg PO DAILY [facility] Last Admin: 05/11/25 08:28 Dose: 81 mg Atorvastatin Calcium (Atorvastatin Calcium 40 Mg Tablet) 40 mg PO BEDTIME [facility] Last Admin: 05/11/25 22:54 Dose: 40 mg Hydroxyzine HCl (Hydroxyzine Hcl 25 Mg Tablet) 25 mg PO Q6H PRN PRN Reason: mild anxiety Last Admin: 05/11/25 22:55 Dose: 25 mg Magnesium Hydroxide (Milk Of Magnesia 30 Ml Oral.Susp) 30 ml PO DAILY PRN PRN Reason: Constipation Naltrexone HCl (Naltrexone Hcl 50 Mg Tablet) 50 mg PO DAILY [facility] Last Admin: 05/11/25 08:28 Dose: 50 mg Nicotine Polacrilex (Nicotine Polacrilex 2 Mg Gum) 4 mg BUCCAL Q2H PRN PRN Reason: Nicotine Cravings Quetiapine Fumarate (Quetiapine Fumarate 25 Mg Tablet) 25 mg PO BID PRN PRN Reason: agitation/psychosis Last Admin: 05/11/25 11:14 Dose: 25 mg Quetiapine Fumarate (Quetiapine Fumarate 200 Mg Tablet) 200 mg PO BEDTIME [facility] Last Admin: 05/11/25 22:55 Dose: 200 mg Trazodone HCl (Trazodone Hcl 50 Mg Tablet) 50 mg PO BEDTIME MRX1 PRN PRN Reason: Insomnia Last Admin: 05/10/25 22:50 Dose: 50 mg Allergies Allergies Allergy/AdvReac Type Severity Reaction Status Date / Time No Known Allergies (No Known Allergy Verified 05/05/25 23:52 Allergies*) Assessment & Plan Assessment & Plan (1) Alcohol use disorder, moderate, dependence: Status: Acute Code(s): F10.20 - Alcohol dependence, uncomplicated Assessment and Plan: naltrexone 50mg QD referral to provider at discharge for continuation of treatment and injection no additional follow up indicated at this time (2) Bipolar 1 disorder: Status: Acute Code(s): F31.9 - Bipolar disorder, unspecified Plan Patient is a 45 years old single bilingual male with history of schizophrenic who self presented to ED reporting SI and worsening depression. Formulation/clinical reasoning: No medication x1 year, here and there taking his dad Ambien and Seroquel. No outpatient providers or therapist, occasionally seen by PCP at [facility]. Increased depression, anxiety.? Manic episode/racing thoughts. Increased suicidal thoughts, experience AVH/CAH. Also reports paranoid, tangential, rumination. History of bipolar type 1, and schizophrenic. Given the above information, patient could be benefit in restrictive environment for his own safety, medication management, and refer to outpatient psychiatry services as aftercare the discharge. Plan: Patient on 15 minute checks for safety. Admitted to . CV. Work with treatment team to do collateral or/and CSS/CCS if possible for aftercare. Refer to patient to training and development specialist for alcohol use: pending result. Will place patient on CIWA protocol with PRN Ativan d/t drinking hx: Drinking 12 beers 2 to 3 times a week. Last drink was prior to coming to the hospital. BAL was 190. 05/07/25: Appeared to having some mild to moderate manic behavior with substance use, tangential, rumination, inconsistent with reports. We will leave it to attending to discussed with patient regarding mood stabilizer, and he has never been on mood stabilizer before herself reports. Start patient on Seroquel 100 at bedtime for mood Seroquel 12.5 mg b.i.d. 0900 and 1500 severe anxiety. Seroquel 25 mg b.i.d. p.r.n. for agitation. Hydroxyzine and trazodone p.r.n. for anxiety and insomnia. 05/08: Active on unit. social with peers. attending groups. pt reports feeling anxious d/t stressing out about having strokes . Pt stated, I'm worried about going out there and relapsing. I was sober for 2 months but the stress made me relapse on alcohol . Pt reports chronic suicidal ideation but states he would not act on these thoughts d/t his son. Pt stated, my kid keeps me going . Pt reports he has not been taking his psychiatric medications for the past year d/t insurance problems. He reports chronic auditory hallucinations that tell him to leave the unit. Pt reports previous psychiatric medications being helpful. denies HI/VH. Pt stated, I don't want to leave until I feel stable . Continue current tx plan. 05/09: Active on unit. social with peers. attending groups. pt reports he is starting to feel better but continues with feeling anxious and depressed; Seroquel increased to 200mg PO bedtime, per his previous medication regimen. Pt reports chronic suicidal ideation without plan or intent. He reports chronic auditory hallucinations telling him to leave the unit. denies HI/VH. DC CIWA; no longer scoring or having withdrawal symptoms. Patient reports he is interested in a referral to respite; social science manager aware. 05/10: pt reports feeling pretty good because of the medications ; Pt reports chronic suicidal ideation without plan or intent. He reports chronic auditory hallucinations. denies HI/VH. Patient stated, the meds make me feel relaxed ; observed laughing and joking with peers and staff. 05/11: Active on unit. observed laughing and joking with peers and staff. pt reports feeling the same as yesterday ; pt stated, I'm just waiting to see if I get accepted into respite or a program. Pt continues to report chronic suicidal ideation without plan or intent. He reports chronic auditory hallucinations. denies HI/VH. 05/12/2025: Seroquel regimen and clarified 50 mg morning, 100 mg as needed in the afternoon, 150 mg at bedtime 150 mg as needed. Reason for continued inpatient stay Substantial Risk for: rapid decompensation Time Spent With Patient Time: Total time managing care of this patient today ____ minutes.
[2025-05-12] MEDS: Aspirin Enteric Coated 81 MG TABLET.DR PO (08:54)
[2025-05-12 18:23] VITALS: BP 132/97; PULSE 122; RESP 18; O2SAT 94
--- NOTE | 2025-05-12 18:25 | PC.NURSE ---
Pt reported I feel like I'm having a stroke. Vitals assessed, 132/97 HR 122 O2 94%. Pt reported numbness/tingling in right arm and mouth. Pt was able to extend his arms and smile symmetrically. No slurred speech observed. Pt denied chest pain and nausea. Provider notified.
[2025-05-12 20:00] VITALS: BP 127/91; PULSE 100; RESP 18; TEMP 36.2; O2SAT 97
[2025-05-12] MEDS: Lidocaine 4 % Patch ADH..PATCH 1 PATCH TRANSDERMA (22:38)
[2025-05-13 07:10] VITALS: BP 112/67; PULSE 64; RESP 16; TEMP 35.9; O2SAT 95
[2025-05-13] MEDS: Aspirin Enteric Coated 81 MG TABLET.DR PO (08:57)
--- NOTE | 2025-05-13 10:27 | HO.PSYCHPN ---
Subjective Subjective Date of Service: 05/13/25 Reason For Visit: SI Interim History: Less irritable today. In Milieu with peers. Reports seroquel dosing is helpful and satisfied with same. Was asking why he cannot have ambien but others on the unit can and wants to discuss this with his team tomorrow. Sleep better as room mate left room yesterday. Otherwise intermittent anxiety, chronic auditory hallucinations. Medication Compliance: Yes Side effects from medications: No Attending Groups: Intermittent Review of Systems Acute medical concerns: No Review of Systems Review of Systems Unremarkable Mental Status Exam Mental Status Exam Narrative: Pt is alert and oriented; behavior is cooperative, and calm; dressed in casual attire; mood is described as fine eye contact appropriate; Speech is normal rate, volume and not pressured; thought process is organized and goal directed; Thought content is on tx; denies HI/VH. He reports chronic SI with no plan/intent. Chronic auditory hallucinations. Diagnostics Vital Signs (24Hr): Vital Signs - 24 hr 05/12/25 18:23 05/12/25 20:00 05/13/25 07:10 Temperature 97.1 F 96.6 F L Pulse Rate 122 H 100 64 Respiratory Rate 18 18 16 Blood Pressure 132/97 H 127/91 H 112/67 Pulse Oximetry 94 97 95 Oxygen Delivery Method Room Air Room Air BMI result Body Mass Index 32.9 Labs 05/06/25 00:11 05/08/25 07:59 Medications Medications Current Medications Acetaminophen (Acetaminophen 325 Mg Tablet) 650 mg PO Q6H PRN PRN Reason: Headache/Pain, Scale 1-10 Last Admin: 05/09/25 18:48 Dose: 650 mg Al Hydroxide/Mg Hydroxide (Magnesium Hydrox/Alum Hydrox 30 Ml Oral.Susp) 30 ml PO Q6H PRN PRN Reason: Heartburn/Nausea Last Admin: 05/10/25 23:36 Dose: 30 ml Aspirin (Aspirin Enteric Coated 81 Mg Tablet.Dr) 81 mg PO DAILY [facility] Last Admin: 05/13/25 08:57 Dose: 81 mg Atorvastatin Calcium (Atorvastatin Calcium 40 Mg Tablet) 40 mg PO BEDTIME [facility] Last Admin: 05/12/25 22:37 Dose: 40 mg Hydroxyzine HCl (Hydroxyzine Hcl 25 Mg Tablet) 25 mg PO Q6H PRN PRN Reason: mild anxiety Last Admin: 05/12/25 18:44 Dose: 25 mg Lidocaine (Lidocaine 4 % Patch Adh..Patch) 1 patch TRANSDERMA BEDTIME [facility]; Protocol Last Admin: 05/12/25 22:38 Dose: 1 patch Magnesium Hydroxide (Milk Of Magnesia 30 Ml Oral.Susp) 30 ml PO DAILY PRN PRN Reason: Constipation Naltrexone HCl (Naltrexone Hcl 50 Mg Tablet) 50 mg PO DAILY [facility] Last Admin: 05/13/25 08:57 Dose: 50 mg Nicotine Polacrilex (Nicotine Polacrilex 2 Mg Gum) 4 mg BUCCAL Q2H PRN PRN Reason: Nicotine Cravings Quetiapine Fumarate (Quetiapine Fumarate 50 Mg Tablet) 150 mg PO BEDTIME [facility] Last Admin: 05/12/25 22:36 Dose: 150 mg Quetiapine Fumarate (Quetiapine Fumarate 50 Mg Tablet) 150 mg PO BEDTIME PRN PRN Reason: insomnia Last Admin: 05/12/25 22:37 Dose: 150 mg Quetiapine Fumarate (Quetiapine Fumarate 50 Mg Tablet) 50 mg PO DAILY [facility] Last Admin: 05/13/25 08:56 Dose: 50 mg Quetiapine Fumarate (Quetiapine Fumarate 100 Mg Tablet) 100 mg PO DAILY PRN PRN Reason: agitation/psychosis Last Admin: 05/12/25 15:37 Dose: 100 mg Trazodone HCl (Trazodone Hcl 50 Mg Tablet) 50 mg PO BEDTIME MRX1 PRN PRN Reason: Insomnia Last Admin: 05/10/25 22:50 Dose: 50 mg Allergies Allergies Allergy/AdvReac Type Severity Reaction Status Date / Time No Known Allergies (No Known Allergy Verified 05/05/25 23:52 Allergies*) Assessment & Plan Assessment & Plan (1) Alcohol use disorder, moderate, dependence: Status: Acute Code(s): F10.20 - Alcohol dependence, uncomplicated Assessment and Plan: naltrexone 50mg QD referral to provider at discharge for continuation of treatment and injection no additional follow up indicated at this time (2) Bipolar 1 disorder: Status: Inactive Code(s): F31.9 - Bipolar disorder, unspecified Plan Patient is a 45 years old single bilingual male with history of schizophrenic who self presented to ED reporting SI and worsening depression. Formulation/clinical reasoning: No medication x1 year, here and there taking his dad Ambien and Seroquel. No outpatient providers or therapist, occasionally seen by PCP at [facility] [place]. Increased depression, anxiety.? Manic episode/racing thoughts. Increased suicidal thoughts, experience AVH/CAH. Also reports paranoid, tangential, rumination. History of bipolar type 1, and schizophrenic. Given the above information, patient could be benefit in restrictive environment for his own safety, medication management, and refer to outpatient psychiatry services as aftercare the discharge. Plan: Patient on 15 minute checks for safety. Admitted to . CV. Work with treatment team to do collateral or/and CSS/CCS if possible for aftercare. Refer to patient to farm specialist for alcohol use: pending result. Will place patient on CIWA protocol with PRN Ativan d/t drinking hx: Drinking 12 beers 2 to 3 times a week. Last drink was prior to coming to the hospital. BAL was 190. 05/07/25: Appeared to having some mild to moderate manic behavior with substance use, tangential, rumination, inconsistent with reports. We will leave it to attending to discussed with patient regarding mood stabilizer, and he has never been on mood stabilizer before herself reports. Start patient on Seroquel 100 at bedtime for mood Seroquel 12.5 mg b.i.d. 0900 and 1500 severe anxiety. Seroquel 25 mg b.i.d. p.r.n. for agitation. Hydroxyzine and trazodone p.r.n. for anxiety and insomnia. 05/08: Active on unit. social with peers. attending groups. pt reports feeling anxious d/t stressing out about having strokes . Pt stated, I'm worried about going out there and relapsing. I was sober for 2 months but the stress made me relapse on alcohol . Pt reports chronic suicidal ideation but states he would not act on these thoughts d/t his son. Pt stated, my kid keeps me going . Pt reports he has not been taking his psychiatric medications for the past year d/t insurance problems. He reports chronic auditory hallucinations that tell him to leave the unit. Pt reports previous psychiatric medications being helpful. denies HI/VH. Pt stated, I don't want to leave until I feel stable . Continue current tx plan. 05/09: Active on unit. social with peers. attending groups. pt reports he is starting to feel better but continues with feeling anxious and depressed; Seroquel increased to 200mg PO bedtime, per his previous medication regimen. Pt reports chronic suicidal ideation without plan or intent. He reports chronic auditory hallucinations telling him to leave the unit. denies HI/VH. DC CIWA; no longer scoring or having withdrawal symptoms. Patient reports he is interested in a referral to respite; social work instructor aware. 05/10: pt reports feeling pretty good because of the medications ; Pt reports chronic suicidal ideation without plan or intent. He reports chronic auditory hallucinations. denies HI/VH. Patient stated, the meds make me feel relaxed ; observed laughing and joking with peers and staff. 05/11: Active on unit. observed laughing and joking with peers and staff. pt reports feeling the same as yesterday ; pt stated, I'm just waiting to see if I get accepted into respite or a program. Pt continues to report chronic suicidal ideation without plan or intent. He reports chronic auditory hallucinations. denies HI/VH. 05/12/2025: Seroquel regimen and clarified 50 mg morning, 100 mg as needed in the afternoon, 150 mg at bedtime 150 mg as needed. 05/13: no changes Reason for continued inpatient stay Substantial Risk for: rapid decompensation Time Spent With Patient Time: Total time managing care of this patient today ____ minutes.
[2025-05-13] MEDS: Lidocaine 4 % Patch ADH..PATCH 1 PATCH TRANSDERMA ×2 (11:21→21:44)
[2025-05-13 19:35] VITALS: BP 129/68; PULSE 87; RESP 16; TEMP 36.6; O2SAT 97
[2025-05-14 07:47] VITALS: BP 141/83; PULSE 77; RESP 16; TEMP 36.2; O2SAT 97
[2025-05-14] MEDS: Aspirin Enteric Coated 81 MG TABLET.DR PO (09:36)
--- NOTE | 2025-05-14 09:58 | P.PNPSI_ITS ---
Subjective Subjective Date of Service: 05/14/25 Reason For Visit: SI Subjective Notes: Conditional Voluntary Interim History: Active on unit. social with peers. attending groups. medication compliant. Patient reports feeling better since admission; per certified social workers in health care, pt was not accepted to respite or substance abuse program. denies HI/VH. Continues to report chronic suicidal ideation with no plan or intent and auditory hallucinations that are minimal. Patient plans on returning to his apartment and following up with outpatient providers. Medication Compliance: Yes Side effects from medications: No Attending Groups: Yes Mental Status Exam Mental Status Exam Narrative: Pt is alert and oriented; behavior is cooperative and calm; dressed in casual attire; mood is described as good ; eye contact appropriate; Speech is normal rate, volume and not pressured; thought process is organized; Thought content is on discharge; denies HI/VH. Patient continues to report chronic suicidal ideation with no plan or intent and auditory hallucinations that are minimal. Diagnostics Vital Signs (24Hr): Vital Signs - 24 hr 05/13/25 19:35 05/14/25 07:47 Temperature 97.9 F 97.1 F Pulse Rate 87 77 Respiratory Rate 16 16 Blood Pressure 129/68 141/83 H Pulse Oximetry 97 97 Oxygen Delivery Method Room Air Room Air BMI result Body Mass Index 32.9 Labs 05/06/25 00:11 05/08/25 07:59 Medications Medications Current Medications Acetaminophen (Acetaminophen 325 Mg Tablet) 650 mg PO Q6H PRN PRN Reason: Headache/Pain, Scale 1-10 Last Admin: 05/09/25 18:48 Dose: 650 mg Al Hydroxide/Mg Hydroxide (Magnesium Hydrox/Alum Hydrox 30 Ml Oral.Susp) 30 ml PO Q6H PRN PRN Reason: Heartburn/Nausea Last Admin: 05/10/25 23:36 Dose: 30 ml Aspirin (Aspirin Enteric Coated 81 Mg Tablet.Dr) 81 mg PO DAILY [facility] Last Admin: 05/14/25 09:36 Dose: 81 mg Atorvastatin Calcium (Atorvastatin Calcium 40 Mg Tablet) 40 mg PO BEDTIME [facility] Last Admin: 05/13/25 22:10 Dose: 40 mg Hydroxyzine HCl (Hydroxyzine Hcl 25 Mg Tablet) 25 mg PO Q6H PRN PRN Reason: mild anxiety Last Admin: 05/13/25 17:43 Dose: 25 mg Lidocaine (Lidocaine 4 % Patch Adh..Patch) 1 patch TRANSDERMA BEDTIME [facility]; Protocol Last Admin: 05/13/25 21:44 Dose: 1 patch Lidocaine (Lidocaine 4 % Patch Adh..Patch) 1 patch TRANSDERMA DAILY PRN; Protocol PRN Reason: back/hip pain Last Admin: 05/13/25 11:21 Dose: 1 patch Magnesium Hydroxide (Milk Of Magnesia 30 Ml Oral.Susp) 30 ml PO DAILY PRN PRN Reason: Constipation Naltrexone HCl (Naltrexone Hcl 50 Mg Tablet) 50 mg PO DAILY [facility] Last Admin: 05/14/25 09:36 Dose: 50 mg Nicotine Polacrilex (Nicotine Polacrilex 2 Mg Gum) 4 mg BUCCAL Q2H PRN PRN Reason: Nicotine Cravings Quetiapine Fumarate (Quetiapine Fumarate 50 Mg Tablet) 150 mg PO BEDTIME [facility] Last Admin: 05/13/25 22:10 Dose: 150 mg Quetiapine Fumarate (Quetiapine Fumarate 50 Mg Tablet) 150 mg PO BEDTIME PRN PRN Reason: insomnia Last Admin: 05/12/25 22:37 Dose: 150 mg Quetiapine Fumarate (Quetiapine Fumarate 50 Mg Tablet) 50 mg PO DAILY [facility] Last Admin: 05/14/25 09:35 Dose: 50 mg Quetiapine Fumarate (Quetiapine Fumarate 100 Mg Tablet) 100 mg PO DAILY PRN PRN Reason: agitation/psychosis Last Admin: 05/13/25 11:23 Dose: 100 mg Trazodone HCl (Trazodone Hcl 50 Mg Tablet) 50 mg PO BEDTIME MRX1 PRN PRN Reason: Insomnia Last Admin: 05/10/25 22:50 Dose: 50 mg Allergies Allergies Allergy/AdvReac Type Severity Reaction Status Date / Time No Known Allergies (No Known Allergy Verified 05/05/25 23:52 Allergies*) Assessment & Plan Assessment & Plan (1) Bipolar 1 disorder: Status: Chronic Code(s): F31.9 - Bipolar disorder, unspecified (2) Alcohol use disorder, moderate, dependence: Status: Acute Code(s): F10.20 - Alcohol dependence, uncomplicated Assessment and Plan: * naltrexone 50mg QD * referral to provider at discharge for continuation of treatment and injection * no additional follow up indicated at this time Plan Patient is a 45 years old single bilingual male with history of schizophrenic who self presented to ED reporting SI and worsening depression. Formulation/clinical reasoning: No medication x1 year, here and there taking his dad Ambien and Seroquel. No outpatient providers or therapist, occasionally seen by PCP at [facility]. Increased depression, anxiety.? Manic episode/racing thoughts. Increased suicidal thoughts, experience AVH/CAH. Also reports paranoid, tangential, rumination. History of bipolar type 1, and schizophrenic. Given the above information, patient could be benefit in restrictive environment for his own safety, medication management, and refer to outpatient psychiatry services as aftercare the discharge. Plan: Patient on 15 minute checks for safety. Admitted to . CV. Work with treatment team to do collateral or/and CSS/CCS if possible for aftercare. Refer to patient to operations systems specialist for alcohol use: pending result. Will place patient on CIWA protocol with PRN Ativan d/t drinking hx: Drinking 12 beers 2 to 3 times a week. Last drink was prior to coming to the hospital. BAL was 190. 05/07/25: Appeared to having some mild to moderate manic behavior with substance use, tangential, rumination, inconsistent with reports. We will leave it to attending to discussed with patient regarding mood stabilizer, and he has never been on mood stabilizer before herself reports. Start patient on Seroquel 100 at bedtime for mood Seroquel 12.5 mg b.i.d. 0900 and 1500 severe anxiety. Seroquel 25 mg b.i.d. p.r.n. for agitation. Hydroxyzine and trazodone p.r.n. for anxiety and insomnia. 05/08: Active on unit. social with peers. attending groups. pt reports feeling anxious d/t stressing out about having strokes . Pt stated, I'm worried about going out there and relapsing. I was sober for 2 months but the stress made me relapse on alcohol . Pt reports chronic suicidal ideation but states he would not act on these thoughts d/t his son. Pt stated, my kid keeps me going . Pt reports he has not been taking his psychiatric medications for the past year d/t insurance problems. He reports chronic auditory hallucinations that tell him to leave the unit. Pt reports previous psychiatric medications being helpful. denies HI/VH. Pt stated, I don't want to leave until I feel stable . Continue current tx plan. 05/09: Active on unit. social with peers. attending groups. pt reports he is starting to feel better but continues with feeling anxious and depressed; Seroquel increased to 200mg PO bedtime, per his previous medication regimen. Pt reports chronic suicidal ideation without plan or intent. He reports chronic auditory hallucinations telling him to leave the unit. denies HI/VH. DC CIWA; no longer scoring or having withdrawal symptoms. Patient reports he is interested in a referral to respite; certified social workers in health care aware. 05/10: pt reports feeling pretty good because of the medications ; Pt reports chronic suicidal ideation without plan or intent. He reports chronic auditory hallucinations. denies HI/VH. Patient stated, the meds make me feel relaxed ; observed laughing and joking with peers and staff. 05/11: Active on unit. observed laughing and joking with peers and staff. pt reports feeling the same as yesterday ; pt stated, I'm just waiting to see if I get accepted into respite or a program. Pt continues to report chronic suicidal ideation without plan or intent. He reports chronic auditory hallucinations. denies HI/VH. 05/12/2025: Seroquel regimen and clarified 50 mg morning, 100 mg as needed in the afternoon, 150 mg at bedtime 150 mg as needed. 05/13: no changes 05/14: Active on unit. social with peers. attending groups. medication compliant. Patient reports feeling better since admission; per certified social workers in health care, pt was not accepted to respite or substance abuse program. denies HI/VH. Continues to report chronic suicidal ideation with no plan or intent and auditory hallucinations that are minimal. Patient plans on returning to his apartment and following up with outpatient providers. Patient educated on: diagnosis and medication risk/benefits Reason for continued inpatient stay Substantial Risk for: stable for discharge Time Spent With Patient Time: Total time managing care of this patient today _20___ minutes.
[2025-05-14 19:55] VITALS: BP 137/91; PULSE 81; RESP 18; TEMP 36.7; O2SAT 97
[2025-05-15 07:57] VITALS: BP 125/90; PULSE 78; RESP 16; TEMP 36.3; O2SAT 97
[2025-05-15] MEDS: Naloxone HCl Nasal TAKE HOME 4 MG SPRAY 8 MG NOSTRILALT (08:06)
--- NOTE | 2025-05-15 09:29 | P.DS_ITS ---
DS: Providers Provider Date of Service: 05/15/25 Date of admission: 05/07/25 15:17 Date of discharge: 05/15/25 Primary care physician: Jaime Hackett MD Admitting clinician: Kaylee Benson Attending physician on admission: Raulito Baez Consults: 05/07/25 18:16 Addiction Medicine Provider Routine Consulting Provider: Addiction Covering Reason for consultation: Dayan NELSON Has provider been notified: No Attending physician on discharge: Raulito Baez Discharging clinician: Annetta Hall DS: Diagnosis Discharge Diagnosis (1) Bipolar 1 disorder: Status: Chronic (2) Alcohol use disorder, moderate, dependence: Status: Acute DS: Medications Discharge Medications Home Medications: Previous Rx's ?Medication ?Instructions ?Recorded aspirin 81 mg tablet,delayed 81 mg PO DAILY 30 days #3 0 tabs 05/14/25 release atorvastatin 40 mg tablet 40 mg PO BEDTIME 30 days #30 tabs 05/14/25 hydroxyzine HCl 25 mg tablet 25 mg PO BID PRN mild anx iety 30 05/14/25 days #60 tabs lidocaine 4 % topical patch 1 patch transdermal BEDTIM E 5 days 05/14/25 (Lidocaine Pain Relief) #5 ea naltrexone 50 mg tablet 50 mg PO DAILY 30 days #30 t abs 05/14/25 quetiapine 100 mg tablet 100 mg PO DAILY PRN 05/14/25 agitation/psychosis 30 days #30 tabs quetiapine 150 mg tablet 150 mg PO BEDTIME 30 days #3 0 tabs 05/14/25 quetiapine 50 mg tablet 50 mg PO DAILY 30 days #30 t abs 05/14/25 Mental Status Exam Mental Status Exam Narrative: Pt is alert and oriented; behavior is cooperative and calm; dressed in casual attire; mood is described as good ; eye contact appropriate; Speech is normal rate, volume and not pressured; thought process is organized; Thought content is on discharge; denies HI/VH. Patient continues to report chronic suicidal ideation with no plan or intent and auditory hallucinations that are minimal. DS: Summary Hospital Course Hospital Course: Per care team note: Patient is a 45 years old single bilingual male with history of schizophrenic who self presented to ED reporting SI and worsening depression. On M3: Patient reports that he came to the hospital having stroke . Reported he has for strokes in the past couple of months, with less strokes was on last . He was discharged, and re-presented. He does not want to drink and do bad stuff outside. He requests to be admitted here. He comfortable with and requests to be transferred upstairs on admission. However he eventually he becomes less anxious, settle down, and do not replace to be transfered to . He spent a long time talking about his symptoms of stroke prior to be admitted. He denies suicidal thoughts at this current time/denies SIB/ denies HI/denies AVH. However reports that he always having suicidal thoughts, denies plan or intention to harm himself. Reports history of cut, last cut was when he was 13 years old. He shows some scars on the knees from cutting. He also reportx hx of head banging. Reported that he usually experiences command hallucination telling me to hurt myself or jump [place] the [place] . Also reports history of seeing shadow However he thought it is d/t his eye vision. Reports he last hearing voices was on Wednesday when he was at home. He does not appear to be psychotic, do not make any delusional statement. However, he reported that he feel paranoid, at home as he wants to make sure everyone's going to sleep first before he can sleep. He is tangential, hyperverbal. Reports mood is sad but happy to able to get help . Reports anxiety and depression lately is like 20/10 . Goal-directed: He wants to get better and stay away from drugs. Housing issues: He spent a lot of money on cocaine causing financial problem that he was not able to pay the bill. Reported that he has some housing issue with the landlord, went to court, and he needs to move soon to a new place- having section 8. Inconsistent with the reports. He requests to have Vivitrol IM for his alcohol. He do not appear to be withdrawal from anything but reports drinking alcohol 2 to 3 times a week with 12 beers. Smoke a lot of marijuana, and use cocaine. Has been stopped using cocaine the past 3-4 months. Formulation/clinical reasoning: No medication x1 year, here and there taking his dad Ambien and Seroquel. No outpatient providers or therapist, occasionally seen by PCP at [facility]. Increased depression, anxiety.? Manic episode/racing thoughts. Increased suicidal thoughts, experience AVH/CAH. Also reports paranoid, tangential, rumination. History of bipolar type 1, and schizophrenic. Given the above information, patient could be benefit in restrictive environment for his own safety, medication management, and refer to outpatient psychiatry services as aftercare the discharge. Plan Patient on 15 minute checks for safety. Admitted to M5. CV. Work with treatment team to do collateral or/and CSS/CCS if possible for aftercare. Refer to patient to collection support specialist for alcohol use: pending result. Will place patient on CIWA protocol with PRN Ativan d/t drinking hx: Drinking 12 beers 2 to 3 times a week. Last drink was prior to coming to the hospital. BAL was 190. Appeared to having some mild to moderate manic behavior with substance use, tangential, rumination, inconsistent with reports. We will leave it to attending to discussed with patient regarding mood stabilizer, and he has never been on mood stabilizer before herself reports. Start patient on Seroquel 100 at bedtime for mood Seroquel 12.5 mg b.i.d. 0900 and 1500 severe anxiety. Seroquel 25 mg b.i.d. p.r.n. for agitation. Hydroxyzine and trazodone p.r.n. for anxiety and insomnia. Active on unit. social with peers. attending groups. pt reports feeling anxious d/t stressing out about having strokes . Pt stated, I'm worried about going out there and relapsing. I was sober for 2 months but the stress made me relapse on alcohol . Pt reports chronic suicidal ideation but states he would not act on these thoughts d/t his son. Pt stated, my kid keeps me going . Pt reports he has not been taking his psychiatric medications for the past year d/t insurance problems. He reports chronic auditory hallucinations that tell him to leave the unit. Pt reports previous psychiatric medications being helpful. denies HI/VH. Pt stated, I don't want to leave until I feel stable . Continue current tx plan. Active on unit. social with peers. attending groups. pt reports he is starting to feel better but continues with feeling anxious and depressed; Seroquel increased to 200mg PO bedtime, per his previous medication regimen. Pt reports chronic suicidal ideation without plan or intent. He reports chronic auditory hallucinations telling him to leave the unit. denies HI/VH. DC CIWA; no longer scoring or having withdrawal symptoms. Patient reports he is interested in a referral to respite; secondary social studies teacher aware. pt reports feeling pretty good because of the medications ; Pt reports chronic suicidal ideation without plan or intent. He reports chronic auditory hallucinations. denies HI/VH. Patient stated, the meds make me feel relaxed ; observed laughing and joking with peers and staff. Active on unit. observed laughing and joking with peers and staff. pt reports feeling the same as yesterday ; pt stated, I'm just waiting to see if I get accepted into respite or a program. Pt continues to report chronic suicidal ideation without plan or intent. He reports chronic auditory hallucinations. denies HI/VH. Seroquel regimen and clarified 50 mg morning, 100 mg as needed in the afternoon, 150 mg at bedtime 150 mg as needed. Active on unit. social with peers. attending groups. medication compliant. Patient reports feeling better since admission; per secondary social studies teacher, pt was not accepted to respite or substance abuse program. denies HI/VH. Continues to report chronic suicidal ideation with no plan or intent and auditory hallucinations that are minimal. Patient plans on returning to his apartment and following up with outpatient providers. Status at Discharge Cognitive/behavioral status at discharge: Patient has insight and demonstrates good judgment in terms of wanting to pursue treatment. Patient has a safety plan that includes presenting to the closest ER or calling 911 if feeling unsafe. Functional status at discharge: independent ambulation Overall status at discharge: patient is back to baseline Time Spent with Patient Time attestation: Total time managing care of this patient today _20___ minutes. Time spent: Less than 30 minutes Discharge Plan Discharge Anticipated Discharge Date/Time: 05/15/25 10:00 Patient Disposition: Home, Self-Care Discharge Diagnosis: Bipolar d/o, Alcohol use d/o, Cocaine use d/o Referrals: [facility] [Other] - 1 Week Referral Note: WALK IN HOURS ARE WEDNESDAY-WEDNESDAY 8AM-8PM BRING YOUR DISCHARGE PAPERWORK, ID, AND INSURANCE CARD [facility] [Other] - 1 Week Referral Note: WALK IN HOURS ARE WEDNESDAY-WEDNESDAY 8AM-8PM [facility] [Other] - 1 Week Referral Note: has referred you for outpatient services through [facility]. They should call you to inform you of your upcoming appointments. Jaime Hackett MD [Primary Care Provider, Internal Medicine] - 1 Week Referral Note: 05-14-25 Your listed Primary Care Provider stated that you are no longer a patient of theirs as you haven't been seen since 2020 and will need to re-establish yourself as a patient. Please contact your primary care provider to schedule a follow up appt within 7-10 days of discharge. Discharge Medications: New lidocaine [Lidocaine Pain Relief] 4 % Adhesive Patch,Medicated 1 patch transdermal BEDTIME 5 Days Qty: 5 0RF Protocol: Apply to: Apply to: Back quetiapine 50 mg Tablet 50 mg PO DAILY 30 Days Qty: 30 0RF quetiapine 150 mg tablet 150 mg PO BEDTIME 30 Days Qty: 30 0RF naltrexone 50 mg Tablet 50 mg PO DAILY 30 Days Qty: 30 0RF quetiapine 100 mg Tablet 100 mg PO DAILY PRN (Reason: agitation/psychosis) 30 Days Qty: 30 0RF hydroxyzine HCl 25 mg Tablet 25 mg PO BID PRN (Reason: mild anxiety) 30 Days Qty: 60 0RF Continued atorvastatin 40 mg Tablet 40 mg PO BEDTIME 30 Days Qty: 30 0RF aspirin 81 mg Tablet,Delayed Release (Dr/Ec) 81 mg PO DAILY 30 Days Qty: 30 0RF Discharge Orders: Discharge Order (Routine); Ordered 05/15/25 Ordered By: Annetta Hall Diet: Regular diet Activity on Discharge: As tolerated Stand Alone Forms: Patient Portal Discharge page, Community Support Print Language: Kosovan Care Plan Goals: Maintain mood and safe behaviors Take medications as prescribed Continue to pursue sobriety Practice coping skills Continue with outpatient providers and reach out to them as needed Health Concerns: Mood stability and behaviors Sobriety Plan of Treatment: Follow up with your PCP, psychiatric provider and other outpatient providers regarding above concerns Take medications as prescribed Assessment: Patient has insight and demonstrates good judgment in terms of wanting to pursue treatment. Patient has a safety plan that includes presenting to the closest ER or calling 911 if feeling unsafe. Discharge Date/Time: 05/15/25 09:40
== END 2025-05-15 09:40 | disposition home or self-care (01) | DRG 885 ==
LOC: HO.ED 05-06 01:02 → HO.PADLT16 05-07 15:21
PROVIDERS: Emergency Medicine; Admitting Provider Registered Nurse; Emergency Provider Emergency Medicine; PCP Internal Medicine; Responsible Provider Registered Nurse; Visit Provider Psychiatry & Neurology Psychiatry
DX: F31.9 Bipolar disorder, unspecified (principal); R45.851 Suicidal ideations; F14.90 Cocaine use, unspecified, uncomplicated; Y90.6 Blood alcohol level of 120-199 mg/100 ml; F19.10 Other psychoactive substance abuse, uncomplicated; F10.20 Alcohol dependence, uncomplicated; Z79.82 Long term (current) use of aspirin; Z79.899 Other long term (current) drug therapy
CPT/HCPCS: 36415; 80053; 80061; 80307; 81001; 83036; 84443; 85025; 99285; S9485

== ENCOUNTER → 2025-05-07 15:17 | Outpatient (BNV) | payer MEDICARE, SELFPAY | PROVIDERS: Admitting Provider Registered Nurse; Emergency Provider Emergency Medicine; PCP Internal Medicine; Responsible Provider Registered Nurse; Visit Provider Nurse Practitioner Psychiatric/Mental Health | DX: F31.4 Bipolar disorder, current episode depressed, severe, without psychotic features (principal); F10.20 Alcohol dependence, uncomplicated | CPT/HCPCS: 99231; 99232; 99238; 99499 ==

== ENCOUNTER 2025-06-13 20:32 | Emergency (ER) | payer MEDICARE, SELFPAY ==
--- NOTE | ~2025-06-13 | XR_ITS ---
CLINICAL HISTORY: fall 4 view right knee Comparison: None provided Findings: Bones intact. No dislocations. Small osteochondroma of the medial femoral condyle. No significant arthritic change or erosions. No joint effusion. No radiopaque foreign body. IMPRESSION: 1. No acute fracture. This document has been electronically signed by: Sabi Godinez MD on 06/13/2025 21:45:17
--- NOTE | ~2025-06-13 | XR_ITS ---
CLINICAL HISTORY: fall 3 view left foot Comparison: None provided Findings: Oblique lucency of the proximal 5th metatarsal. Mild hallux valgus. No ankle effusion. No radiopaque foreign body. IMPRESSION: 1. Favor subacute fracture of the 5th metatarsal base. Correlate with point tenderness. This document has been electronically signed by: Sabi Godinez MD on 06/13/2025 21:45:58
--- NOTE | ~2025-06-13 | XR_ITS ---
CLINICAL HISTORY: fall 4 view left knee Comparison: None provided Findings: Bones intact. No dislocations. No significant arthritic change or erosions. No joint effusion. No radiopaque foreign body. IMPRESSION: 1. No acute fracture. This document has been electronically signed by: Sabi Godinez MD on 06/13/2025 21:46:20
[2025-06-13 20:41] VITALS: BP 157/87; PULSE 89; RESP 16; TEMP 37.1; O2SAT 98; BMI 33.4
--- OUTSIDE RECORDS SUMMARY | 2025-06-13 21:40 | XMS_ITS | Encounter Summary ---
Author Organization [email or web address] [facility] Address [address] [place] [address] Care Team Providers Care Pilot Plant Research Technician Name Role Phone Unavailable Primary Care Provider Unavailabl e Encounter Details Date Type Department Care Team (Latest Contact Info) Description 06/13/2025 Travel Social History Tobacco Use Types Packs/Day Years Used Date Smoking Tobacco: Never Assessed Sex and Gender Information Value Date Recorded Sex Assigned at Male 07/20/2022 10:15 AM EDT Legal Sex Male 10:15 AM EDT Gender Identity Not on file Sexual Orientation Not on file documented as of this encounter Plan of Treatment Not on file documented as of this encounter Visit Diagnoses Not on filedocumented in this encounter
--- OUTSIDE RECORDS SUMMARY | 2025-06-13 21:40 | XMS_ITS | Clinical Summary ---
[facility] Organization [facility] Address [address] [place] [address] Care Team Providers Care Bead Wire Insulator Name Role Phone Unavailable Primary Care Provider Unavailabl e Social History Tobacco Use Types Packs/Day Years Used Date Smoking Tobacco: Never Assessed Sex and Gender Information Value Date Recorded Sex Assigned at Not on file Legal Sex Male 11:35 PM EST Gender Identity Not on file Sexual Orientation Not on file Plan of Treatment Health Maintenance Due Date Last Done Comments DTaP,Tdap,and Td Vaccines (1 - Tdap) 1997 Hepatitis B Vaccines (1 of 3 - 19+ 3-dose series) 1997 Depression Screening 09/20/2024 COVID-19 Vaccine (2023-2 5 season) 2025 Influenza Vaccine (#1) 2025 HIB Vaccines Aged Out No longer eligi ble based on patient's age to complete this topic HPV Vaccines Aged Out No longer eligi ble based on patient's age to complete this topic Hepatitis A Vaccines Aged Out No long er eligible based on patient's age to complete this topic IPV Vaccines Aged Out No longer eligi ble based on patient's age to complete this topic MMR Vaccines Aged Out No longer eligi ble based on patient's age to complete this topic Meningococcal ACWY Vaccine Aged Out N o longer eligible based on patient's age to complete this topic Meningococcal B Vaccine Aged Out No l onger eligible based on patient's age to complete this topic Pneumococcal Vaccine: Pediat rics (0 to 5 Years) and At-Risk Patients (6 to 49 Years) Aged Out No longer eligible b ased on patient's age to complete this topic RSV Immunization Patients Un clarita 20 months Aged Out No longer eligible b ased on patient's age to complete this topic Varicella Vaccines Aged Out No longer eligible based on patient's age to complete this topic
--- OUTSIDE RECORDS SUMMARY | 2025-06-13 21:40 | XMS_ITS | Clinical Summary ---
Author Organization [employer] Address [address] [place] [address] Care Team Providers Care Mosaic Tile Maker Name Role Phone Unavailable Primary Care Provider Unavailabl e Encounters Date Type Department Care Team Description 06/13/2025 Travel from Last 3 Months Social History Tobacco Use Types Packs/Day Years Used Date Smoking Tobacco: Never Assessed Sex and Gender Information Value Date Recorded Sex Assigned at Male 07/20/2022 10:15 AM EDT Legal Sex Male 10:15 AM EDT Gender Identity Not on file Sexual Orientation Not on file Plan of Treatment Health Maintenance Due Date Last Done Comments CT Colonography 1978 Colonoscopy 1978 Colorectal Cancer Screening 1978 Depression Screening 1978 FIT DNA/Cologuard 1978 FIT 1978 FOBT 1978 Lipid Panel 1978 Sigmoidoscopy 1978 Disability Screening 1978 Alcohol/Substance Use Screening 1990 Tobacco Screening 1990 Family Planning (PISQ) 1993 DTaP/Tdap/Td Vaccines (1 - Tdap) 1997 Hepatitis B Vaccines (1 of 3 - 19+ 3-dose series) 1997 COVID-19 Vaccine (3 - 2024-2 6 season) 2025 02/11/2021, 01/18/2021 Influenza Vaccine (#1) 2025 Zoster Vaccines (1 of 2) 02/10/2028 RSV Patients and Patients Aged 60 years or older (1 - 1-dose 75+ series) 2053 HIB Vaccines Aged Out No longer eligi [...] patient's age to complete this topic Meningococcal Vaccine Aged Out No emanuel marcos eligible based on patient's age to complete this topic Pneumococcal Vaccine: Pediatrics (0 to 5 Years) and At-Risk Patients (6 to 49) Years Aged Out No longer eligible b ased on patient's age to complete this topic RSV under 20 months Aged Out No longe r eligible based on patient's age to complete this topic Rotavirus Vaccines Aged Out No longer eligible based on patient's age to complete this topic Insurance [employer] MEDICARE REPLACEMENT [facility] [id number]
--- NOTE | 2025-06-13 21:47 | PC.NURSE ---
pt states he slipped cleaning a truck for work over a week ago, pt attempted to heal at home but the L foot pain is too intense. Pt has not been able to wear supportive shoes as his shoes do not fit at this time from swelling. He is currently wearing sandals, L foot noted to be swollen in comparison to the R, b/l knees have healing scrapes.
--- NOTE | 2025-06-13 22:29 | ED_ITS ---
HPI - Extremity Injury (Lower) General Chief Complaint: Extremity Injury, Lower Stated Complaint: B/L knee and L foot inj - work related Time Seen by Provider: 06/13/25 22:24 Source: patient Mode of arrival: ambulatory Limitations: no limitations History of Present Illness ED Provider: Nasir HERNÁNDEZ HPI Narrative: The patient is a 45-year-old male presenting to the ED reporting 1 month ago he was stepping off a bus when he accidentally suffered a inversion/rolling injury of the left foot by stepping onto a guest experience specialist. Patient reports since that time he has been experiencing extreme pain in the lateral aspect of the left midfoot. Patient reports he has been buying Percocet off the street to treat his pain but did not seek emergency medical care, or orthopedic evaluation. The patient reports on Wednesday this week he was washing a truck when he fell backwards off the truck onto the left foot with increased pain. Patient denies head strike or LOC, reports he was caught by a co-worker. The patient reports increasing pain in the left lateral foot since Wednesday. The patient denies distal paresthesias or impaired range of motion, reports increased pain with direct palpation and be aring weight. Related Data Previous Rx's ?Medication ?Instructions ?Recorded aspirin 81 mg tablet,delayed 81 mg PO DAILY 30 days #3 0 tabs 05/14/25 release atorvastatin 40 mg tablet 40 mg PO BEDTIME 30 days #30 tabs 05/14/25 hydroxyzine HCl 25 mg tablet 25 mg PO BID PRN mild anx iety 30 05/14/25 days #60 tabs lidocaine 4 % topical patch 1 patch transdermal BEDTIM E 5 days 05/14/25 (Lidocaine Pain Relief) #5 ea naltrexone 50 mg tablet 50 mg PO DAILY 30 days #30 t abs 05/14/25 quetiapine 100 mg tablet 100 mg PO DAILY PRN 05/14/25 agitation/psychosis 30 days #30 tabs quetiapine 150 mg tablet 150 mg PO BEDTIME 30 days #3 0 tabs 05/14/25 quetiapine 50 mg tablet 50 mg PO DAILY 30 days #30 t abs 05/14/25 acetaminophen 500 mg capsule 1,000 mg (2 x 500 mg) PO .q8 PRN 06/13/25 fever or pain #30 caps ibuprofen 600 mg tablet 600 mg PO Q8H PRN fever or p ain 06/13/25 #30 tabs Allergies Allergy/AdvReac Type Severity Reaction Status Date / Time No Known Allergies (No Known Allergy Verified 06/13/25 20:41 Allergies*) Review of Systems Review of Systems: Yes all other systems are reviewed and are negative [facility] Past Medical History Medical History (Updated 06/13/25 @ 22:56 by Nasir Rainey PA-C) Stroke Polysubstance abuse Schizophrenia Bipolar 1 disorder Family History Family History Father Anxiety Mother Diabetes High blood pressure Social History Social History Household Members: Family Housing: Apartment Do you presently have visiting nurse or other home services: No Alcohol intake: current Alcohol intake frequency: holidays/special occasions only Patient Tobacco Use Status: Never used Tobacco Cigarette Packs Per Day: 1 Cigarettes Per Day: 20.0 Years Smoked: since age 9 Second Hand Smoke Exposure: Yes Substance Use Type: Crack/Cocaine and Marijuana Advance Directives: No Advance Directives Information Provided: Yes service: No Sexual orientation: Straight/Heterosexual Physical Exam Vital Signs: Vital Signs: Last Vital Signs Temp 98.7 F 06/13/25 20:41 Pulse 89 06/13/25 20:41 Resp 16 06/13/25 20:41 BP 157/87 H 06/13/25 20:41 Pulse Ox 98 06/13/25 20:41 O2 Del Method Room Air 06/13/25 20:41 BMI result Body Mass Index 33.4 CONSTITUTIONAL: The patient appears highly anxious, borderline agitated, but otherwise non-toxic, well nourished and in no acute distress. Vital signs as documented. HEAD: Atraumatic, normocephalic. EYES: EOMs grossly intact, pupils equal, conjunctiva clear, no exudate. ENT: Nares patent, no discharge. Airway patent, no audible stridor, visible mucosa is pink and moist without noted lesions. NECK: trachea is midline, no obvious masses or gross abnormalities. CHEST: Symmetric movement, normal appearance. LUNGS: Non-labored work of breathing. CARDIAC: No evidence of hypoperfusion. ABDOMEN: Nondistended, no obvious injury. : Deferred. EXTREMITIES: Positive tenderness to palpation of the left lateral mid foot, no open injury, no palpable deformity, no crepitus, distal CSM intact, 2+ DP/PT pulses. No calf tenderness, no impaired range of motion. Moves all other extremities spontaneously without reported pain. No other obvious injury or deformity noted. NEURO: Alert and oriented x3, CN II-XII appear grossly intact. Cerebellar Functioning grossly intact. Speech clear and appropriate. SKIN: Warm, dry, color appropriate. No rashes or lesions noted. Medical Decision Making Medical Decision Making MDM Narrative: 10:57 PM 06/13/2025 (Benedicto HERNÁNDEZ): The patient is a 45-year-old male presenting to the ED reporting 1 month ago he was stepping off a bus when he accidentally suffered a inversion/rolling injury of the left foot by stepping onto a guest experience specialist. Patient reports since that time he has been experiencing extreme pain in the lateral aspect of the left midfoot. Patient reports he has been buying Percocet off the street to treat his pain but did not seek emergency medical care, or orthopedic evaluation. The patient reports on Wednesday this week he was washing a truck when he fell backwards off the truck onto the left foot with increased pain. Patient denies head strike or LOC, reports he was caught by a co-worker. The patient reports increasing pain in the left lateral foot since Wednesday. The patient denies distal paresthesias or impaired range of motion, reports increased pain with direct palpation and bearing weight. In the ED the patient is highly anxious, reporting severe pain in the left foot, patient is also noted to have healing abrasions of the bilateral knees. Patient was sent for bilateral knee x-rays which are unremarkable, left foot x-ray demonstrates a subacute fracture of the base of the left 5th metatarsal, no other acute findings. The patient will be treated with orthopedic walking boot, anti- inflammatories, and discharged to follow up with Orthopedics. Admission/Observation Consideration of admission/observation: Escalation of care including admission/observation considered Discharge Plan Discharge Clinical Impression: Nondisplaced fracture of fifth left metatarsal bone Patient Disposition: Home, Self-Care Instructions: Foot Fracture in Adults (ED) Additional Instructions: Thank you for choosing [facility] Emergency Department for your care today. Thankfully your bilateral knee x-rays today show no evidence of acute fracture, effusion, or other acute injury. At this time there is no indication for admission to the hospital or continued ED observation, and it is safe to discharge you home. Your foot x-ray does show evidence of a non-acute fracture of the base of your 5th bone of your midfoot, this is consistent with where your pain is located. Based on the appearance of the fracture on x-ray, this likely occurred as a result of your fall from the bus with rolling of your foot 1 month ago, and was made worse by your fall from the truck on Wednesday. You may take alternating (staggered) doses of ibuprofen 600mg and Tylenol 1000mg every 4 hours as needed for any additional pain. Please rest and elevate the injured area, and apply ice for 20 minutes every hour. Please do NOT continue to purchase or use opiate based pain medications obtained from non-healthcare individuals. Opiate based medications have a high risk of unintentional addiction and abuse. These medicines can make you drowsy, and potentially cause you to stop breathing and if taken outside recommended directions. Please follow up with the orthopedic clinic by calling the number provided. Please also follow up with your primary care physician for re-evaluation, additional management of your symptoms, and continued preventative care. If you do not have a primary care physician, please call the [facility] at [phone] to establish a new primary care physician. While waiting to establish your new primary care physician, you can call our Walk-in Care Clinic at [phone] for non-emergency needs. Please return to the emergency department if you develop a severe or sudden change in your symptoms, a fever over 100.4 that does not improve with Tylenol or Ibuprofen, recurrent vomiting, or any other new or worsening symptoms or concerns. Prescriptions: New ibuprofen 600 mg tablet 600 mg PO Q8H PRN (Reason: fever or pain) Qty: 30 0RF acetaminophen 500 mg capsule 1,000 mg PO .q8 PRN (Reason: fever or pain) Qty: 30 0RF No Action lidocaine [Lidocaine Pain Relief] 4 % Adhesive Patch,Medicated 1 patch transdermal BEDTIME 5 Days Qty: 5 0RF Protocol: Apply to: Apply to: Back quetiapine 50 mg Tablet 50 mg PO DAILY 30 Days Qty: 30 0RF quetiapine 150 mg tablet 150 mg PO BEDTIME 30 Days Qty: 30 0RF naltrexone 50 mg Tablet 50 mg PO DAILY 30 Days Qty: 30 0RF quetiapine 100 mg Tablet 100 mg PO DAILY PRN (Reason: agitation/psychosis) 30 Days Qty: 30 0RF hydroxyzine HCl 25 mg Tablet 25 mg PO BID PRN (Reason: mild anxiety) 30 Days Qty: 60 0RF atorvastatin 40 mg Tablet 40 mg PO BEDTIME 30 Days Qty: 30 0RF aspirin 81 mg Tablet,Delayed Release (Dr/Ec) 81 mg PO DAILY 30 Days Qty: 30 0RF Ref[place] [facility] [place] Group] Clinical Impression: Nondisplaced fracture of fifth left metatarsal bone Print Language: Kazakh
[2025-06-13 23:18] VITALS: BP 129/77; PULSE 64; RESP 18; TEMP 36.6; O2SAT 96
== END 2025-06-13 23:21 | disposition home or self-care (01) ==
PROVIDERS: Emergency Provider Emergency Medicine
DX: S92.355A Nondisplaced fracture of fifth metatarsal bone, left foot, initial encounter for closed fracture (principal); X50.1XXA Overexertion from prolonged static or awkward postures, initial encounter; Y93.89 Activity, other specified; Y92.89 Other specified places as the place of occurrence of the external cause; Y99.8 Other external cause status
CPT/HCPCS: 73564; 73630; 96372; 99284; J1885

== ENCOUNTER → 2025-06-13 20:48 | Outpatient (BNV) | payer MEDICARE, SELFPAY | PROVIDERS: Visit Provider Student in an Organized Health Care Education/Training Program | DX: M25.562 Pain in left knee (principal); M25.561 Pain in right knee; S92.355A Nondisplaced fracture of fifth metatarsal bone, left foot, initial encounter for closed fracture | CPT/HCPCS: 73564; 73630 ==

== ENCOUNTER 2025-06-13 23:34 | Inpatient (IN) | payer MEDICARE, SELFPAY ==
[2025-06-13 23:40] VITALS: BP 150/79; PULSE 67; RESP 16; TEMP 37.1; O2SAT 98; BMI 31.9
[2025-06-14 00:04] LABS: MANUAL DIFF FLAG NO
[2025-06-14 00:05] LABS: Hematocrit 36.8 % (42.0-52.0); Hemoglobin 13.0 g/dl (14.0-18.0); Imm Gran Abs Auto 0.03 X10*3/uL (0.00-0.03); Imm Gran Pct Auto 0.3 % (0.0-0.4); Lymphocytes Absolute Auto 3.6 X10*3/uL (1.2-4.9); Mean Corpuscular HGB Conc 35.3 g/dl (31.0-36.0); Mean Corpuscular Hemoglobin 30.7 pg (27.0-33.0); Mean Corpuscular Volume 86.8 fL (80.0-98.0); NRBC Abs Auto 0.000 X10*3/uL (0.0-0.012); NRBC Pct Auto 0.0 /100WBC (0.0-0.2); Platelet Count 364 X10*3/uL (160-400); Red Blood Count 4.24 X10*6/uL (4.60-5.80); White Blood Count 10.8 X10*3/uL (4.8-10.8)
--- NOTE | 2025-06-14 00:14 | ED.PSYCH ---
HPI - Psych General Chief Complaint: Psychiatric Symptoms Stated Complaint: Psych Time Seen by Provider: 06/14/25 00:11 Source: patient Mode of arrival: ambulatory Limitations: no limitations History of Present Illness ED Provider: Nasir HERNÁNDEZ HPI Narrative: The patient is a 45-year-old male with a history of polysubstance abuse, bipolar disorder, and alcohol dependence, who was just seen approximately 1 hour ago in his ED by this provider for evaluation of 1 month of left foot pain. Patient was diagnosed with a subacute fracture of the base of the 5th metatarsal. Patient was informed of this finding and need for outpatient follow up, and patient was subsequently discharged. The patient took his discharge paperwork and left the ED without stating other complaint. Shortly after walking out of the waiting room the patient reportedly returned and stated he would like to be re-registered and evaluated for depression and suicidal ideation without a plan. The patient advises while he was in the ED earlier his significant other contacted him and advised that she was leaving him for another individual, and was kicking him out of her residence. The patient states he recently moved here from [place] for his significant other, has no social support, and now that he is kicked out of her residence he has no where to go/housing insecurity. Patient reports he is now feeling depressed about his housing and overall living situation, also states concern he will now lose his job due to his foot injury. The patient denies homicidal ideation or auditory/visual hallucinations. Related Data Previous Rx's ?Medication ?Instructions ?Recorded aspirin 81 mg tablet,delayed 81 mg PO DAILY 30 days #30 tabs 05/14/25 release atorvastatin 40 mg tablet 40 mg PO BEDTIME 30 days #30 tabs 05/14/25 hydroxyzine HCl 25 mg tablet 25 mg PO BID PRN mild anxiety 30 05/14/25 days #60 tabs naltrexone 50 mg tablet 50 mg PO DAILY 30 days #30 tabs 05/14/25 quetiapine 100 mg tablet 100 mg PO DAILY PRN 05/14/25 agitation/psychosis 30 days #30 tabs quetiapine 150 mg tablet 150 mg PO BEDTIME 30 days #30 tabs 05/14/25 quetiapine 50 mg tablet 50 mg PO DAILY 30 days #30 tabs 05/14/25 Allergies Allergy/AdvReac Type Severity Reaction Status Date / Time No Known Allergies (No Known Allergy Verified 06/13/25 23:48 Allergies*) Review of Systems Review of Systems: Yes all other systems are reviewed and are negative [facility] Past Medical History Medical History (Updated 06/14/25 @ 12:12 by Marisol Kim) Stroke Polysubstance abuse Schizophrenia Bipolar 1 disorder Family History Family History Father Anxiety Mother Diabetes High blood pressure Social History Social History Household Members: Family Housing: Apartment Do you presently have visiting nurse or other home services: No Alcohol intake: current Alcohol intake frequency: holidays/special occasions only Patient Tobacco Use Status: Never used Tobacco Cigarette Packs Per Day: 1 Cigarettes Per Day: 20.0 Years Smoked: since age 9 Second Hand Smoke Exposure: Yes Substance Use Type: Crack/Cocaine and Marijuana Advance Directives: No Advance Directives Information Provided: Yes service: No Sexual orientation: Straight/Heterosexual Physical Exam Vital Signs: Vital Signs: Last Vital Signs Temp 98.6 F 06/14/25 08:10 Pulse 65 06/14/25 08:10 Resp 16 06/14/25 08:10 BP 142/70 H 06/14/25 08:10 Pulse Ox 96 06/14/25 08:10 O2 Del Method Room Air 06/14/25 08:10 BMI result Body Mass Index 31.9 CONSTITUTIONAL: The patient appears non-toxic, well nourished and in no acute distress. Vital signs as documented. HEAD: Atraumatic, normocephalic. EYES: EOMs grossly intact, pupils equal, conjunctiva clear, no exudate. ENT: Nares patent, no discharge. Airway patent, no audible stridor, visible mucosa is pink and moist without noted lesions. NECK: Trachea is midline, no obvious masses or gross abnormalities. CHEST: Symmetric movement, normal appearance. LUNGS: LS present and CTAB, no w/r/r. Non-labored work of breathing. CARDIAC: Regular Rhythm, S1/S2 appreciated, no murmurs, rubs or gallops. ABDOMEN: Abdomen soft and non-tender x4 quadrants, no palpable masses or organomegaly. : Deferred. EXTREMITIES: Pain and tenderness of the lateral left foot which is in a walking boot. Normal tone, moves all extremities spontaneously without reported pain. No obvious acute injury or deformity noted. Ambulates with a steady gait. NEURO: Alert and oriented x3, CN II-XII appear grossly intact. Cerebellar Functioning grossly intact. No obvious sensory or motor deficits. Speech clear and appropriate. PSYCH: Animated affect, with pressured and tangential speech, but otherwise with appropriate response to questioning. No reported suicidality or homicidality. Patient does not appear to be responding to internal stimuli. SKIN: Warm, dry, color appropriate, normal turgor. No rashes noted. Course Reevaluation(s) Reevaluation #1: DR. Padilla's progress note 12:14, 06/14/2025. Will discontinue physician observation now patient is admitted to for inpatient level of care. Medications Administered Generic Name Dose Route Start Last Admin Trade Name Freq PRN Reason Stop Dose Admin Aspirin 81 mg 06/14/25 09:00 06/14/25 09:27 Aspirin Enteric Coated 81 Mg Tablet. PO 81 mg DAILY FLORENTIN Administration Atorvastatin Calcium 40 mg 06/14/25 00:45 06/14/25 00:55 Atorvastatin Calcium 40 Mg Tablet PO 40 mg BEDTIME FLORENTIN Administration Hydroxyzine HCl 25 mg 06/14/25 00:36 06/14/25 00:54 Hydroxyzine Hcl 25 Mg Tablet PO 25 mg BID PRN Administration mild anxiety Quetiapine Fumarate 50 mg 06/14/25 09:00 06/14/25 09:28 Quetiapine Fumarate 50 Mg Tablet PO 50 mg DAILY FLORENTIN Administration Discontinued Medications Generic Name Dose Route Start Last Admin Trade Name Freq PRN Reason Stop Dose Admin Quetiapine Fumarate 150 mg 06/14/25 00:48 06/14/25 00:54 Quetiapine Fumarate 50 Mg Tablet PO 06/14/25 00:49 150 mg ONCE ONE Administration Medical Decision Making Medical Decision Making [facility] Narrative: 12:20 AM 06/14/2025 (Benedicto HERNÁNDEZ): The patient is a 45-year-old male with a history of polysubstance abuse, bipolar disorder, and alcohol dependence, who was just seen approximately 1 hour ago in his ED by this provider for evaluation of 1 month of left foot pain. Patient was diagnosed with a subacute fracture of the base of the 5th metatarsal. Patient was informed of this finding and need for outpatient follow up, and patient was subsequently discharged. The patient took his discharge paperwork and left the ED without stating other complaint. Shortly after walking out of the waiting room the patient reportedly returned and stated he would like to be re-registered and evaluated for depression and suicidal ideation without a plan. The patient advises while he was in the ED earlier his significant other contacted him and advised that she was leaving him for another individual, and was kicking him out of her residence. The patient states he recently moved here from [place] for his significant other, has no social support, and now that he is kicked out of her residence he has no where to go/housing insecurity. Patient reports he is now feeling depressed about his housing and overall living situation, also states concern he will now lose his job due to his foot injury. The patient denies homicidal ideation or auditory/visual hallucinations. Exam is unchanged, no acute findings with the exception of ongoing left foot pain. The patient will be held for psychiatry consultation. 3:26 AM 06/14/2025 (Benedicto HERNÁNDEZ): Of note the patient has been alert and awake, conversing nonstop with his one-to-one sitter throughout the evening. However, care team provider just now attempted to interview the patient and the patient informed the provider he was too tired to speak with them at this time, requested they come back in the morning for his evaluation. The patient's behavior is highly concerning for malingering with secondary gain of temporary retirement in the ED. Care team provider was informed of the patient's alert and conversive nature just prior to their attempted interview, care team provider advises they will attempt interview again shortly. 3:54 AM 06/14/2025 (Benedicto HERNÁNDEZ): Patient is seen by care team, patient is confirming he is homeless and suicidal without a formulated plan, is requesting admission to [facility] by name. The patient will be held on section 12 by care team for placement. Admission/Observation Consideration of admission/observation: Escalation of care including admission/observation considered Consult Healthcare Provider Management of the patient was discussed with: Behavioral Health Provider Lab Data MDM Lab Attestation statement: I reviewed the patient's lab results. 06/14/25 00:00 06/14/25 00:00 Labs: Lab Results 06/14/25 06/14/25 Range/Units 00:00 09:50 WBC 10.8 (4.8-10.8) X10*3/uL RBC 4.24 L (4.60-5.80) X10*6/uL Hgb 13.0 L (14.0-18.0) g/dl Hct 36.8 L (42.0-52.0) % MCV 86.8 (80.0-98.0) fL MCH 30.7 (27.0-33.0) pg MCHC 35.3 (31.0-36.0) g/dl RDW 14.1 (11.0-16.0) % Plt Count 364 (160-400) X10*3/uL MPV 8.7 L (9.4-12.4) fL Immature Gran % (Auto) 0.3 (0.0-0.4) % Neut % (Auto) 57.3 (45-73) % Lymph % (Auto) 33.0 (20-40) % [place] % (Auto) 7.1 (2-11) % Eos % (Auto) 1.8 (0-4) % Baso % (Auto) 0.5 (0-2) % Lymph # (Auto) 3.6 (1.2-4.9) X10*3/uL Eagle # (Auto) 0.8 (0.1-1.2) X10*3/uL Eos # (Auto) 0.2 (0.0-0.4) X10*3/uL Baso # (Auto) 0.1 (0.0-0.2) X10*3/uL Abs Immat Gran (auto) 0.03 (0.00-0.03) X10*3/uL Absolute Neuts (auto) 6.2 (2.0-8.3) x10*3/uL Absolute Nucleated RBC 0.000 (0.0-0.012) X10*3/uL Nucleated RBC % (auto) 0.0 (0.0-0.2) /100WBC Sodium 144 (135-145) mmol/L Potassium 3.9 (3.3-5.1) mmol/L Chloride 108 (96-108) mmol/L Carbon Dioxide 24 (22-29) mmol/L Anion Gap 16 (12-20) BUN 7 L (9-16) mg/dL Creatinine 0.74 (0.5-1.4) mg/dL Estim Creat Clear Calc 138.1 Estimated GFR > 60 Random Glucose 94 (60-115) mg/dL Calcium 8.9 (8.4-10.2) mg/dL Total Bilirubin 0.4 (0.0-1.0) mg/dL AST 27 (5-37) U/L ALT 25 (0-40) U/L Alkaline Phosphatase 68 (39-117) U/L Total Protein 7.4 (6.5-8.0) g/dL Albumin 4.7 (3.5-5.0) g/dL Urine Color Yellow Urine Appearance Clear Urine pH 6.0 (5.0-9.0) Ur Specific [place] 1.020 (1.005-1.025) Urine Protein Negative (Neg-Trace) mg/dL Urine Glucose (UA) Negative (Negative) mg/dL Urine Ketones Trace (Negative) mg/dL Urine Blood Trace H (Negative) Urine Nitrite Negative (Negative) Ur Leukocyte Esterase Negative (Negative) Urine RBC 3-5 H (0-2) /HPF Urine WBC 0-5 (0-5) /HPF Ur Squamous Epith Cells 0-2 (0-2) /HPF Urine Bacteria None Seen (None Seen) Hyaline Casts 0-2 (0-2) /LPF Urine Opiates Screen Not Detected (Not Detect) Ur Buprenorphine Scrn Not Detected (Not Detect) ng/mL Ur Oxycodone Screen Not Detected (Not Detect) ng/mL Urine Methadone Screen Not Detected (Not Detect) ng/mL Urine Fentanyl Screen Not Detected (Not Detect) Ur Barbiturates Screen Not Detected (Not Detect) Ur Phencyclidine Scrn Not Detected (Not Detect) Ur Amphetamines Screen Not Detected (Not Detect) U Benzodiazepines Scrn Not Detected (Not Detect) Urine Cocaine Screen POSITIVE H (Not Detect) U Marijuana (THC) Screen POSITIVE H (Not Detect) Ethyl Alcohol 170 mg/dL Discharge Plan Discharge Clinical Impression: Depression Patient Disposition: Admitted As Inpatient Interventions: Gates-Suicide Risk Severity Scale Last Done: 06/14/25 02:00 Print Language: [place]er
[2025-06-14 00:24] LABS: Alanine Aminotransferase 25 U/L (0-40); Albumin Level 4.7 g/dL (3.5-5.0); Alkaline Phosphatase 68 U/L (39-117); Anion Gap 16 (12-20); Aspartate Amino Transferase 27 U/L (5-37); Blood Urea Nitrogen 7 mg/dL (9-16); Calcium 8.9 mg/dL (8.4-10.2); Carbon Dioxide 24 mmol/L (22-29); Chloride 108 mmol/L (96-108); Creatinine Clr Calc Pharmacy 138.1; Estimated Glomerular Filt Rate > 60; Potassium 3.9 mmol/L (3.3-5.1); Sodium 144 mmol/L (135-145); Total Protein 7.4 g/dL (6.5-8.0)
--- NOTE | 2025-06-14 07:44 | ECG_ITS ---
Test Reason : Admission Blood Pressure : */* mmHG Vent. Rate : 63 BPM Atrial Rate : 63 BPM P-R Int : 138 ms QRS Dur : 96 ms QT Int : 410 ms P-R-T Axes : 6 52 22 degrees QTcB Int : 419 ms Normal sinus rhythm Normal ECG When compared with ECG of 03-May-2025 15:27, QRS duration has decreased Non-specific change in ST segment in Anterior leads QT has shortened Referred By: Pilar Thomas Electronically Signed By: Ciro Thurston
[2025-06-14 08:10] VITALS: BP 142/70; PULSE 65; RESP 16; TEMP 37; O2SAT 96
[2025-06-14] MEDS: Aspirin Enteric Coated 81 MG TABLET.DR PO (09:27)
[2025-06-14 09:57] LABS: Appearance Urine Clear; Glucose Urine UA Negative (Negative); PH 6.0 (5.0-9.0); Specific Gravity - Urine 1.020 (1.005-1.025); UMIC TRIGGER UACC YES
[2025-06-14 10:09] LABS: Cannabinoid Screen Urine POSITIVE (Not Detect)
--- NOTE | 2025-06-14 10:17 | PC.NURSE ---
Pt calm/cooperative with care. Pt took am medications without incident. Pt aware of inpatient BS.
--- NOTE | 2025-06-14 13:23 | HO.PM.IMCN ---
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 He left the ED and subsequently returned to be registered and evaluated for depression and suicidal ideation without a plan. In the ED his workup was essentially negative, no evidence of renal or liver injury, CBC with mild anemia. Urinalysis without evidence of infection. EKG with normal sinus rhythm and no ischemic changes. Recent bilateral knee x-ray negative for any fracture. X-ray of the foot feels a subacute fracture of the 5th metatarsal base. Patient should have outpatient follow up with Podiatry. He reports a foreign body in his right thumb. Specifically a small rock which is now surrounded by pus. No fever, tender to touch. He denies any shortness of breath, dizziness, lightheadedness or any other concerning symptoms. Reports that he did not have a ride home the other night at 1:00am so he re-presented to the ER so he could spend the night, not happy that he is here. Review of Systems Review of Systems: Denies any shortness of breath, chest pain, dizziness, lightheadedness, abdominal pain or discomfort, nausea vomiting or diarrhea [facility] Medical History (Updated 06/14/25 @ 15:30 by Lisa Mello DNP) Stroke Polysubstance abuse Schizophrenia Bipolar 1 disorder Family History Father Anxiety Mother Diabetes High blood pressure Social History Household Members: None Housing: Apartment Do you presently have visiting nurse or other home services: No Alcohol intake: current Alcohol intake frequency: holidays/special occasions only Patient Tobacco Use Status: Never used Tobacco Cigarette Packs Per Day: 1 Cigarettes Per Day: 20.0 Years Smoked: since age 9 Second Hand Smoke Exposure: Yes Substance Use Type: Crack/Cocaine and Marijuana service: No Sexual orientation: Straight/Heterosexual Meds Allergies Allergy/AdvReac Type Severity Reaction Status Date / Time No Known Allergies (No Known Allergy Verified 06/13/25 23:48 Allergies*) Active Medications: Current Medications Acetaminophen (Acetaminophen 325 Mg Tablet) 650 mg PO Q6H PRN PRN Reason: Headache/Pain, Scale 1-10 Al Hydroxide/Mg Hydroxide (Magnesium Hydrox/Alum Hydrox 30 Ml Oral.Susp) 30 ml PO Q6H PRN PRN Reason: Heartburn/Nausea Aspirin (Aspirin Enteric Coated 81 Mg Tablet.Dr) 81 mg PO DAILY [facility] Last Admin: 06/14/25 09:27 Dose: 81 mg Atorvastatin Calcium (Atorvastatin Calcium 40 Mg Tablet) 40 mg PO BEDTIME [facility] Last Admin: 06/14/25 00:55 Dose: 40 mg Hydroxyzine HCl (Hydroxyzine Hcl 25 Mg Tablet) 25 mg PO BID PRN PRN Reason: mild anxiety Last Admin: 06/14/25 00:54 Dose: 25 mg Magnesium Hydroxide (Milk Of Magnesia 30 Ml Oral.Susp) 30 ml PO DAILY PRN PRN Reason: Constipation Naltrexone HCl (Naltrexone Hcl 50 Mg Tablet) 50 mg PO DAILY [facility] Nicotine (Nicotine 21 Mg Patch.Td24) 21 mg TRANSDERMA DAILY PRN PRN Reason: nicotine craving Nicotine Polacrilex (Nicotine Polacrilex 2 Mg Gum) 2 mg BUCCAL Q2H PRN PRN Reason: Nicotine Cravings Olanzapine (Olanzapine 5 Mg Tablet) 5 mg PO BID PRN PRN Reason: agitation Quetiapine Fumarate (Quetiapine Fumarate 50 Mg Tablet) 50 mg PO DAILY [facility] Last Admin: 06/14/25 09:28 Dose: 50 mg Quetiapine Fumarate (Quetiapine Fumarate 100 Mg Tablet) 100 mg PO DAILY PRN PRN Reason: agitation/psychosis Quetiapine Fumarate (Quetiapine Fumarate 50 Mg Tablet) 150 mg PO BEDTIME [facility] Trazodone HCl (Trazodone Hcl 50 Mg Tablet) 50 mg PO BEDTIME MRX1 PRN PRN Reason: Insomnia Physical Exam Vital Signs and Narrative: Vital Signs: Last Vital Signs Temp 98.6 F 06/14/25 08:10 Pulse 65 06/14/25 08:10 Resp 16 06/14/25 08:10 BP 142/70 H 06/14/25 08:10 Pulse Ox 96 06/14/25 08:10 O2 Del Method Room Air 06/14/25 08:10 BMI result Body Mass Index 31.9 CONST: Alert and oriented, in NAD. Well nourished HEENT: Normocephalic, atraumatic, MMM, Eyes clear, Neck supple RESP: Lungs clear, RRR even and regular HEART:,RRR, S1, S2. No murmur, no edema GI:Abdomen Soft NT, ND. + BS times four :Deferred SKIN: Warm dry and intact, small round area on right thumb with pus. Area firm, tender to tough. No surrounding redness, slightly warm. NEURO:CN II-XII Intact bilaterally, Sensation intact. Speech clear PSYCH: Normal affect Results Labs 06/14/25 00:00 06/14/25 00:00 Labs: Laboratory Results - last 24 hr 06/14/25 06/14/25 00:00 09:50 MCV 86.8 MCH 30.7 MCHC 35.3 RDW 14.1 Plt Count 364 MPV 8.7 L Immature Gran % (Auto) 0.3 Neut % (Auto) 57.3 Lymph % (Auto) 33.0 [place] % (Auto) 7.1 Eos % (Auto) 1.8 Baso % (Auto) 0.5 Lymph # (Auto) 3.6 [place] # (Auto) 0.8 Eos # (Auto) 0.2 Baso # (Auto) 0.1 Abs Immat Gran (auto) 0.03 Absolute Neuts (auto) 6.2 Absolute Nucleated RBC 0.000 Nucleated RBC % (auto) 0.0 Anion Gap 16 Estim Creat Clear Calc 138.1 Estimated GFR > 60 Random Glucose 94 Calcium 8.9 Total Bilirubin 0.4 AST 27 ALT 25 Alkaline Phosphatase 68 Total Protein 7.4 Albumin 4.7 Urine Color Yellow Urine Appearance Clear Urine pH 6.0 Ur Specific [place] 1.020 Urine Protein Negative Urine Glucose (UA) Negative Urine Ketones Trace Urine Blood Trace H Urine Nitrite Negative Ur Leukocyte Esterase Negative Urine RBC 3-5 H Urine WBC 0-5 Ur Squamous Epith Cells 0-2 Urine Bacteria None Seen Hyaline Casts 0-2 Urine Opiates Screen Not Detected Ur Buprenorphine Scrn Not Detected Ur Oxycodone Screen Not Detected Urine Methadone Screen Not Detected Urine Fentanyl Screen Not Detected Ur Barbiturates Screen Not Detected Ur Phencyclidine Scrn Not Detected Ur Amphetamines Screen Not Detected U Benzodiazepines Scrn Not Detected Urine Cocaine Screen POSITIVE H U Marijuana (THC) Screen POSITIVE H Ethyl Alcohol 170 Assessment and Plan (1) HLD (hyperlipidemia): Status: Acute Plan 45-year-old male with a past medical history of bipolar disorder, schizophrenia, hyperlipidemia, polysubstance abuse, history of 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 Schizophrenia/bipolar disorder/polysubstance abuse, alcohol dependence Treatment per psychiatric team Hyperlipidemia/left hemispheric infarct 04/2025 Continue statin and ASA Avoid alcohol and illicit substances BP control, blood pressure currently within normal limits. Subacute Fracture 5th metatarsal of left foot Will need outpatient follow up with the dispensary clerk Foreign body in right thumb Referred to orthopedics for drainage Thank you for allowing me to participate in the care of this patient. Will follow as needed, please notify medical provider with any changes in condition or concerns.
[2025-06-14 13:39] VITALS: BP 132/76; PULSE 70; RESP 18; TEMP 36.9; O2SAT 99
--- NOTE | 2025-06-14 15:41 | PC.NURSE ---
Addendum entered by Jalyn Maldonado RN 06/14/25 15:50: 1257 is the admit time Original Note: [place] at [place] [facility] [place]. Pt reports SI, and AVH which he reports he has all the time . This is what is documented in crisis report. Per pt he presented at the ED yesterday with complaints of foot pain. Pt is wearing a walking boot on left foot. He is unclear about etiology, stating its an old injury that was re-injuring. It is unclear whether he has seen a doctor recently to order this boot. Pt reports his reason for being here is as follows They discharged me at 1am, with no ride, and wanted me to walk to [address] (a [address] in [place]) in the rain . Pt stated I got into the parking lot, and since I already have a behavioral health diagnosis I decided to be behavioral . Pt reports he acted a fool in the parking lot so they brought him inside and let him sleep in the ED. Pt is a poor historian, tangential during admission. He reports he has no outpatient providers, though he left last month. He states every time he tries to follow up he feels they give him the run around and he feels they dont want to have him as a pt. He also admits he may have been verbally abusive to OP providers on the phone and they may have told them that is why they will not accept him back. Pt reports ETOH drinking 3-4 times a week, though does not want any addiction services counseling. He is not a cigarette smoker, only marijuana. Pt declined flu vaccine. Pt reports he is hoping to discharge tomorrow as he wants to go back to work. He states today () it was raining and he doesnt work on , so he was hoping to get the help he needed today.
[2025-06-14 20:18] VITALS: BP 135/83; PULSE 77; RESP 16; TEMP 36.7; O2SAT 97
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
[2025-06-15 08:00] VITALS: BP 117/68; PULSE 57; RESP 16; TEMP 36.8; O2SAT 99
[2025-06-15] MEDS: Aspirin Enteric Coated 81 MG TABLET.DR PO (09:00)
[2025-06-15 10:10] LABS: Hemoglobin A1C 136.4209 umol/L; Total Hemoglobin (HGBA1C) 3518.4722 umol/L
[2025-06-15 10:30] LABS: Alanine Aminotransferase 21 U/L (0-40); Albumin Level 4.4 g/dL (3.5-5.0); Alkaline Phosphatase 69 U/L (39-117); Aspartate Amino Transferase 17 U/L (5-37); Blood Urea Nitrogen 14 mg/dL (9-16); Calcium 9.1 mg/dL (8.4-10.2); Cholesterol 188 mg/dL (<200); Creatinine Clr Calc Pharmacy 127.7; Estimated Glomerular Filt Rate > 60; HDL Cholesterol 57 mg/dL (>40); Total Protein 7.0 g/dL (6.5-8.0); Triglycerides 150 mg/dL (<150)
[2025-06-15 10:34] LABS: Free T4 (Free Thyroxine) 1.03 ng/dL (0.71-1.85); Thyroid Stimulating Hormone 0.77 uIU/mL (0.32-4.0)
[2025-06-15 10:38] LABS: Anion Gap 11 (12-20); Carbon Dioxide 29 mmol/L (22-29); Chloride 106 mmol/L (96-108); Potassium 4.0 mmol/L (3.3-5.1); Sodium 142 mmol/L (135-145)
--- NOTE | 2025-06-15 12:59 | P.CONOP_ITS ---
History of Present Illness HPI Consult date: 06/15/25 Chief complaint: depression Narrative: Patient is a 45-year-old male who was admitted to the hospital for depressive episode Of note, the patient is noted to have a foreign body of the right thumb that does appear to have some purulence surrounding it Patient reports that this foreign body became imbedded in his thumb when he fell Patient reports minimal discomfort around the foreign body itself Patient reports full range of motion of the right hand No other acute complaints or concerns at this time Review of Systems 2 Review of Systems: Yes all other systems are reviewed and are negative [facility] Past Medical History Medical History (Updated 06/15/25 @ 14:41 by EDGAR Avalos) Stroke Polysubstance abuse Schizophrenia Bipolar 1 disorder Family History Family History Father Anxiety Mother Diabetes High blood pressure Social History Social History Household Members: None Housing: Apartment Do you presently have visiting nurse or other home services: No Alcohol intake: current Alcohol intake frequency: holidays/special occasions only Patient Tobacco Use Status: Never used Tobacco Cigarette Packs Per Day: 1 Cigarettes Per Day: 20.0 Years Smoked: since age 9 Second Hand Smoke Exposure: Yes Substance Use Type: Crack/Cocaine and Marijuana service: No Sexual orientation: Straight/Heterosexual Meds Allergies Allergy/AdvReac Type Severity Reaction Status Date / Time No Known Allergies (No Known Allergy Verified 06/13/25 23:48 Allergies*) Active Medications: Current Medications Acetaminophen (Acetaminophen 325 Mg Tablet) 650 mg PO Q6H PRN PRN Reason: Headache/Pain, Scale 1-10 Last Admin: 06/15/25 09:03 Dose: 650 mg Al Hydroxide/Mg Hydroxide (Magnesium Hydrox/Alum Hydrox 30 Ml Oral.Susp) 30 ml PO Q6H PRN PRN Reason: Heartburn/Nausea Aspirin (Aspirin Enteric Coated 81 Mg Tablet.) 81 mg PO DAILY [facility] Last Admin: 06/15/25 09:00 Dose: 81 mg Atorvastatin Calcium (Atorvastatin Calcium 40 Mg Tablet) 40 mg PO BEDTIME [facility] Last Admin: 06/14/25 23:34 Dose: Not Given Hydroxyzine HCl (Hydroxyzine Hcl 25 Mg Tablet) 25 mg PO BID PRN PRN Reason: mild anxiety Last Admin: 06/14/25 00:54 Dose: 25 mg Magnesium Hydroxide (Milk Of Magnesia 30 Ml Oral.Susp) 30 ml PO DAILY PRN PRN Reason: Constipation Naltrexone HCl (Naltrexone Hcl 50 Mg Tablet) 50 mg PO DAILY [facility] Last Admin: 06/15/25 09:01 Dose: 50 mg Nicotine (Nicotine 21 Mg Patch.Td24) 21 mg TRANSDERMA DAILY PRN PRN Reason: nicotine craving Nicotine Polacrilex (Nicotine Polacrilex 2 Mg Gum) 2 mg BUCCAL Q2H PRN PRN Reason: Nicotine Cravings Olanzapine (Olanzapine 5 Mg Tablet) 5 mg PO BID PRN PRN Reason: agitation Last Admin: 06/14/25 15:11 Dose: 5 mg Quetiapine Fumarate (Quetiapine Fumarate 50 Mg Tablet) 50 mg PO DAILY [facility] Last Admin: 06/15/25 09:01 Dose: 50 mg Quetiapine Fumarate (Quetiapine Fumarate 100 Mg Tablet) 100 mg PO DAILY PRN PRN Reason: agitation/psychosis Quetiapine Fumarate (Quetiapine Fumarate 50 Mg Tablet) 150 mg PO BEDTIME [facility] Last Admin: 06/14/25 23:34 Dose: Not Given Trazodone HCl (Trazodone Hcl 50 Mg Tablet) 50 mg PO BEDTIME MRX1 PRN PRN Reason: Insomnia Physical Exam 2 Vital Signs: Vital Signs: Last Vital Signs Temp 98.2 F 06/15/25 08:00 Pulse 57 06/15/25 08:00 Resp 16 06/15/25 08:00 BP 117/68 06/15/25 08:00 Pulse Ox 99 06/15/25 08:00 O2 Del Method Room Air 06/15/25 08:00 BMI result Body Mass Index 31.9 Extrem: Other: Patient is alert, oriented, and in no acute distress. Neuro: Normal sensation of the tips of all digits of the right hand at this time Vascular: Cap refill brisk Pain: Very mild tenderness to palpation about the pad of the right thumb near the foreign body No pain with range of motion of the right thumb or any of the digits of the right hand ROM: Patient is able to make a closed fist and extend all digits of the right hand fully and without difficulty Skin: No open areas noted on the right thumb There is noted to be a small, superficial appearing area of purulence that does around a dark area consistent with a small foreign body Psych: Appears grossly normal Affect normal Attitude cooperative Results Labs 06/14/25 00:00 06/15/25 08:58 Labs: Abnormal lab results 06/15/25 Range/Units 08:58 Anion Gap 11 L (12-20) Random Glucose 118 H (60-115) mg/dL Triglycerides 150 H (<150) mg/dL LDL Cholesterol, Calc 101 H (<100) mg/dL H & H 06/14/25 Range/Units 00:00 Hgb 13.0 L (14.0-18.0) g/dl Hct 36.8 L (42.0-52.0) % All other labs normal. Assessment and Plan (1) Foreign body of thumb, right, superficial, infected: Status: Acute Plan 1. Superficial foreign body of right thumb With evidence of surrounding superficial purulence No evidence of disseminated infection I educated the patient about the condition. I discussed both operative and nonoperative treatment options. The patient would like to proceed with surgery. The risks and benefits of operative treatment were discussed with the patient and the patient wishes to proceed with surgery. These risks include, but are not limited to, risk of damage to blood vessels, nerves, tendons, infection, recurrence, incomplete relief of preoperative symptoms, persistent pain, possible need for further surgery, and the risks associated with regional blocks and/or anesthesia. Plan is to take the patient to the operating room at some point in the next few weeks for the following procedures: 1. Right thumb foreign body removal I and D under local All of the preoperative paperwork including the consent was discussed today. All of the patient's questions were answered in the clinic today. The patient understands that they will be in contact with our surgical services manager to discuss scheduling their procedure. Patient denies diabetes, blood thinners, asthma, heart issues, lung issues, kidney issues, or current smoking. Patient can be discharged if cleared prior to surgery, as he is on the OR schedule Patient is aware that if he is discharged, he will need to present to short stay surgery on Wednesday for foreign body removal No need for NPO, as patient will have surgery performed under local anesthesia Prior to surgery, patient should be undergoing hot saline soaks for encouragement of spontaneous drainage of infection Patient understands this and is amenable to this plan Procedures Date of Service Date of Service: 06/15/25
--- NOTE | 2025-06-15 17:02 | HO.PSYCHPN ---
Subjective Subjective Date of Service: 06/15/25 Reason For Visit: depression Subjective Notes: Conditional Voluntary Healthcare Proxy: No Guardianship: No Medical Problems Affecting Mental Status: No Interim History: Medical record and nursing notes reviewed; case discussed during rounds with team/nursing staff, and met with patient for supportive therapy/psychoeducation, as well as medication management. Patient slept well. Went to bed early last night and did not take HS meds yesterday. Encourage patient to consistent with meds to help with his mood. Report chronic SI/VH but not current now. He is visible, social, overly bright and loud but pleasant upon approach. Patient told nursing he was taking Clonazepam from outside but there was no record of him given or prescribed. Utox +CONNIE and THC only. Patient also signed CV, he says he called his job and they said he should take time off to take care of his health first. Medication Compliance: No (Did not take his HS meds yesterday) Side effects from medications: No Attending Groups: Intermittent Review of Systems Acute medical concerns: No Medical Review of Systems: unchanged Review of Systems Review of Systems Yes all other systems are reviewed and are negative Mental Status Exam Mental Status Exam Narrative: Patient is alert and oriented; behavior is cooperative, friendly with mild to moderate anxiety and depression; patient is not in distress; dressed in casual attire with kempt hair and adequate hygiene; mood is described as good affect incongruent; eye contact appropriate; Speech is normal rate, somewhat hyperverbal, , normal to loud volume and prosody and not pressured; no psychomotor agitation/retardation present; thought process is organized but goal directed; minimized sudstance use. Thought content is WNL, pertinent to relevant topics and without any delusional content, or grandiosity; denies any SI/SIB/HI.. Denies AH and there is no evidence of perceptual disturbance. Patient's insight and judgment poor . Diagnostics Vital Signs (24Hr): Vital Signs - 24 hr 06/14/25 20:18 06/15/25 08:00 Temperature 98.1 F 98.2 F Pulse Rate 77 57 Respiratory Rate 16 16 Blood Pressure 135/83 117/68 Pulse Oximetry 97 99 Oxygen Delivery Method Room Air Room Air BMI result Body Mass Index 31.9 Labs 06/14/25 00:00 06/15/25 08:58 Labs: Laboratory Results - last 48 hr 06/14/25 06/14/25 06/15/25 00:00 09:50 08:58 WBC 10.8 RBC 4.24 L Hgb 13.0 L Hct 36.8 L MCV 86.8 MCH 30.7 MCHC 35.3 RDW 14.1 Plt Count 364 MPV 8.7 L Immature Gran % (Auto) 0.3 Neut % (Auto) 57.3 Lymph % (Auto) 33.0 [place] % (Auto) 7.1 Eos % (Auto) 1.8 Baso % (Auto) 0.5 Lymph # (Auto) 3.6 [place] # (Auto) 0.8 Eos # (Auto) 0.2 Baso # (Auto) 0.1 Abs Immat Gran (auto) 0.03 Absolute Neuts (auto) 6.2 Absolute Nucleated RBC 0.000 Nucleated RBC % (auto) 0.0 Sodium 144 142 Potassium 3.9 4.0 Chloride 108 106 Carbon Dioxide 24 29 Anion Gap 16 11 L BUN 7 L 14 Creatinine 0.74 0.80 Estim Creat Clear Calc 138.1 127.7 Estimated GFR > 60 > 60 Random Glucose 94 118 H Estimat Average Glucose 117 Hemoglobin A1c % 5.7 Calcium 8.9 9.1 Total Bilirubin 0.4 0.6 AST 27 17 ALT 25 21 Alkaline Phosphatase 68 69 Total Protein 7.4 7.0 Albumin 4.7 4.4 Triglycerides 150 H Cholesterol 188 LDL Cholesterol, Calc 101 H HDL Cholesterol 57 TSH 0.77 Free T4 1.03 Urine Color Yellow Urine Appearance Clear Urine pH 6.0 Ur Specific [place] 1.020 Urine Protein Negative Urine Glucose (UA) Negative Urine Ketones Trace Urine Blood Trace H Urine Nitrite Negative Ur Leukocyte Esterase Negative Urine RBC 3-5 H Urine WBC 0-5 Ur Squamous Epith Cells 0-2 Urine Bacteria None Seen Hyaline Casts 0-2 Urine Opiates Screen Not Detected Ur Buprenorphine Scrn Not Detected Ur Oxycodone Screen Not Detected Urine Methadone Screen Not Detected Urine Fentanyl Screen Not Detected Ur Barbiturates Screen Not Detected Ur Phencyclidine Scrn Not Detected Ur Amphetamines Screen Not Detected U Benzodiazepines Scrn Not Detected Urine Cocaine Screen POSITIVE H U Marijuana (THC) Screen POSITIVE H Ethyl Alcohol 170 Medications Medications Current Medications Acetaminophen (Acetaminophen 325 Mg Tablet) 650 mg PO Q6H PRN PRN Reason: Headache/Pain, Scale 1-10 Last Admin: 06/15/25 09:03 Dose: 650 mg Al Hydroxide/Mg Hydroxide (Magnesium Hydrox/Alum Hydrox 30 Ml Oral.Susp) 30 ml PO Q6H PRN PRN Reason: Heartburn/Nausea Aspirin (Aspirin Enteric Coated 81 Mg Tablet.Dr) 81 mg PO DAILY [facility] Last Admin: 06/15/25 09:00 Dose: 81 mg Atorvastatin Calcium (Atorvastatin Calcium 40 Mg Tablet) 40 mg PO BEDTIME [facility] Last Admin: 06/14/25 23:34 Dose: Not Given Hydroxyzine HCl (Hydroxyzine Hcl 25 Mg Tablet) 25 mg PO BID PRN PRN Reason: mild anxiety Last Admin: 06/14/25 00:54 Dose: 25 mg Magnesium Hydroxide (Milk Of Magnesia 30 Ml Oral.Susp) 30 ml PO DAILY PRN PRN Reason: Constipation Naltrexone HCl (Naltrexone Hcl 50 Mg Tablet) 50 mg PO DAILY [facility] Last Admin: 06/15/25 09:01 Dose: 50 mg Nicotine (Nicotine 21 Mg Patch.Td24) 21 mg TRANSDERMA DAILY PRN PRN Reason: nicotine craving Nicotine Polacrilex (Nicotine Polacrilex 2 Mg Gum) 2 mg BUCCAL Q2H PRN PRN Reason: Nicotine Cravings Olanzapine (Olanzapine 5 Mg Tablet) 5 mg PO BID PRN PRN Reason: agitation Last Admin: 06/15/25 16:39 Dose: 5 mg Quetiapine Fumarate (Quetiapine Fumarate 50 Mg Tablet) 50 mg PO DAILY [facility] Last Admin: 06/15/25 09:01 Dose: 50 mg Quetiapine Fumarate (Quetiapine Fumarate 100 Mg Tablet) 100 mg PO DAILY PRN PRN Reason: agitation/psychosis Quetiapine Fumarate (Quetiapine Fumarate 50 Mg Tablet) 150 mg PO BEDTIME [facility] Last Admin: 06/14/25 23:34 Dose: Not Given Trazodone HCl (Trazodone Hcl 50 Mg Tablet) 50 mg PO BEDTIME MRX1 PRN PRN Reason: Insomnia Allergies Allergies Allergy/AdvReac Type Severity Reaction Status Date / Time No Known Allergies (No Known Allergy Verified 06/13/25 23:48 Allergies*) Assessment & Plan Assessment & Plan (1) Foreign body of thumb, right, superficial, infected: Status: Acute Code(s): S60.351A - Superficial foreign body of right thumb, initial encounter; L08.9 - Local infection of the skin and subcutaneous tissue, unspecified (2) Bipolar 1 disorder: Status: Chronic Code(s): F31.9 - Bipolar disorder, unspecified (3) Polysubstance abuse: Status: Acute Code(s): F19.10 - Other psychoactive substance abuse, uncomplicated (4) HLD (hyperlipidemia): Status: Acute Code(s): E78.5 - Hyperlipidemia, unspecified Plan HPI: Patient is a 45 year old, single, bilingual, male with hx of Bipolar previously known to the CARE team from two prior assessments on 11/26/2020 and . His last assessment resulted in an IPLOC admission to [facility] . Patient was BIBA to the [facility] ED to address ongoing pain he had been experiencing in his left foot. Patient was ultimately discharged, but soon returned to triage stating he was homeless after being kicked out of his girlfriend's apartment and SI no plan. Formulation/clinical reasoning: Patient minimizes substance use, denies SA but Utox +CONNIE and THC. BAL 175. Can be irritable and loud, inconsistent report regarding housing, mild labile mood, can be impulsive. Currently no SI/SIB/HI/AVH, no issue with sleep or appetite. Speech is loud with normal rate, no pressure, but appear with mild labile. He can be irritable and impulsive. Thought content is WNL but can experience AH and self dialogue. Thought process is organized and goal directed. 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 Given hx of Bipolar, patient would be benefit for restrictive environment for his own safety, medication adjustment as needs and refer patient out to OP psychiatric services. Hospital course: 06/14/25: Continue with all home meds. Monitor for W/D from CONNIE or alcohol. He does not W/D symptoms at the assement time. Seroquel 50mg BID, 150mg at HS and PRN 100mg. Naltrexone 50mg daily for alcohol craving. He would like to get Vivitrol GOMEZ upon discharge. 06/15/25: Patient slept well. Went to bed early last night and did not take HS meds yesterday. Encourage patient to consistent with meds to help with his mood. Report chronic SI/VH but not current now. He is visible, social, overly bright and loud but pleasant upon approach. Patient told nursing he was taking Clonazepam from outside but there was no record of him given or prescribed. Utox +CONNIE and THC only. Patient also signed CV, he says he called his job and they said he should take time off to take care of his health first. Patient was seen by hospitalist. Per Hospitalist note: 1. Superficial foreign body of right thumb With evidence of surrounding superficial purulence No evidence of disseminated infection I educated the patient about the condition. I discussed both operative and nonoperative treatment options. The patient would like to proceed with surgery. The risks and benefits of operative treatment were discussed with the patient and the patient wishes to proceed with surgery. These risks include, but are not limited to, risk of damage to blood vessels, nerves, tendons, infection, recurrence, incomplete relief of preoperative symptoms, persistent pain, possible need for further surgery, and the risks associated with regional blocks and/or anesthesia. Plan is to take the patient to the operating room at some point in the next few weeks for the following procedures: 1. Right thumb foreign body removal I and D under local All of the preoperative paperwork including the consent was discussed today. All of the patient's questions were answered in the clinic today. The patient understands that they will be in contact with our surgical aides teacher to discuss scheduling their procedure. Patient denies diabetes, blood thinners, asthma, heart issues, lung issues, kidney issues, or current smoking. Patient can be discharged if cleared prior to surgery, as he is on the OR schedule Patient is aware that if he is discharged, he will need to present to short stay surgery on Wednesday for foreign body removal No need for NPO, as patient will have surgery performed under local anesthesia Prior to surgery, patient should be undergoing hot saline soaks for encouragement of spontaneous drainage of infection Patient understands this and is amenable to this plan Plan Patient on 15 minute checks for safety. Admitted to [facility]. CV. Work with treatment team to do collateral for CSS/CCS if possible for aftercare. Will refer patient to [facility] upon discharge. Seen by Hospitalist on 06/14/25. Hospitalist saw patient on 06/15/25 regarding Superficial foreign body of right thumb With evidence of surrounding superficial purulence Plan is to take the patient to the operating room at some point in the next few weeks for the following procedures: Right thumb foreign body removal I and D under local Patient educated on: diagnosis, medication risk/benefits, substance abuse and therapeutic strategies Informed Consent: understands and further education needed Reason for continued inpatient stay Substantial Risk for: med/psych decompensation Time Spent With Patient Time: Total time managing care of this patient today ____ minutes.
[2025-06-15 20:00] VITALS: BP 131/74; PULSE 77; TEMP 36.1; O2SAT 98
--- NOTE | 2025-06-16 07:45 | HO.PSYCHPN ---
Subjective Subjective Date of Service: 06/16/25 Reason For Visit: depression Subjective Notes: Conditional Voluntary Healthcare Proxy: No Guardianship: No Medical Problems Affecting Mental Status: No Interim History: 45 yo reports sleeping, meds are ok - denies current si- shows me foot with flat foot and area of pain on foot- after stepping on something- had become agitated after dc from er after seen for this injury- Medication Compliance: Yes Side effects from medications: No Attending Groups: Yes Review of Systems Acute medical concerns: No Medical Review of Systems: unchanged Mental Status Exam Mental Status Exam Patient Appearance: Well Grooomed and Appropriate Patient Orientation: Person, Place, Time and Situation Level of Consciousness: Awake Patient Behavior: Appropriate, Talkative, Cooperative, Restless and Good Eye Contact Mood Description: Expansive Affect Description: Happy Patient Cognition Impaired: No Ability to Follow Directions: Fair Speech Pattern: Clear Hallucinations: None Delusions: Not Present Thought Process: Intact Thought Content: positive for Racing Depressive Symptoms: Back Pain Abnormal Motor Activity Signs and Symptoms: Restlessness Judgement: Fair Diagnostics Vital Signs (24Hr): Vital Signs - 24 hr 06/15/25 08:00 06/15/25 20:00 Temperature 98.2 F 97.0 F Pulse Rate 57 77 Respiratory Rate 16 Blood Pressure 117/68 131/74 Pulse Oximetry 99 98 Oxygen Delivery Method Room Air Room Air BMI result Body Mass Index 31.9 Labs 06/14/25 00:00 06/15/25 08:58 Labs: Laboratory Results - last 48 hr 06/14/25 06/15/25 09:50 08:58 Sodium 142 Potassium 4.0 Chloride 106 Carbon Dioxide 29 Anion Gap 11 L BUN 14 Creatinine 0.80 Estim Creat Clear Calc 127.7 Estimated GFR > 60 Random Glucose 118 H Estimat Average Glucose 117 Hemoglobin A1c % 5.7 Calcium 9.1 Total Bilirubin 0.6 AST 17 ALT 21 Alkaline Phosphatase 69 Total Protein 7.0 Albumin 4.4 Triglycerides 150 H Cholesterol 188 LDL Cholesterol, Calc 101 H HDL Cholesterol 57 TSH 0.77 Free T4 1.03 Urine Color Yellow Urine Appearance Clear Urine pH 6.0 Ur Specific [place] 1.020 Urine Protein Negative Urine Glucose (UA) Negative Urine Ketones Trace Urine Blood Trace H Urine Nitrite Negative Ur Leukocyte Esterase Negative Urine RBC 3-5 H Urine WBC 0-5 Ur Squamous Epith Cells 0-2 Urine Bacteria None Seen Hyaline Casts 0-2 Urine Opiates Screen Not Detected Ur Buprenorphine Scrn Not Detected Ur Oxycodone Screen Not Detected Urine Methadone Screen Not Detected Urine Fentanyl Screen Not Detected Ur Barbiturates Screen Not Detected Ur Phencyclidine Scrn Not Detected Ur Amphetamines Screen Not Detected U Benzodiazepines Scrn Not Detected Urine Cocaine Screen POSITIVE H U Marijuana (THC) Screen POSITIVE H Medications Medications Current Medications Acetaminophen (Acetaminophen 325 Mg Tablet) 650 mg PO Q6H PRN PRN Reason: Headache/Pain, Scale 1-10 Last Admin: 06/15/25 21:25 Dose: 650 mg Al Hydroxide/Mg Hydroxide (Magnesium Hydrox/Alum Hydrox 30 Ml Oral.Susp) 30 ml PO Q6H PRN PRN Reason: Heartburn/Nausea Aspirin (Aspirin Enteric Coated 81 Mg Tablet.Dr) 81 mg PO DAILY [facility] Last Admin: 06/15/25 09:00 Dose: 81 mg Atorvastatin Calcium (Atorvastatin Calcium 40 Mg Tablet) 40 mg PO BEDTIME [facility] Last Admin: 06/15/25 21:26 Dose: 40 mg Hydroxyzine HCl (Hydroxyzine Hcl 25 Mg Tablet) 25 mg PO BID PRN PRN Reason: mild anxiety Last Admin: 06/14/25 00:54 Dose: 25 mg Magnesium Hydroxide (Milk Of Magnesia 30 Ml Oral.Susp) 30 ml PO DAILY PRN PRN Reason: Constipation Naltrexone HCl (Naltrexone Hcl 50 Mg Tablet) 50 mg PO DAILY [facility] Last Admin: 06/15/25 09:01 Dose: 50 mg Nicotine (Nicotine 21 Mg Patch.Td24) 21 mg TRANSDERMA DAILY PRN PRN Reason: nicotine craving Nicotine Polacrilex (Nicotine Polacrilex 2 Mg Gum) 2 mg BUCCAL Q2H PRN PRN Reason: Nicotine Cravings Olanzapine (Olanzapine 5 Mg Tablet) 5 mg PO BID PRN PRN Reason: agitation Last Admin: 06/15/25 16:39 Dose: 5 mg Quetiapine Fumarate (Quetiapine Fumarate 50 Mg Tablet) 50 mg PO DAILY [facility] Last Admin: 06/15/25 09:01 Dose: 50 mg Quetiapine Fumarate (Quetiapine Fumarate 100 Mg Tablet) 100 mg PO DAILY PRN PRN Reason: agitation/psychosis Quetiapine Fumarate (Quetiapine Fumarate 50 Mg Tablet) 150 mg PO BEDTIME [facility] Last Admin: 06/15/25 21:26 Dose: 150 mg Trazodone HCl (Trazodone Hcl 50 Mg Tablet) 50 mg PO BEDTIME MRX1 PRN PRN Reason: Insomnia Last Admin: 06/15/25 21:26 Dose: 50 mg Allergies Allergies Allergy/AdvReac Type Severity Reaction Status Date / Time No Known Allergies (No Known Allergy Verified 06/13/25 23:48 Allergies*) Assessment & Plan Assessment & Plan (1) Foreign body of thumb, right, superficial, infected: Status: Acute Code(s): S60.351A - Superficial foreign body of right thumb, initial encounter; L08.9 - Local infection of the skin and subcutaneous tissue, unspecified (2) Bipolar 1 disorder: Status: Chronic Code(s): F31.9 - Bipolar disorder, unspecified (3) Polysubstance abuse: Status: Acute Code(s): F19.10 - Other psychoactive substance abuse, uncomplicated (4) HLD (hyperlipidemia): Status: Acute Code(s): E78.5 - Hyperlipidemia, unspecified Plan HPI: Patient is a 45 year old, single, bilingual, male with hx of Bipolar previously known to the CARE team from two prior assessments on 11/26/2020 and . His last assessment resulted in an [facility] admission to [facility] . Patient was BIBA [place] [facility] to address ongoing pain he had been experiencing in his left foot. Patient was ultimately discharged, but soon returned to triage stating he was homeless after being kicked out of his girlfriend's apartment and SI no plan. Formulation/clinical reasoning: Patient minimizes substance use, denies SA but Utox +CONNIE and THC. BAL 175. Can be irritable and loud, inconsistent report regarding housing, mild labile mood, can be impulsive. Currently no SI/SIB/HI/AVH, no issue with sleep or appetite. Speech is loud with normal rate, no pressure, but appear with mild labile. He can be irritable and impulsive. Thought content is WNL but can experience AH and self dialogue. Thought process is organized and goal directed. Interested in Vivitrol and [facility] treatment program for substance use. Given hx of Bipolar, patient would be benefit for restrictive environment for his own safety, medication adjustment as needs and refer patient out to OP psychiatric services. Hospital course: 06/14/25: Continue with all home meds. Monitor for W/D from CONNIE or alcohol. He does not W/D symptoms at the assement time. Seroquel 50mg BID, 150mg at HS and PRN 100mg. Naltrexone 50mg daily for alcohol craving. He would like to get Vivitrol GOME[facility] upon discharge. 06/15/25: Patient slept well. Went to bed early last night and did not take HS meds yesterday. Encourage patient to consistent with meds to help with his mood. Report chronic SI/VH but not current now. He is visible, social, overly bright and loud but pleasant upon approach. Patient told nursing he was taking Clonazepam from outside but there was no record of him given or prescribed. Utox +CONNIE and THC only. Patient also signed CV, he says he called his job and they said he should take time off to take care of his health first. 06/16 - continued velvet- no si - ah, cooperative with medication hoping to get to [facility] Patient was seen by hospitalist. Per Hospitalist note: 1. Superficial foreign body of right thumb With evidence of surrounding superficial purulence No evidence of disseminated infection I educated the patient about the condition. I discussed both operative and nonoperative treatment options. The patient would like to proceed with surgery. The risks and benefits of operative treatment were discussed with the patient and the patient wishes to proceed with surgery. These risks include, but are not limited to, risk of damage to blood vessels, nerves, tendons, infection, recurrence, incomplete relief of preoperative symptoms, persistent pain, possible need for further surgery, and the risks associated with regional blocks and/or anesthesia. Plan is to take the patient to the operating room at some point in the next few weeks for the following procedures: 1. Right thumb foreign body removal I and D under local All of the preoperative paperwork including the consent was discussed today. All of the patient's questions were answered in the clinic today. The patient understands that they will be in contact with our project scheduler to discuss scheduling their procedure. Patient denies diabetes, blood thinners, asthma, heart issues, lung issues, kidney issues, or current smoking. Patient can be discharged if cleared prior to surgery, as he is on the OR schedule Patient is aware that if he is discharged, he will need to present to short stay surgery on Wednesday for foreign body removal No need for NPO, as patient will have surgery performed under local anesthesia Prior to surgery, patient should be undergoing hot saline soaks for encouragement of spontaneous drainage of infection Patient understands this and is amenable to this plan Plan Patient on 15 minute checks for safety. Admitted to . CV. Work with treatment team to do collateral for CSS/CCS if possible for aftercare. Will refer patient to [facility] clinic upon discharge. Seen by Hospitalist on 06/14/25. Hospitalist saw patient on 06/15/25 regarding Superficial foreign body of right thumb With evidence of surrounding superficial purulence Plan is to take the patient to the operating room at some point in the next few weeks for the following procedures: Right thumb foreign body removal I and D under local Patient educated on: medication risk/benefits Informed Consent: understands Reason for continued inpatient stay Substantial Risk for: inability to function and rapid decompensation Time Spent With Patient Time: Total time managing care of this patient today ____ minutes.
[2025-06-16 08:00] VITALS: BP 164/76; PULSE 61; RESP 18; TEMP 36.9; O2SAT 99
[2025-06-16] MEDS: Aspirin Enteric Coated 81 MG TABLET.DR PO (08:13)
[2025-06-16] MEDS: Lidocaine 4 % Patch ADH..PATCH 3 PATCH TRANSDERMA (14:43)
[2025-06-16 20:00] VITALS: BP 143/86; PULSE 84; RESP 18; TEMP 36.8; O2SAT 98
[2025-06-17 08:00] VITALS: BP 108/63; PULSE 79; RESP 18; TEMP 36.8; O2SAT 98
--- NOTE | 2025-06-17 08:12 | HO.PSYCHPN ---
Subjective Subjective Date of Service: 06/17/25 Reason For Visit: depression Subjective Notes: Conditional Voluntary Interim History: 45 yo HM who had incident earlier today where he was agitated with staff and patients, threatening around missing clothing- which was found in laundry- people think I am crazy Pt making bed when seen by this provider- co irritable lmood- doesn't want seroquel in ongoing way due to weight problem- Discussed topamax trial with pt for sub abuse /etoh and mood- denies hx kidney stones- ?inc prns for agita= Pt hoping to go to [facility] Medication Compliance: Yes Side effects from medications: No Attending Groups: Yes Review of Systems Acute medical concerns: No Medical Review of Systems: unchanged Mental Status Exam Mental Status Exam Patient Appearance: Well Grooomed Patient Orientation: Person, Place, Time and Situation Level of Consciousness: Awake Patient Behavior: Hyperactive, Restless, Belligerent (at times), Verbal Threats, Resistive to Care (at times) and Poor Eye Contact Mood Description: Angry Affect Description: Labile Patient Cognition Impaired: No Ability to Follow Directions: Fair (-poor depending on moment) Speech Pattern: Clear Hallucinations: None Delusions: Paranoid Ideation (? vs reactive/angry/impulsive) Thought Process: Intact and Goal Oriented Thought Content: positive for Racing Depressive Symptoms: Increased Irritability and Significant Weight Gain Abnormal Motor Activity Signs and Symptoms: Restlessness Judgement: Fair (-poor) Diagnostics Vital Signs (24Hr): Vital Signs - 24 hr 06/16/25 20:00 06/17/25 08:00 Temperature 98.3 F 98.2 F Pulse Rate 84 79 Respiratory Rate 18 18 Blood Pressure 143/86 H 108/63 Pulse Oximetry 98 98 Oxygen Delivery Method Room Air Room Air BMI result Body Mass Index 31.9 Labs 06/14/25 00:00 06/15/25 08:58 Labs: Laboratory Results - last 48 hr 06/15/25 08:58 Sodium 142 Potassium 4.0 Chloride 106 Carbon Dioxide 29 Anion Gap 11 L BUN 14 Creatinine 0.80 Estim Creat Clear Calc 127.7 Estimated GFR > 60 Random Glucose 118 H Estimat Average Glucose 117 Hemoglobin A1c % 5.7 Calcium 9.1 Total Bilirubin 0.6 AST 17 ALT 21 Alkaline Phosphatase 69 Total Protein 7.0 Albumin 4.4 Triglycerides 150 H Cholesterol 188 LDL Cholesterol, Calc 101 H HDL Cholesterol 57 TSH 0.77 Free T4 1.03 Medications Medications Current Medications Acetaminophen (Acetaminophen 325 Mg Tablet) 650 mg PO Q6H PRN PRN Reason: Headache/Pain, Scale 1-10 Last Admin: 06/15/25 21:25 Dose: 650 mg Al Hydroxide/Mg Hydroxide (Magnesium Hydrox/Alum Hydrox 30 Ml Oral.Susp) 30 ml PO Q6H PRN PRN Reason: Heartburn/Nausea Aspirin (Aspirin Enteric Coated 81 Mg Tablet.Dr) 81 mg PO DAILY [facility] Last Admin: 06/16/25 08:13 Dose: 81 mg Atorvastatin Calcium (Atorvastatin Calcium 40 Mg Tablet) 40 mg PO BEDTIME [facility] Last Admin: 06/16/25 23:41 Dose: 40 mg Hydroxyzine HCl (Hydroxyzine Hcl 25 Mg Tablet) 25 mg PO BID PRN PRN Reason: mild anxiety Last Admin: 06/16/25 23:41 Dose: 25 mg Lidocaine (Lidocaine 4 % Patch Adh..Patch) 3 patch TRANSDERMA DAILY [facility]; Protocol Last Admin: 06/16/25 14:43 Dose: 3 patch Magnesium Hydroxide (Milk Of Magnesia 30 Ml Oral.Susp) 30 ml PO DAILY PRN PRN Reason: Constipation Naltrexone HCl (Naltrexone Hcl 50 Mg Tablet) 50 mg PO DAILY [facility] Last Admin: 06/16/25 08:13 Dose: 50 mg Nicotine (Nicotine 21 Mg Patch.Td24) 21 mg TRANSDERMA DAILY PRN PRN Reason: nicotine craving Nicotine Polacrilex (Nicotine Polacrilex 2 Mg Gum) 2 mg BUCCAL Q2H PRN PRN Reason: Nicotine Cravings Olanzapine (Olanzapine 5 Mg Tablet) 5 mg PO BID PRN PRN Reason: agitation Last Admin: 06/15/25 16:39 Dose: 5 mg Quetiapine Fumarate (Quetiapine Fumarate 50 Mg Tablet) 50 mg PO DAILY [facility] Last Admin: 06/16/25 08:14 Dose: Not Given Quetiapine Fumarate (Quetiapine Fumarate 100 Mg Tablet) 100 mg PO DAILY PRN PRN Reason: agitation/psychosis Quetiapine Fumarate (Quetiapine Fumarate 50 Mg Tablet) 150 mg PO BEDTIME [facility] Last Admin: 06/17/25 00:26 Dose: 150 mg Trazodone HCl (Trazodone Hcl 50 Mg Tablet) 50 mg PO BEDTIME MRX1 PRN PRN Reason: Insomnia Last Admin: 06/17/25 00:26 Dose: 50 mg Allergies Allergies Allergy/AdvReac Type Severity Reaction Status Date / Time No Known Allergies (No Known Allergy Verified 06/13/25 23:48 Allergies*) Assessment & Plan Assessment & Plan (1) Foreign body of thumb, right, superficial, infected: Status: Acute Code(s): S60.351A - Superficial foreign body of right thumb, initial encounter; L08.9 - Local infection of the skin and subcutaneous tissue, unspecified (2) Bipolar 1 disorder: Status: Chronic Code(s): F31.9 - Bipolar disorder, unspecified (3) Polysubstance abuse: Status: Acute Code(s): F19.10 - Other psychoactive substance abuse, uncomplicated (4) HLD (hyperlipidemia): Status: Acute Code(s): E78.5 - Hyperlipidemia, unspecified Plan HPI: Patient is a 45 year old, single, bilingual, male with hx of Bipolar previously known to the CARE team from two prior assessments on 11/26/2020 and . [facility] . Patient was BIBA to the [facility] to address ongoing pain he had been experiencing in his left foot. Patient was ultimately discharged, but soon returned to triage stating he was homeless after being kicked out of his girlfriend's apartment and SI no plan. Formulation/clinical reasoning: Patient minimizes substance use, denies SA but Utox +CONNIE and THC. BAL 175. Can be irritable and loud, inconsistent report regarding housing, mild labile mood, can be impulsive. Currently no SI/SIB/HI/AVH, no issue with sleep or appetite. Speech is loud with normal rate, no pressure, but appear with mild labile. He can be irritable and impulsive. Thought content is WNL but can experience AH and self dialogue. Thought process is organized and goal directed. Interested in Vivitrol and [facility] treatment program for substance use. Given hx of Bipolar, patient would be benefit for restrictive environment for his own safety, medication adjustment as needs and refer patient out to OP psychiatric services. Hospital course: 06/14/25: Continue with all home meds. Monitor for W/D from CONNIE or alcohol. He does not W/D symptoms at the assement time. Seroquel 50mg BID, 150mg at HS and PRN 100mg. Naltrexone 50mg daily for alcohol craving. He would like to get Vivitrol [facility] upon discharge. 06/15/25: Patient slept well. Went to bed early last night and did not take HS meds yesterday. Encourage patient to consistent with meds to help with his mood. Report chronic SI/VH but not current now. He is visible, social, overly bright and loud but pleasant upon approach. Patient told nursing he was taking Clonazepam from outside but there was no record of him given or prescribed. Utox +CONNIE and THC only. Patient also signed CV, he says he called his job and they said he should take time off to take care of his health first. 06/16 - continued velvet- no si - ah, cooperative with medication hoping to get to [facility] 06/17 add in topamax for etoh and bipolar- may need admin dc if continues to threaten/staff/pt if felt to not be part of bipolar- Patient was seen by hospitalist. Per Hospitalist note: 1. Superficial foreign body of right thumb With evidence of surrounding superficial purulence No evidence of disseminated infection I educated the patient about the condition. I discussed both operative and nonoperative treatment options. The patient would like to proceed with surgery. The risks and benefits of operative treatment were discussed with the patient and the patient wishes to proceed with surgery. These risks include, but are not limited to, risk of damage to blood vessels, nerves, tendons, infection, recurrence, incomplete relief of preoperative symptoms, persistent pain, possible need for further surgery, and the risks associated with regional blocks and/or anesthesia. Plan is to take the patient to the operating room at some point in the next few weeks for the following procedures: 1. Right thumb foreign body removal I and D under local All of the preoperative paperwork including the consent was discussed today. All of the patient's questions were answered in the clinic today. The patient understands that they will be in contact with our mailing clerk to discuss scheduling their procedure. Patient denies diabetes, blood thinners, asthma, heart issues, lung issues, kidney issues, or current smoking. Patient can be discharged if cleared prior to surgery, as he is on the OR schedule Patient is aware that if he is discharged, he will need to present to short stay surgery on Wednesday for foreign body removal No need for NPO, as patient will have surgery performed under local anesthesia Prior to surgery, patient should be undergoing hot saline soaks for encouragement of spontaneous drainage of infection Patient understands this and is amenable to this plan Plan Patient on 15 minute checks for safety. Admitted to . CV. Work with treatment team to do collateral for CSS/CCS if possible for aftercare. Will refer patient to [facility] clinic upon discharge. Seen by Hospitalist on 06/14/25. Hospitalist saw patient on 06/15/25 regarding Superficial foreign body of right thumb With evidence of surrounding superficial purulence Plan is to take the patient to the operating room at some point in the next few weeks for the following procedures: Right thumb foreign body removal I and D under local Patient educated on: medication risk/benefits and substance abuse Informed Consent: understands and further education needed (around behaviors on unit /impulsivity) Reason for continued inpatient stay Substantial Risk for: harm to others and rapid decompensation Time Spent With Patient Time: Total time managing care of this patient today ____ minutes.
[2025-06-17] MEDS: Aspirin Enteric Coated 81 MG TABLET.DR PO (08:29)
[2025-06-17] MEDS: Lidocaine 4 % Patch ADH..PATCH 3 PATCH TRANSDERMA (08:42)
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
[2025-06-17 20:00] VITALS: BP 168/69; PULSE 86; RESP 18; TEMP 36.3; O2SAT 98
[2025-06-18 07:47] VITALS: BP 118/60; PULSE 60; TEMP 36.9; O2SAT 99
[2025-06-18] MEDS: Aspirin Enteric Coated 81 MG TABLET.DR PO (08:33)
--- NOTE | 2025-06-18 09:20 | P.DS_ITS ---
DS: Providers Provider Date of Service: 06/19/25 Date of admission: 06/14/25 12:05 Date of discharge: 06/19/25 Primary care physician: Unknown Physician Attending physician on admission: Kaylee Benson Consults: 06/14/25 15:23 Consult to Orthopedics Routine Consulting Provider: [facility] Reason for consultation: Small foreign body in right thumb Discharging clinician: Kaylee Benson DS: Diagnosis Discharge Diagnosis (1) Foreign body of thumb, right, superficial, infected: Status: Acute (2) Bipolar 1 disorder: Status: Chronic (3) Polysubstance abuse: Status: Acute (4) HLD (hyperlipidemia): Status: Acute DS: Medications Discharge Medications Home Medications: Previous Rx's ?Medication ?Instructions ?Recorded quetiapine 100 mg tablet 100 mg PO DAILY PRN 05/14/25 agitation/psychosis 30 days #30 tabs aspirin 81 mg tablet,delayed 81 mg PO DAILY Heart cond ition 30 06/18/25 release days #30 tabs atorvastatin 40 mg tablet 40 mg PO BEDTIME HLD 30 days #30 06/18/25 tabs hydroxyzine HCl 25 mg tablet 25 mg PO BID PRN mild anx iety 30 06/18/25 days #60 tabs lidocaine 4 % topical patch 3 patch transdermal DAILY pain 06/18/25 (Lidocaine Pain Relief) #15 ea naltrexone 50 mg tablet 50 mg PO DAILY Alcohol cravi ng 30 06/18/25 days #30 tabs quetiapine 150 mg tablet 150 mg PO BEDTIME mood 30 da ys #30 06/18/25 tabs quetiapine 50 mg tablet 50 mg PO DAILY mood 30 days #30 06/18/25 tabs topiramate 25 mg tablet 25 mg PO BID for CONNIE craving / Mood 06/18/25 #60 tabs Mental Status Exam Mental Status Exam Narrative: Patient presents well-groomed, casually dressed. Affect is euthymic with full range. Speech is clear and coherent. Thought process is linear and logical. Thought content is appropriate and relevant. Patient denies suicidal or homicidal ideation intent or plan. No overt psychotic symptoms elicited. Insight is good. Judgment is good. Data Data Completed and Pending Completed studies during hospitalization [Text1]: 06/14/25 06/14/25 06/15/25 00:00 09:50 08:58 WBC 10.8 RBC 4.24 L Hgb 13.0 L Hct 36.8 L MCV 86.8 MCH 30.7 MCHC 35.3 RDW 14.1 Plt Count 364 MPV 8.7 L Immature Gran % (Auto) 0.3 Neut % (Auto) 57.3 Lymph % (Auto) 33.0 [place] % (Auto) 7.1 Eos % (Auto) 1.8 Baso % (Auto) 0.5 Lymph # (Auto) 3.6 [place] # (Auto) 0.8 Eos # (Auto) 0.2 Baso # (Auto) 0.1 Abs Immat Gran (auto) 0.03 Absolute Neuts (auto) 6.2 Absolute Nucleated RBC 0.000 Nucleated RBC % (auto) 0.0 Sodium 144 142 Potassium 3.9 4.0 Chloride 108 106 Carbon Dioxide 24 29 Anion Gap 16 11 L BUN 7 L 14 Creatinine 0.74 0.80 Estim Creat Clear Calc 138.1 127.7 Estimated GFR > 60 > 60 Random Glucose 94 118 H Estimat Average Glucose 117 Hemoglobin A1c % 5.7 Calcium 8.9 9.1 Total Bilirubin 0.4 0.6 AST 27 17 ALT 25 21 Alkaline Phosphatase 68 69 Total Protein 7.4 7.0 Albumin 4.7 4.4 Triglycerides 150 H Cholesterol 188 LDL Cholesterol, Calc 101 H HDL Cholesterol 57 TSH 0.77 Free T4 1.03 Urine Color Yellow Urine Appearance Clear Urine pH 6.0 Ur Specific [place] 1.020 Urine Protein Negative Urine Glucose (UA) Negative Urine Ketones Trace Urine Blood Trace H Urine Nitrite Negative Ur Leukocyte Esterase Negative Urine RBC 3-5 H Urine WBC 0-5 Ur Squamous Epith Cells 0-2 Urine Bacteria None Seen Hyaline Casts 0-2 Urine Opiates Screen Not Detected Ur Buprenorphine Scrn Not Detected Ur Oxycodone Screen Not Detected Urine Methadone Screen Not Detected Urine Fentanyl Screen Not Detected Ur Barbiturates Screen Not Detected Ur Phencyclidine Scrn Not Detected Ur Amphetamines Screen Not Detected U Benzodiazepines Scrn Not Detected Urine Cocaine Screen POSITIVE H U Marijuana (THC) Screen POSITIVE H Ethyl Alcohol 170 DS: Summary Hospital Course Hospital Course: HPI: Patient is a 45 year old, single, bilingual, male with hx of Bipolar previously known to the CARE team from two prior assessments on 11/26/2020 and . [facility] . Patient was BIBA to the [facility] ED to address ongoing pain he had been experiencing in his left foot. Patient was ultimately discharged, but soon returned to triage stating he was homeless after being kicked out of his girlfriend's apartment and SI no plan. Formulation/clinical reasoning: Patient minimizes substance use, denies SA but Utox +CONNIE and THC. BAL 175. Can be irritable and loud, inconsistent report regarding housing, mild labile mood, can be impulsive. Currently no SI/SIB /HI/AVH, no issue with sleep or appetite. Speech is loud with normal rate, no pressure, but appear with mild labile. He can be irritable and impulsive. Thought content is WNL but can experience AH and self dialogue. Thought process is organized and goal directed. Interested in Vivitrol and long term acute care registered nurse treatment program for substance use. Given hx of Bipolar, patient would be benefit for restrictive environment for his own safety, medication adjustment as needs and refer patient out to OP psychiatric services. Hospital course: 06/14/25: Continue with all home meds. Monitor for W/D from CONNIE or alcohol. He does not W/D symptoms at the assement time. Seroquel 50mg BID, 150mg at HS and PRN 100mg. Naltrexone 50mg daily for alcohol craving. He would like to get Vivitrol GOMEZ upon discharge. 06/15/25: Patient slept well. Went to bed early last night and did not take HS meds yesterday. Encourage patient to consistent with meds to help with his mood. Report chronic SI/VH but not current now. He is visible, social, overly bright and loud but pleasant upon approach. Patient told nursing he was taking Clonazepam from outside but there was no record of him given or prescribed. Utox +CONNIE and THC only. Patient also signed CV, he says he called his job and they said he should take time off to take care of his health first. Patient was seen by hospitalist. Per Hospitalist note: Superficial foreign body of right thumb With evidence of surrounding superficial purulence No evidence of disseminated infection I educated the patient about the condition. I discussed both operative and nonoperative treatment options. The patient would like to proceed with surgery. The risks and benefits of operative treatment were discussed with the patient and the patient wishes to proceed with surgery. These risks include, but are not limited to, risk of damage to blood vessels, nerves, tendons, infection, recurrence, incomplete relief of preoperative symptoms, persistent pain, possible need for further surgery, and the risks associated with regional blocks and/or anesthesia. Plan is to take the patient to the operating room at some point in the next few weeks for the following procedures: 1. Right thumb foreign body removal I and D under local All of the preoperative paperwork including the consent was discussed today. All of the patient's questions were answered in the clinic today. The patient understands that they will be in contact with our zoology teacher to discuss scheduling their procedure. Patient denies diabetes, blood thinners, asthma, heart issues, lung issues, kidney issues, or current smoking. Patient can be discharged if cleared prior to surgery, as he is on the OR schedule Patient is aware that if he is discharged, he will need to present to short stay surgery on Wednesday for foreign body removal No need for NPO, as patient will have surgery performed under local anesthesia Prior to surgery, patient should be undergoing hot saline soaks for encouragement of spontaneous drainage of infection Patient understands this and is amenable to this plan 06/16 - continued velvet- no si - ah, cooperative with medication hoping to get to [facility]. 06/17 add in topamax for etoh and bipolar- may need admin dc if continues to threaten/staff/pt if felt to not be part of bipolar. 06/18/25: Patient was more visible in dining area earlier today but take nap and more quiet in his room. He is not loud and not having threatening behavior compare to weekend report. Report that in his room so he can control the voices. He declined I &D surgery for his Right thumb as he said the was able to get the foreign body out and it does not bother him anymore. He would discharge tomorrow and will stay with a friend of him after. Sleep and appetite are good. Less irritable,compliant with meds. Will send meds to preferred pharmacy. 06/19/25: patient denies safety, happy and ready to get back to his routine. He is exciting to back to work. Medication sent to preferred pharmacy. Time spent discussing smoking cessation with patient: 3 to 10 minutes Status at Discharge Cognitive/behavioral status at discharge: CONDITION ON DISCHARGE: CURRENT STATUS IT RELATES TO ADMISSION CRITERIA: Stable, improved. Improvements in depression, anxiety, and suicidal ideation. Improvements in sleep, energy, and appetite. and no hallucination or paranoia/delusional thought. Functional status at discharge: independent ambulation Overall status at discharge: patient is back to baseline Time Spent with Patient Time attestation: Total time managing care of this patient today ____ minutes. Time spent: Greater than 30 minutes Discharge Plan Discharge Anticipated Discharge Date/Time: 06/19/25 10:00 Patient Disposition: Home, Self-Care Discharge Diagnosis: Bipolar I, Alcohol use D/O, CONNIE use D/O. Hyperlipidemia [facility] [Other] - 06/20/25 4:30 pm Referral Note: Follow up intake appointment. Once you complete this initial appointment, you will be assigned a therapist and medication prescriber. [facility] [Other] - 1 Week Referral Note: *You are on the waitlist for CSS level of care. Please follow- up with the [facility] daily as you will benefit from substance use treatment. [facility] [Other] - 1 Week Referral Note: [facility] offers assistance with transportation, finances, housing/retirement and additional behavioral health resources. [facility] [Other] - 1 Week Referral Note: Please call to follow up with Orthopedic team regarding your right thumb foreign body and further treatment. [phone] Physician,Unknown J [Primary Care Provider, Medical] - 1 Week Referral Note: Pt encouraged to establish care with a PCP and to check if [facility] is taking new patients. Call [phone] Discharge Medications: New topiramate 25 mg Tablet 25 mg PO BID Qty: 60 0RF lidocaine [Lidocaine Pain Relief] 4 % Adhesive Patch,Medicated 3 patch transdermal DAILY Qty: 15 0RF Protocol: Apply to: Apply to: 2 to left fot around plantar fascia; one to back Continued atorvastatin 40 mg Tablet 40 mg PO BEDTIME 30 Days Qty: 30 0RF naltrexone 50 mg Tablet 50 mg PO DAILY 30 Days Qty: 30 0RF aspirin 81 mg Tablet,Delayed Release (Dr/Ec) 81 mg PO DAILY 30 Days Qty: 30 0RF hydroxyzine HCl 25 mg Tablet 25 mg PO BID PRN (Reason: mild anxiety) 30 Days Qty: 60 0RF quetiapine 50 mg Tablet 50 mg PO DAILY 30 Days Qty: 30 0RF quetiapine 150 mg tablet 150 mg PO BEDTIME 30 Days Qty: 30 0RF quetiapine 100 mg Tablet 100 mg PO DAILY PRN (Reason: agitation/psychosis) 30 Days Qty: 30 0RF Discharge Orders: Discharge Order (Routine); Ordered 06/19/25 Ordered By: Kaylee Benson Diet: Regular diet Activity on Discharge: No Restrictions Stand Alone Forms: Patient Portal Discharge page, Community Support Print Language: Bangladeshi Care Plan Goals: Maintain mood and safe behaviors Take medications as prescribed Continue to pursue sobriety Practice coping skills Continue with outpatient providers and reach out to them as needed Health Concerns: Mood stability and behaviors Sobriety Plan of Treatment: Follow up with your PCP, psychiatric provider and other outpatient providers regarding above concerns Take medications as prescribed Assessment: Assessment: Risk assessment at time of discharge: Patient was interviewed prior to discharge and found to be fully oriented and without any SI or HI. Patient has improved insight and judgment and wants to continue treatment. Patient is not in imminent risk of harm to self or others and has a safety plan that includes presenting to the closest ER or calling 911 if feeling unsafe. Patient has been observed closely by nursing and unit staff throughout admission; patient has not engaged in any behaviors that suggest dangerousness to self or others and has demonstrated appropriate behaviors and impulse control Discharge Date/Time: 06/19/25 11:35
[2025-06-18] MEDS: Lidocaine 4 % Patch ADH..PATCH 3 PATCH TRANSDERMA (13:03)
--- NOTE | 2025-06-18 19:48 | P.PNPSI_ITS ---
Subjective Subjective Date of Service: 06/18/25 Reason For Visit: depression Subjective Notes: [place] Warning and Conditional Voluntary Healthcare Proxy: No Guardianship: No Medical Problems Affecting Mental Status: No Interim History: Medical record and nursing notes reviewed; case discussed during rounds with team/nursing staff, and met with patient for supportive therapy/psychoeducation, as well as medication management. Patient was more visible in dining area earlier today but take nap and more quiet in his room. He is not loud and not having threatening behavior compare to weekend report. Report that in his room so he can control the voices. He declined I &D surgery for his Right thumb as he said the was able to get the foreign body out and it does not bother him anymore. He would discharge tomorrow and will stay with a friend of him after. Sleep and appetite are good. Less irritable,compliant with meds. Will send meds to preferred pharmacy. Medication Compliance: Yes Side effects from medications: No Attending Groups: Intermittent Review of Systems Acute medical concerns: No Medical Review of Systems: unchanged Review of Systems Review of Systems Yes all other systems are reviewed and are negative Mental Status Exam Mental Status Exam Narrative: Patient is alert and oriented; behavior is cooperative, improving in anxiety and depression; patient is not in distress; dressed in casual attire with kempt hair and adequate hygiene; mood is described as good affect congruent; eye contact appropriate; Speech is normal rate, normal to loud volume and prosody and not pressured; no psychomotor agitation/retardation present; thought process is organized but goal directed;. Thought content is WNL, pertinent to relevant topics and without any delusional content, or grandiosity; denies any SI/SIB/HI. Denies AH and there is no evidence of perceptual disturbance. Patient's insight and judgment improved/fair Diagnostics Vital Signs (24Hr): Vital Signs - 24 hr 06/17/25 20:00 06/18/25 07:47 Temperature 97.3 F 98.4 F Pulse Rate 86 60 Respiratory Rate 18 Blood Pressure 168/69 H 118/60 Pulse Oximetry 98 99 Oxygen Delivery Method Room Air Room Air BMI result Body Mass Index 31.9 Labs 06/14/25 00:00 06/15/25 08:58 Medications Medications Current Medications Acetaminophen (Acetaminophen 325 Mg Tablet) 650 mg PO Q6H PRN PRN Reason: Headache/Pain, Scale 1-10 Last Admin: 06/15/25 21:25 Dose: 650 mg Al Hydroxide/Mg Hydroxide (Magnesium Hydrox/Alum Hydrox 30 Ml Oral.Susp) 30 ml PO Q6H PRN PRN Reason: Heartburn/Nausea Aspirin (Aspirin Enteric Coated 81 Mg Tablet.Dr) 81 mg PO DAILY [facility] Last Admin: 06/18/25 08:33 Dose: 81 mg Atorvastatin Calcium (Atorvastatin Calcium 40 Mg Tablet) 40 mg PO BEDTIME [facility] Last Admin: 06/17/25 21:52 Dose: 40 mg Hydroxyzine HCl (Hydroxyzine Hcl 25 Mg Tablet) 25 mg PO BID PRN PRN Reason: mild anxiety Last Admin: 06/18/25 13:05 Dose: 25 mg Lidocaine (Lidocaine 4 % Patch Adh..Patch) 3 patch TRANSDERMA DAILY [facility]; Protocol Last Admin: 06/18/25 13:03 Dose: 2 patch Magnesium Hydroxide (Milk Of Magnesia 30 Ml Oral.Susp) 30 ml PO DAILY PRN PRN Reason: Constipation Naltrexone HCl (Naltrexone Hcl 50 Mg Tablet) 50 mg PO DAILY [facility] Last Admin: 06/18/25 08:33 Dose: 50 mg Nicotine (Nicotine 21 Mg Patch.Td24) 21 mg TRANSDERMA DAILY PRN PRN Reason: nicotine craving Nicotine Polacrilex (Nicotine Polacrilex 2 Mg Gum) 2 mg BUCCAL Q2H PRN PRN Reason: Nicotine Cravings Olanzapine (Olanzapine 5 Mg Tablet) 5 mg PO BID PRN PRN Reason: agitation Last Admin: 06/18/25 13:05 Dose: 5 mg Quetiapine Fumarate (Quetiapine Fumarate 50 Mg Tablet) 50 mg PO DAILY [facility] Last Admin: 06/18/25 08:33 Dose: 50 mg Quetiapine Fumarate (Quetiapine Fumarate 100 Mg Tablet) 100 mg PO DAILY PRN PRN Reason: agitation/psychosis Quetiapine Fumarate (Quetiapine Fumarate 200 Mg Tablet) 200 mg PO BEDTIME [facility] Last Admin: 06/17/25 21:52 Dose: 200 mg Topiramate (Topiramate 25 Mg Tablet) 25 mg PO BID [facility] Last Admin: 06/18/25 08:33 Dose: 25 mg Allergies Allergies Allergy/AdvReac Type Severity Reaction Status Date / Time No Known Allergies (No Known Allergy Verified 06/13/25 23:48 Allergies*) Assessment & Plan Assessment & Plan (1) Foreign body of thumb, right, superficial, infected: Status: Acute Code(s): S60.351A - Superficial foreign body of right thumb, initial encounter; L08.9 - Local infection of the skin and subcutaneous tissue, unspecified (2) Bipolar 1 disorder: Status: Chronic Code(s): F31.9 - Bipolar disorder, unspecified (3) Polysubstance abuse: Status: Acute Code(s): F19.10 - Other psychoactive substance abuse, uncomplicated (4) HLD (hyperlipidemia): Status: Acute Code(s): E78.5 - Hyperlipidemia, unspecified Plan HPI: Patient is a 45 year old, single, bilingual, male with hx of Bipolar previously known to the CARE team from two prior assessments on 11/26/2020 and . His last assessment resulted in an IPLOC admission to [facility] [place] M[facility] Unit . Patient was BIBA to the [facility] [place] ED to address ongoing pain he had been experiencing in his left foot. Patient was ultimately discharged, but soon returned to triage stating he was homeless after being kicked out of his girlfriend's apartment and SI no plan. Formulation/clinical reasoning: Patient minimizes substance use, denies SA but Utox +CONNIE and THC. BAL 175. Can be irritable and loud, inconsistent report regarding housing, mild labile mood, can be impulsive. Currently no SI/SIB/HI/AVH, no issue with sleep or appetite. Speech is loud with normal rate, no pressure, but appear with mild labile. He can be irritable and impulsive. Thought content is WNL but can experience AH and self dialogue. Thought process is organized and goal directed. Interested in Vivitrol and watermelon inspector treatment program for substance use. Given hx of Bipolar, patient would be benefit for restrictive environment for his own safety, medication adjustment as needs and refer patient out to OP psychiatric services. Hospital course: 06/14/25: Continue with all home meds. Monitor for W/D from CONNIE or alcohol. He does not W/D symptoms at the assement time. Seroquel 50mg BID, 150mg at HS and PRN 100mg. Naltrexone 50mg daily for alcohol craving. He would like to get Vivitrol GOMEZ upon discharge. 06/15/25: Patient slept well. Went to bed early last night and did not take HS meds yesterday. Encourage patient to consistent with meds to help with his mood. Report chronic SI/VH but not current now. He is visible, social, overly bright and loud but pleasant upon approach. Patient told nursing he was taking Clonazepam from outside but there was no record of him given or prescribed. Utox +CONNIE and THC only. Patient also signed CV, he says he called his job and they said he should take time off to take care of his health first. Patient was seen by hospitalist. Per Hospitalist note: 1. Superficial foreign body of right thumb With evidence of surrounding superficial purulence No evidence of disseminated infection I educated the patient about the condition. I discussed both operative and nonoperative treatment options. The patient would like to proceed with surgery. The risks and benefits of operative treatment were discussed with the patient and the patient wishes to proceed with surgery. These risks include, but are not limited to, risk of damage to blood vessels, nerves, tendons, infection, recurrence, incomplete relief of preoperative symptoms, persistent pain, possible need for further surgery, and the risks associated with regional blocks and/or anesthesia. Plan is to take the patient to the operating room at some point in the next few weeks for the following procedures: 1. Right thumb foreign body removal I and D under local All of the preoperative paperwork including the consent was discussed today. All of the patient's questions were answered in the clinic today. The patient understands that they will be in contact with our operating room surgical technologist to discuss scheduling their procedure. Patient denies diabetes, blood thinners, asthma, heart issues, lung issues, kidney issues, or current smoking. Patient can be discharged if cleared prior to surgery, as he is on the OR schedule Patient is aware that if he is discharged, he will need to present to short stay surgery on Wednesday for foreign body removal No need for NPO, as patient will have surgery performed under local anesthesia Prior to surgery, patient should be undergoing hot saline soaks for encouragement of spontaneous drainage of infection Patient understands this and is amenable to this plan 06/16 - continued velvet- no si - ah, cooperative with medication hoping to get to [facility]. 06/17 add in topamax for etoh and bipolar- may need admin dc if continues to threaten/staff/pt if felt to not be part of bipolar. 06/18/25: Patient was more visible in dining area earlier today but take nap and more quiet in his room. He is not loud and not having threatening behavior compare to weekend report. Report that in his room so he can control the voices. He declined I &D surgery for his Right thumb as he said the was able to get the foreign body out and it does not bother him anymore. He would discharge tomorrow and will stay with a friend of him after. Sleep and appetite are good. Less irritable,compliant with meds. Will send meds to preferred pharmacy. Plan Patient on 15 minute checks for safety. Admitted to . CV. Work with treatment team to do collateral for CSS/CCS if possible for aftercare. Will refer patient to [facility] clinic upon discharge. Seen by Hospitalist on 06/14/25. Hospitalist saw patient on 06/15/25 regarding Superficial foreign body of right thumb With evidence of surrounding superficial purulence Plan is to take the patient to the operating room at some point in the next few weeks for the following procedures: Right thumb foreign body removal I and D under local Patient educated on: diagnosis, medication risk/benefits, substance abuse and therapeutic strategies Informed Consent: understands Reason for continued inpatient stay Substantial Risk for: med/psych decompensation Time Spent With Patient Time: Total time managing care of this patient today ____ minutes.
[2025-06-18 20:00] VITALS: BP 140/90; PULSE 98; RESP 16; TEMP 36.3; O2SAT 98
[2025-06-19] MEDS: Aspirin Enteric Coated 81 MG TABLET.DR PO (08:41)
== END 2025-06-19 11:35 | disposition home or self-care (01) | DRG 885 ==
LOC: HO.ED 06-14 12:12 → HO.PM5 06-14 12:45
PROVIDERS: Admitting Provider Nurse Practitioner Psychiatric/Mental Health; Emergency Provider Emergency Medicine; Visit Provider Nurse Practitioner Psychiatric/Mental Health
DX: F31.9 Bipolar disorder, unspecified (principal); R45.851 Suicidal ideations; Y90.6 Blood alcohol level of 120-199 mg/100 ml; F14.90 Cocaine use, unspecified, uncomplicated; M79.5 Residual foreign body in soft tissue; F19.10 Other psychoactive substance abuse, uncomplicated; E78.5 Hyperlipidemia, unspecified; Z86.73 Personal history of transient ischemic attack (TIA), and cerebral infarction without residual deficits; Z79.899 Other long term (current) drug therapy
CPT/HCPCS: 36415; 80053; 80061; 80307; 81001; 83036; 84439; 84443; 85025; 93005; 99285; S9485

== ENCOUNTER → 2025-06-14 07:44 | Outpatient (BNV) | payer MEDICARE, SELFPAY | PROVIDERS: Admitting Provider Nurse Practitioner Psychiatric/Mental Health; Emergency Provider Emergency Medicine; Visit Provider Internal Medicine Cardiovascular Disease | DX: Z13.6 Encounter for screening for cardiovascular disorders (principal) | CPT/HCPCS: 93010 ==

== ENCOUNTER → 2025-06-14 12:05 | Outpatient (BNV) | payer MEDICARE, SELFPAY | PROVIDERS: Admitting Provider Nurse Practitioner Psychiatric/Mental Health; Emergency Provider Emergency Medicine; Visit Provider Nurse Practitioner Psychiatric/Mental Health | DX: F31.9 Bipolar disorder, unspecified (principal); F19.10 Other psychoactive substance abuse, uncomplicated; F10.20 Alcohol dependence, uncomplicated; E78.5 Hyperlipidemia, unspecified | CPT/HCPCS: 90792 ==

== ENCOUNTER → 2025-06-14 12:05 | Outpatient (BNV) | payer MEDICARE, SELFPAY | PROVIDERS: Admitting Provider Nurse Practitioner Psychiatric/Mental Health; Emergency Provider Emergency Medicine; Visit Provider Nurse Practitioner Family | DX: E78.5 Hyperlipidemia, unspecified (principal) | CPT/HCPCS: 99221 ==

== ENCOUNTER → 2025-06-14 12:05 | Outpatient (BNV) | payer MEDICARE, SELFPAY | PROVIDERS: Admitting Provider Nurse Practitioner Psychiatric/Mental Health; Emergency Provider Emergency Medicine | DX: S60.351A Superficial foreign body of right thumb, initial encounter (principal); L08.9 Local infection of the skin and subcutaneous tissue, unspecified | CPT/HCPCS: 99223 ==

== ENCOUNTER 2025-06-29 22:00 | Inpatient (IN) | payer MEDICARE, SELFPAY ==
[2025-06-29 22:03] VITALS: BP 144/78; PULSE 108; O2SAT 97
[2025-06-29 22:08] VITALS: BP 126/80; PULSE 115; RESP 20; TEMP 36.2; O2SAT 97; BMI 33.4
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
[2025-06-29 22:51] LABS: MANUAL DIFF FLAG NO
[2025-06-29 22:52] LABS: Hematocrit 40.7 % (42.0-52.0); Hemoglobin 14.1 g/dl (14.0-18.0); Imm Gran Abs Auto 0.05 X10*3/uL (0.00-0.03); Imm Gran Pct Auto 0.4 % (0.0-0.4); Lymphocytes Absolute Auto 4.6 X10*3/uL (1.2-4.9); Mean Corpuscular HGB Conc 34.6 g/dl (31.0-36.0); Mean Corpuscular Hemoglobin 30.2 pg (27.0-33.0); Mean Corpuscular Volume 87.2 fL (80.0-98.0); NRBC Abs Auto 0.000 X10*3/uL (0.0-0.012); NRBC Pct Auto 0.0 /100WBC (0.0-0.2); Platelet Count 439 X10*3/uL (160-400); Red Blood Count 4.67 X10*6/uL (4.60-5.80); White Blood Count 13.9 X10*3/uL (4.8-10.8)
[2025-06-29 23:03] LABS: Cannabinoid Screen Urine POSITIVE (Not Detect)
[2025-06-29 23:04] LABS: Anion Gap 15 (12-20); Blood Urea Nitrogen 8 mg/dL (9-16); Calcium 9.0 mg/dL (8.4-10.2); Carbon Dioxide 23 mmol/L (22-29); Chloride 106 mmol/L (96-108); Creatinine Clr Calc Pharmacy 139.4; Estimated Glomerular Filt Rate > 60; Potassium 3.6 mmol/L (3.3-5.1); Sodium 140 mmol/L (135-145)
[2025-06-29 23:07] LABS: Acetaminophen LAB < 3 mcg/mL (<30); Salicylate < 5.0 mg/dL (15-30)
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
--- NOTE | 2025-06-29 23:25 | PC.NURSE ---
pt requested medication for anxiety/restlessness. pt medicated per MAR
--- NOTE | 2025-06-29 23:32 | ED.GENADULT ---
HPI - General Adult General Chief complaint: Psychiatric Symptoms Stated complaint: crisis Time Seen by Provider: 06/29/25 22:14 Source: patient Limitations: no limitations History of Present Illness ED Provider: Nya Reis PA-C HPI narrative: 45M with past medical history of polysubstance use, alcohol use disorder on vivitrol, depression, schizophrenia, bipolar 1 disorder, HLD, and recent stroke in Apr was BIBA for an acute mental health crisis. Patient shares he had a court appearance today for attempted murder which has left him distraught. Endorsing SI, denies plan. Denies access to firearms. States he wants to hurt his brother and/or neighbor whom got him into this predicament. Shares he feels safe here and would not be safe anywhere else with the risk of hurting himself and/or this other person. Endorsing daily alcohol use of approximately a 12 pack of beer. States he drank a pint of hard liquor and a 12 pack today. Last drink 4pm. Denies history of withdrawal, withdrawal seizures, delirium tremens. Endorsing cannabis, denies other substance use. Shares the vivitrol has been helping curb his cocaine instead of alcohol cravings. Related Data Previous Rx's ?Medication ?Instructions ?Recorded aspirin 81 mg tablet,delayed 81 mg PO DAILY Heart condition 06/18/25 release days #30 tabs atorvastatin 40 mg tablet 40 mg PO BEDTIME HLD 30 days #30 06/18/25 tabs hydroxyzine HCl 25 mg tablet 25 mg PO BID PRN mild anxiety 06/18/25 days #60 tabs naltrexone 50 mg tablet 50 mg PO DAILY Alcohol craving 06/18/25 days #30 tabs topiramate 25 mg tablet 25 mg PO BID for CONNIE craving/ Mood 06/18/25 #60 tabs divalproex 500 mg tablet,extended 500 mg PO BEDTIME #7 tabs 07/05/25 release 24 hr folic acid 1 mg tablet 1 mg PO DAILY #7 tabs 07/05/25 ibuprofen 600 mg tablet 600 mg PO Q6H PRN foot pain #0 tabs 07/05/25 prazosin 1 mg capsule 1 mg PO BEDTIME #7 caps 07/05/25 risperidone 1 mg tablet 1 mg PO BID #14 tabs 07/05/25 thiamine mononitrate (vit B1) 100 100 mg PO DAILY #7 tabs 07/05/25 mg tablet Allergies Allergy/AdvReac Type Severity Reaction Status Date / Time No Known Allergies (No Known Allergy Verified 06/29/25 22:12 Allergies*) Review of Systems Constitutional: Constitutional: Reports difficulty sleeping (needing quetiapine) Cardiovascular: Cardiovascular: Denies chest pain and Denies dyspnea Respiratory: Respiratory: Denies dyspnea Gastrointestinal: Gastrointestinal: Denies abdominal pain Neurologic: Reports behavioral changes (states due to acute stressor) Psychiatric: Psychiatric: Reports anxiety, Reports behavioral changes (states due to acute stressor), Denies auditory hallucinations, Denies visual hallucinations, Reports homicidal ideation and Reports suicidal ideation [facility] Past Medical History Attestation statement: The following information was validated with the patient. Medical History Stroke Polysubstance abuse Schizophrenia Bipolar 1 disorder Family History Family History Father Anxiety Mother Diabetes High blood pressure Social History Social History Household Members: None Housing: Homeless Do you presently have visiting nurse or other home services: No Alcohol intake: current Alcohol intake frequency: holidays/special occasions only Patient Tobacco Use Status: Never used Tobacco Cigarette Packs Per Day: 1 Cigarettes Per Day: 20.0 Years Smoked: since age 9 Second Hand Smoke Exposure: Yes Substance Use Type: Marijuana service: No Sexual orientation: Straight/Heterosexual Physical Exam ED Vital Signs: Vital Signs - 24 hr 07/02/25 17:47 07/02/25 20:31 07/03/25 06:34 Temperature 97.4 F 98.0 F Pulse Rate 89 78 Respiratory Rate 16 16 16 Blood Pressure 140/88 H 153/86 H Pulse Oximetry 98 99 Oxygen Delivery Method Room Air Room Air 07/03/25 07:56 Temperature 97.1 F Pulse Rate 65 Respiratory Rate 15 Blood Pressure 126/76 Pulse Oximetry 98 Oxygen Delivery Method Room Air BMI result Body Mass Index 33.4 Const General: alert, awake and anxious Nutritional Appearance: well nourished Orientation/consciousness: patient oriented x3 Resp Effort & Inspection: normal respiratory effort Cardio Rate: tachycardic Rhythm: regular rhythm Skin Other: warm dry no rash Neuro General: patient oriented x3 and CN's II-XI intact bilaterally Psych Affect: Anxious affect present Attitude: cooperative Thought content: Suicidality present and Homicidality present Insight: Good insight present (Psych) Course Reevaluation(s) Reevaluation #1: I Nya Reis PA-C perform the history, exam and assessment of the patient. Radha KELLER Helped to formulate documentation Reevaluation #2: Time: 00:51 Date: 06/30/25 Provider: EDGAR Du Patient in physician observation for psychiatric evaluation.? No acute events reported overnight. No current complaints. VS stable.? Patient is in bed search status/pending CARE team evaluation. Will continue to monitor. Reevaluation #3: 10:25 AM 06/30/2025 (Dr. Ifeanyi Mathis): Patient will be a dual diagnosis bed search Time: 08:36 Date: 07/01/25 Provider: Ifeanyi Mathis, Patient in physician observation for psychiatric evaluation.? No acute events reported overnight. No current complaints. VS stable.? Patient is in bed search Will continue to monitor. Time: 10:24 Additional Reevaluation(s): Time: 17:37 Date: 07/02/25 Provider: Pop Leary MD Patient in physician observation for psychiatric evaluation.? No acute events reported overnight. No current complaints. VS stable.? Patient is in bed search status. No acute events during the day shift today. Will continue to monitor. Time: 15:28 Date: 07/03/25 Provider: Pop Leary MD Physician observation ended at 13:30. No acute events overnight. Patient was stable this morning. Patient to be admitted as inpatient to psychiatry. The patient was admitted to the psychiatric inpatient unit without incident. Medications Administered Discontinued Medications Generic Name Dose Route Start Last Admin Trade Name Freq PRN Reason Stop Dose Admin Aspirin 81 mg 06/30/25 09:00 07/05/25 08:41 Aspirin Enteric Coated 81 Mg Tablet. PO 81 mg DAILY FLORENTIN Administration Atorvastatin Calcium 40 mg 06/30/25 21:00 07/04/25 20:41 Atorvastatin Calcium 40 Mg Tablet PO 40 mg BEDTIME FLORENTIN Administration Divalproex Sodium 500 mg 07/04/25 21:00 07/04/25 20:41 Divalproex Sodium Er 500 Mg Tab.Er.24h PO 500 mg BEDTIME FLORENTIN Administration Folic Acid 1 mg 07/04/25 09:00 07/05/25 08:39 Folic Acid 1 Mg Tablet PO 1 mg DAILY FLORENTIN Administration Hydroxyzine HCl 25 mg 06/30/25 04:30 07/05/25 08:39 Hydroxyzine Hcl 25 Mg Tablet PO 25 mg BID PRN Administration mild anxiety Ibuprofen 600 mg 07/04/25 10:02 07/05/25 08:39 Ibuprofen 600 Mg Tablet PO 600 mg Q6H PRN Administration foot pain Lorazepam 2 mg 06/29/25 23:20 06/29/25 23:23 Lorazepam 1 Mg Tablet PO 06/29/25 23:21 2 mg ONCE ONE Administration Lorazepam 1 mg 07/03/25 12:52 07/03/25 21:28 Lorazepam 1 Mg Tablet PO 1 mg Q2H PRN Administration ciwa 6-10 Lorazepam 1 mg 07/04/25 12:02 07/04/25 20:41 Lorazepam 1 Mg Tablet PO 1 mg Q6H PRN Administration Anxiety Multivitamins/Vitamin C 1 tab 07/03/25 12:52 07/03/25 14:46 Multivitamin Tablet PO 07/03/25 12:53 1 tab ONCE ONE Administration Naltrexone HCl 50 mg 06/30/25 09:00 07/05/25 08:41 Naltrexone Hcl 50 Mg Tablet PO 50 mg DAILY FLORENTIN Administration Prazosin HCl 1 mg 07/04/25 21:00 07/04/25 20:42 Prazosin Hcl 1 Mg Capsule PO 1 mg BEDTIME FLORENTIN Administration Protocol Quetiapine Fumarate 50 mg 06/30/25 09:00 07/04/25 08:28 Quetiapine Fumarate 50 Mg Tablet PO 50 mg DAILY FLORENTIN Administration Quetiapine Fumarate 100 mg 06/30/25 04:30 07/02/25 20:04 Quetiapine Fumarate 100 Mg Tablet PO 100 mg DAILY PRN Administration agitation/psychosis Quetiapine Fumarate 150 mg 06/30/25 21:00 07/04/25 20:41 Quetiapine Fumarate 300 Mg Tablet PO 150 mg BEDTIME FLORENTIN Administration Risperidone 1 mg 07/04/25 12:00 07/05/25 08:39 Risperidone 1 Mg Tablet PO 1 mg BID FLORENTIN Administration Thiamine HCl 100 mg 07/04/25 09:00 07/05/25 08:41 Thiamine Hcl 100 Mg Tablet PO 100 mg DAILY FLORENTIN Administration Topiramate 25 mg 07/03/25 21:00 07/05/25 08:39 Topiramate 25 Mg Tablet PO 25 mg BID FLORENTIN Administration Medical Decision Making Medical Decision Making [facility] Narrative: 45M with past medical history of polysubstance use, alcohol use disorder on vivitrol, depression, schizophrenia, bipolar 1 disorder, HLD, and recent stroke in Aug was BIBA for an acute mental health crisis. Patient shares he had a court appearance today for attempted murder which has left him distraught. Endorsing SI, denies plan. Denies access to firearms. States he wants to hurt his brother and/or neighbor whom got him into this predicament. Shares he feels safe here and would not be safe anywhere else with the risk of hurting himself and/or this other person. Endorsing daily alcohol use of approximately a 12 pack of beer. States he drank a pint of hard liquor and a 12 pack today. Last drink 4pm. Denies history of withdrawal, withdrawal seizures, delirium tremens. Endorsing cannabis, denies other substance use. Shares the vivitrol has been helping curb his cocaine instead of alcohol cravings. I've considered the following diagnoses: decompensated psychiatric illness, alcohol intoxication serum ethanol 286, suicide attempt using other substances. Labs not showing toxic range of acetaminophen or salicylate. Utox positive for THC. Plan: Care team referral I've reviewed the following tests: CBC showing leukocytosis no anemia, BMP wnl, ethanol, acetaminophen/salicylate levels, utox positive for marijuana, ethanol 286 Differential Diagnosis Differential Diagnoses: The differential diagnosis associated with the presentation includes see medical decision-making Admission/Observation Consideration of admission/observation: Escalation of care including admission/observation considered may require inpatient level of care Consult Healthcare Provider Management of the patient was discussed with: Behavioral Health Provider Lab Data [facility] Lab Attestation statement: I reviewed the patient's lab results. 06/29/25 22:44 06/29/25 22:44 Labs: Lab Results 06/29/25 07/02/25 Range/Units 22:44 18:53 WBC 13.9 H (4.8-10.8) X10*3/uL RBC 4.67 (4.60-5.80) X10*6/uL Hgb 14.1 (14.0-18.0) g/dl Hct 40.7 L (42.0-52.0) % MCV 87.2 (80.0-98.0) fL MCH 30.2 (27.0-33.0) pg MCHC 34.6 (31.0-36.0) g/dl RDW 14.2 (11.0-16.0) % Plt Count 439 H (160-400) X10*3/uL MPV 8.5 L (9.4-12.4) fL Immature Gran % (Auto) 0.4 (0.0-0.4) % Neut % (Auto) 59.2 (45-73) % Lymph % (Auto) 33.3 (20-40) % [place] % (Auto) 5.8 (2-11) % Eos % (Auto) 0.7 (0-4) % Baso % (Auto) 0.6 (0-2) % Lymph # (Auto) 4.6 (1.2-4.9) X10*3/uL [place] # (Auto) 0.8 (0.1-1.2) X10*3/uL Eos # (Auto) 0.1 (0.0-0.4) X10*3/uL Baso # (Auto) 0.1 (0.0-0.2) X10*3/uL Abs Immat Gran (auto) 0.05 H (0.00-0.03) X10*3/uL Absolute Neuts (auto) 8.2 (2.0-8.3) x10*3/uL Absolute Nucleated RBC 0.000 (0.0-0.012) X10*3/uL Nucleated RBC % (auto) 0.0 (0.0-0.2) /100WBC Sodium 140 (135-145) mmol/L Potassium 3.6 (3.3-5.1) mmol/L Chloride 106 (96-108) mmol/L Carbon Dioxide 23 (22-29) mmol/L Anion Gap 15 (12-20) BUN 8 L (9-16) mg/dL Creatinine 0.75 (0.5-1.4) mg/dL Estim Creat Clear Calc 139.4 Estimated GFR > 60 Random Glucose 106 (60-115) mg/dL Calcium 9.0 (8.4-10.2) mg/dL Urine Color Yellow Urine Appearance Clear Urine pH 5.5 (5.0-9.0) Ur Specific [place] 1.025 (1.005-1.025) Urine Protein Trace (Neg-Trace) mg/dL Urine Glucose (UA) Negative (Negative) mg/dL Urine Ketones Trace (Negative) mg/dL Urine Blood Small (1+) H (Negative) Urine Nitrite Negative (Negative) Ur Leukocyte Esterase Negative (Negative) Urine RBC 3-5 H (0-2) /HPF Urine WBC 0-5 (0-5) /HPF Ur Squamous Epith Cells 0-2 (0-2) /HPF Urine Bacteria None Seen (None Seen) Hyaline Casts 0-2 (0-2) /LPF Salicylates < 5.0 L (15-30) mg/dL Urine Opiates Screen Not Detected (Not Detect) Ur Buprenorphine Scrn Not Detected (Not Detect) ng/mL Ur Oxycodone Screen Not Detected (Not Detect) ng/mL Urine Methadone Screen Not Detected (Not Detect) ng/mL Urine Fentanyl Screen Not Detected (Not Detect) Acetaminophen < 3 (<30) mcg/mL Ur Barbiturates Screen Not Detected (Not Detect) Ur Phencyclidine Scrn Not Detected (Not Detect) Ur Amphetamines Screen Not Detected (Not Detect) U Benzodiazepines Scrn Not Detected (Not Detect) Urine Cocaine Screen Not Detected (Not Detect) U Marijuana (THC) Screen POSITIVE H (Not Detect) Ethyl Alcohol 286 mg/dL Discharge Plan Discharge Clinical Impression: Suicidal ideation, Alcohol use disorder, Cannabis use disorder Major depression Qualifiers: Major depression recurrence: unspecified whether recurrent Active/Remission status: remission status unspecified Qualified Code(s): F32.9 - Major depressive disorder, single episode, unspecified Patient Disposition: Admitted As Inpatient Interventions: Admission Worksheet (ED) Last Done: 07/03/25 13:50 Discharge Date/Time: 07/03/25 14:51
--- NOTE | 2025-06-30 04:27 | PC.NURSE ---
med rec completed, pt aware of medication that he takes
[2025-06-30 06:25] VITALS: BP 133/78; PULSE 77; RESP 16; TEMP 36.5; O2SAT 99
--- NOTE | 2025-06-30 07:33 | PC.NURSE ---
Assumed care, report received. Pt is currently sleeping, safety maintained.
[2025-06-30] MEDS: Aspirin Enteric Coated 81 MG TABLET.DR PO (09:00)
--- NOTE | 2025-06-30 09:53 | MHC.CARE ---
Pt will be a dual dx bedsearch
[2025-06-30 16:14] VITALS: BP 97/60
--- NOTE | 2025-06-30 16:15 | PC.NURSE ---
Pt has been quiet and isolating. His mother calls to check on him and he is given her number.
[2025-06-30 16:17] VITALS: BP 150/77; PULSE 69; RESP 12; TEMP 36.6; O2SAT 99
[2025-06-30 21:56] VITALS: BP 121/71; PULSE 61; RESP 16; TEMP 36.1; O2SAT 99
[2025-07-01 06:07] VITALS: RESP 16
[2025-07-01 07:50] VITALS: BP 129/68; PULSE 71; RESP 16; TEMP 36.2; O2SAT 99
[2025-07-01] MEDS: Aspirin Enteric Coated 81 MG TABLET.DR PO (08:17)
--- NOTE | 2025-07-01 09:03 | PC.NURSE ---
Assumed care, report received. Pt is quiet this AM, he eats breakfast and takes his meds, he goes back to sleep. continues to endorse intermittent SI/HI
[2025-07-01 13:46] VITALS: BP 139/91; PULSE 104; RESP 18; TEMP 37; O2SAT 97
--- NOTE | 2025-07-01 19:54 | PC.NURSE ---
pt requested meds early- stated he wanted to go to sleep.
--- NOTE | 2025-07-02 07:54 | PC.NURSE ---
Assumed care, report received. Pt is currently sleeping, safety maintained.
--- NOTE | 2025-07-02 07:55 | ECG_ITS ---
Test Reason : R/O PROLONGED QT Blood Pressure : */* mmHG Vent. Rate : 76 BPM Atrial Rate : 76 BPM P-R Int : 140 ms QRS Dur : 96 ms QT Int : 380 ms P-R-T Axes : 40 61 19 degrees QTcB Int : 427 ms Normal sinus rhythm with sinus arrhythmia Normal ECG When compared with ECG of 14-Jun-2025 08:07, No significant change was found Referred By: Pop Leary Electronically Signed By: Ciro Thurston
[2025-07-02] MEDS: Aspirin Enteric Coated 81 MG TABLET.DR PO (09:25)
[2025-07-02 10:26] VITALS: BP 110/66; PULSE 61; RESP 16; TEMP 36.6; O2SAT 96
[2025-07-02 17:47] VITALS: BP 140/88; PULSE 89; RESP 16; TEMP 36.3; O2SAT 98
[2025-07-02 19:11] LABS: Appearance Urine Clear; Glucose Urine UA Negative (Negative); PH 5.5 (5.0-9.0); Specific Gravity - Urine 1.025 (1.005-1.025); UMIC TRIGGER UACC YES
[2025-07-02 20:31] VITALS: BP 153/86; PULSE 78; RESP 16; TEMP 36.7; O2SAT 99
[2025-07-03 06:34] VITALS: RESP 16
[2025-07-03 07:56] VITALS: BP 126/76; PULSE 65; RESP 15; TEMP 36.2; O2SAT 98
[2025-07-03] MEDS: Aspirin Enteric Coated 81 MG TABLET.DR PO (08:04)
--- NOTE | 2025-07-03 09:09 | PC.NURSE ---
pt medicated per provider order. currently has no complaints. resting in no apparent distress/watching tv. pending inpatient bed search. plan of care ongoing.
--- NOTE | 2025-07-03 11:19 | PHA.MEDREC ---
Addendum entered by Gregory Waller RPh 07/03/25 11:40: Reviewed by [facility] Original Note: Pharmacy Consult ? Medication Reconciliation Pharmacy has reviewed the medication reconciliation done by nursing. Claims match med list.
--- NOTE | 2025-07-03 13:49 | PC.NURSE ---
report given to Lizzy Crow RN on M5 at this time.
[2025-07-03 14:58] VITALS: BP 167/86; PULSE 96; RESP 15; TEMP 36.8; O2SAT 97
[2025-07-03 15:00] VITALS: BMI 34.3
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
[2025-07-03 20:00] VITALS: BP 135/88; PULSE 91; RESP 18; TEMP 36.4; O2SAT 97
[2025-07-04 08:00] VITALS: BP 124/77; PULSE 73; RESP 18; TEMP 36.9; O2SAT 98
--- NOTE | 2025-07-04 08:22 | HO.PM.IMCN ---
History of Present Illness Data of Consult Service Date: 07/04/25 Primary Care Provider: None Physician HPI Reason for consult: Medical management 45M with past medical history of polysubstance use, alcohol use disorder on vivitrol, depression, schizophrenia, bipolar 1 disorder, HLD, and recent stroke in Apr was BIBA for mental health crisis. Patient shares he had a court appearance today for attempted murder which has left him distraught. Endorsing SI, denies plan. Denies access to firearms. States he wants to hurt his brother and/or neighbor who got him in this predicament. Endorsing daily alcohol use. Denies history of withdrawal, withdrawal seizures, delirium tremens. Endorsing cannabis, denies other substance use. CBC showing leukocytosis no anemia, BMP wnl, ethanol, acetaminophen/salicylate levels. utox positive for marijuana, ethanol 286. Patient has a known subacute fracture of the 5th metatarsal base. He was scheduled to follow up with outpatient Podiatry but he reports that he missed this appointment. Not wearing a brace. Review of Systems Review of Systems: Denies any shortness of breath, chest pain, headaches, dysuria, abdominal pain or discomfort, nausea, vomiting or diarrhea. Denies chills or fever. [facility] Medical History (Updated 07/03/25 @ 12:53 by Marisol Kim) Stroke Polysubstance abuse Schizophrenia Bipolar 1 disorder Family History Father Anxiety Mother Diabetes High blood pressure Social History Household Members: None Housing: Homeless Do you presently have visiting nurse or other home services: No Alcohol intake: current Alcohol intake frequency: holidays/special occasions only Patient Tobacco Use Status: Never used Tobacco Cigarette Packs Per Day: 1 Cigarettes Per Day: 20.0 Years Smoked: since age 9 Second Hand Smoke Exposure: Yes Substance Use Type: Marijuana service: No Sexual orientation: Straight/Heterosexual Meds Allergies Allergy/AdvReac Type Severity Reaction Status Date / Time No Known Allergies (No Known Allergy Verified 06/29/25 22:12 Allergies*) Active Medications: Current Medications Acetaminophen (Acetaminophen 325 Mg Tablet) 650 mg PO Q6H PRN PRN Reason: Headache/Pain, Scale 1-10 Al Hydroxide/Mg Hydroxide (Magnesium Hydrox/Alum Hydrox 30 Ml Oral.Susp) 30 ml PO Q6H PRN PRN Reason: Heartburn/Nausea Aspirin (Aspirin Enteric Coated 81 Mg Tablet.Dr) 81 mg PO DAILY [facility] Last Admin: 07/03/25 08:04 Dose: 81 mg Atorvastatin Calcium (Atorvastatin Calcium 40 Mg Tablet) 40 mg PO BEDTIME [facility] Last Admin: 07/03/25 20:26 Dose: 40 mg Folic Acid (Folic Acid 1 Mg Tablet) 1 mg PO DAILY [facility] Hydroxyzine HCl (Hydroxyzine Hcl 25 Mg Tablet) 25 mg PO BID PRN PRN Reason: mild anxiety Last Admin: 07/03/25 15:40 Dose: 25 mg Lorazepam (Lorazepam 1 Mg Tablet) 1 mg PO Q2H PRN PRN Reason: ciwa 6-10 Last Admin: 07/03/25 21:28 Dose: 1 mg Lorazepam (Lorazepam 1 Mg Tablet) 2 mg PO Q2H PRN PRN Reason: ciwa 11-15 Lorazepam (Lorazepam 1 Mg Tablet) 3 mg PO Q2H PRN PRN Reason: ciwa 16+ Magnesium Hydroxide (Milk Of Magnesia 30 Ml Oral.Susp) 30 ml PO DAILY PRN PRN Reason: Constipation Naltrexone HCl (Naltrexone Hcl 50 Mg Tablet) 50 mg PO DAILY [facility] Last Admin: 07/03/25 08:04 Dose: 50 mg Nicotine Polacrilex (Nicotine Polacrilex 2 Mg Gum) 4 mg BUCCAL Q2H PRN PRN Reason: Nicotine Cravings Quetiapine Fumarate (Quetiapine Fumarate 50 Mg Tablet) 50 mg PO DAILY [facility] Last Admin: 07/03/25 08:04 Dose: 50 mg Quetiapine Fumarate (Quetiapine Fumarate 100 Mg Tablet) 100 mg PO DAILY PRN PRN Reason: agitation/psychosis Last Admin: 07/02/25 20:04 Dose: 100 mg Quetiapine Fumarate (Quetiapine Fumarate 300 Mg Tablet) 150 mg PO BEDTIME [facility] Last Admin: 07/03/25 20:25 Dose: 150 mg Thiamine HCl (Thiamine Hcl 100 Mg Tablet) 100 mg PO DAILY [facility] Topiramate (Topiramate 25 Mg Tablet) 25 mg PO BID [facility] Last Admin: 07/03/25 20:25 Dose: 25 mg Trazodone HCl (Trazodone Hcl 50 Mg Tablet) 50 mg PO BEDTIME MRX1 PRN PRN Reason: Insomnia Physical Exam Vital Signs and Narrative: Vital Signs: Last Vital Signs Temp 97.5 F 07/03/25 20:00 Pulse 91 07/03/25 20:00 Resp 18 07/03/25 20:00 BP 135/88 07/03/25 20:00 Pulse Ox 97 07/03/25 20:00 O2 Del Method Room Air 07/03/25 20:00 BMI result Body Mass Index 34.3 CONST: Alert and oriented, in NAD. Well nourished HEENT: Normocephalic, atraumatic, MMM, Eyes clear, Neck supple RESP: Lungs clear, RRR even and regular HEART:,RRR, S1, S2. No edema GI:Abdomen Soft NT, ND. + BS times four :Deferred SKIN: Warm dry and intact, no visible lesions or rashes NEURO:CN II-XII Intact bilaterally, Sensation intact. Speech clear PSYCH: Normal affect Results Labs 06/29/25 22:44 06/29/25 22:44 Assessment and Plan (1) HLD (hyperlipidemia): Status: Acute Plan 45-year-old male with a past medical history of bipolar disorder, schizophrenia, hyperlipidemia, polysubstance abuse, history of 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 Schizophrenia/bipolar disorder/polysubstance abuse, alcohol dependence/SI Treatment per psychiatric team Hyperlipidemia/left hemispheric infarct 04/2025 Continue statin and ASA Avoid alcohol and illicit substances BP control, blood pressure currently within normal limits. Subacute Fracture 5th metatarsal of left foot Will need outpatient follow up with the high climber-was scheduled but patient reports that he missed this appointment. Thank you for allowing me to participate in the care of this patient. Will follow as needed, please notify medical provider with any changes in condition or concerns
[2025-07-04] MEDS: Aspirin Enteric Coated 81 MG TABLET.DR PO (08:28)
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
[2025-07-04 19:35] VITALS: BP 131/83; PULSE 84; RESP 16; TEMP 36.6; O2SAT 97
[2025-07-04 20:42] VITALS: BP 131/83
[2025-07-05 07:00] VITALS: BMI 34.5
[2025-07-05 08:00] VITALS: BP 100/60; PULSE 71; RESP 16; TEMP 36.4; O2SAT 98
[2025-07-05] MEDS: Aspirin Enteric Coated 81 MG TABLET.DR PO (08:41)
[2025-07-05 09:10] LABS: Hemoglobin A1C 138.6045 umol/L; Total Hemoglobin (HGBA1C) 3704.5019 umol/L
[2025-07-05 09:20] LABS: Cholesterol 177 mg/dL (<200); HDL Cholesterol 60 mg/dL (>40); Magnesium 1.9 mg/dL (1.6-2.6); Triglycerides 223 mg/dL (<150)
[2025-07-05 09:36] LABS: Free T4 (Free Thyroxine) 1.05 ng/dL (0.71-1.85); Thyroid Stimulating Hormone 1.69 uIU/mL (0.32-4.0)
[2025-07-05 09:49] LABS: Folate 12.8 ng/mL (> or = 4.0); Vitamin B12 509 pg/mL (200-900)
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
--- NOTE | 2025-07-05 15:30 | MHC.RECOVRN ---
Consult was placed to Addiction Medicine for alcohol use, however pt was discharged prior to being seen.
== END 2025-07-05 11:30 | disposition home or self-care (01) | DRG 885 ==
LOC: HO.ED 07-03 12:53 → HO.PM5 07-03 13:15
PROVIDERS: Physician Assistant Medical; Admitting Provider Clinical Nurse Specialist Psychiatric/Mental Health, Adult; Emergency Provider Emergency Medicine; Visit Provider Clinical Nurse Specialist Psychiatric/Mental Health, Adult
DX: F31.9 Bipolar disorder, unspecified (principal); Z59.02 Unsheltered homelessness; R45.851 Suicidal ideations; E78.5 Hyperlipidemia, unspecified; Y90.8 Blood alcohol level of 240 mg/100 ml or more; F10.20 Alcohol dependence, uncomplicated; F19.10 Other psychoactive substance abuse, uncomplicated; F60.9 Personality disorder, unspecified; Z86.73 Personal history of transient ischemic attack (TIA), and cerebral infarction without residual deficits; Z79.82 Long term (current) use of aspirin; Z79.899 Other long term (current) drug therapy
CPT/HCPCS: 36415; 80048; 80061; 80143; 80179; 80307; 81001; 82607; 82746; 83036; 83735; 84439; 84443; 85025; 93005; 99285; S9485

== ENCOUNTER → 2025-07-02 07:55 | Outpatient (BNV) | payer MEDICARE, SELFPAY | PROVIDERS: Admitting Provider Clinical Nurse Specialist Psychiatric/Mental Health, Adult; Emergency Provider Emergency Medicine; Visit Provider Internal Medicine Cardiovascular Disease | DX: Z13.6 Encounter for screening for cardiovascular disorders (principal) | CPT/HCPCS: 93010 ==

== ENCOUNTER → 2025-07-03 12:40 | Outpatient (BNV) | payer MEDICARE, SELFPAY | PROVIDERS: Admitting Provider Clinical Nurse Specialist Psychiatric/Mental Health, Adult; Emergency Provider Emergency Medicine; Visit Provider Nurse Practitioner Family | DX: E78.5 Hyperlipidemia, unspecified (principal) | CPT/HCPCS: 99221 ==

== ENCOUNTER → 2025-07-03 12:40 | Outpatient (BNV) | payer MEDICARE, SELFPAY | PROVIDERS: Admitting Provider Clinical Nurse Specialist Psychiatric/Mental Health, Adult; Emergency Provider Emergency Medicine; Visit Provider Clinical Nurse Specialist Psychiatric/Mental Health, Adult | DX: F31.4 Bipolar disorder, current episode depressed, severe, without psychotic features (principal); F60.9 Personality disorder, unspecified; F19.10 Other psychoactive substance abuse, uncomplicated; E78.5 Hyperlipidemia, unspecified | CPT/HCPCS: 90792; 99238 ==